=== PATIENT | female | born 1980 | race African-American/Black ===

== ENCOUNTER 2017-02-27 17:58 | Inpatient (IN) | payer MEDICARE, OTHER ==
[2017-02-27] MEDS ORDERED: SODIUM CHLORIDE 0.9% 1,000 ML IV STA (18:26)
[2017-02-27 18:29] LABS: Glucose,Whole Blood 125 mg/dL (75-99)
--- NOTE | 2017-02-27 18:39 | ED ---
Overdose HPI - General Stated Complaint: overdose Time Seen by Provider: 02/27/17 18:00 - History of Present Illness Initial Comments: 36-year-old female with psychiatric history states she was hearing voices and took a lot of her medication appears as though she may have taken up to 40 trazodone. Exact time is unknown. The patient is not able give a reliable history. She has used cocaine according to the nurses history. According to previous notes she has bipolar schizoaffective disorder and polysubstance abuse - Related Data Home Medications Medication Instructions Recorded Confirmed Omeprazole [PriLOSEC] 20 mg PO AC-BID 12/14/13 02/27/17 ARIPiprazole [Abilify] 15 mg PO DAILY 02/27/17 02/27/17 Albuterol Sulfate [Proair Hfa] 2 puff INHALATION RT-Q6H PRN 02/27/17 02/27/17 Citalopram Hydrobromide [CeleXA] 40 mg PO DAILY 02/27/17 02/27/17 Ibuprofen [Motrin] 800 mg PO TID PRN 02/27/17 02/27/17 Oxybutynin Chloride [Ditropan] 5 mg PO HS 02/27/17 02/27/17 Ranitidine HCl [Zantac] 150 mg PO BID 02/27/17 02/27/17 Trihexyphenidyl HCl 5 mg PO BID 02/27/17 02/27/17 busPIRone HCL 15 mg PO TID 02/27/17 02/27/17 fluPHENAZine DECANOATE [Prolixin 50 mg IM MO 02/27/17 02/27/17 Decanoate] traZODone HCL 300 mg PO HS 02/27/17 02/27/17 Allergies Allergy/AdvReac Type Severity Reaction Status Date / Time No Known Allergies Allergy Verified 04/13/16 19:05 Review of Systems ROS Statement: Those systems with pertinent positive or pertinent negative responses have been documented in the HPI. ROS Other: All systems not noted in ROS Statement are negative. Limitations: ROS unobtainable due to patients medical condition Past Medical History Past Medical History: Asthma, GERD/Reflux History of Any Multi-Drug Resistant Organisms: None Reported Past Surgical History: Hysterectomy, Orthopedic Surgery Additional Past Surgical History / Comment(s): Unknown surgery dates. Right foot surgery. Partial Hysterectomy. Birthmark Removal. Right shoulder surgery Past Anesthesia/Blood Transfusion Reactions: No Reported Reaction Past Psychological History: Anxiety, Bipolar, Depression, Schizoaffective Disorder Smoking Status: Current every day smoker Past Alcohol Use History: Daily Additional Past Alcohol Use History / Comment(s): Pt. states she drinks one or two beers a day. Past Drug Use History: Cocaine, Marijuana Additional Drug Use History / Comment(s): Pt. states she abuses crack cocaine and states she takes "a hit" but won't state how often. - Past Family History Mother Family Medical History: Diabetes Mellitus, Hypertension General Exam Limitations: altered mental status General appearance: alert Head exam: Present: atraumatic Eye exam: Present: PERRL, EOMI ENT exam: Present: normal oropharynx, mucous membranes moist Neck exam: Present: normal inspection Respiratory exam: Present: normal lung sounds bilaterally Cardiovascular Exam: Present: regular rate, normal heart sounds GI/Abdominal exam: Present: soft, normal bowel sounds. Absent: tenderness Neurological exam: Present: alert, CN II-XII intact Psychiatric exam: Present: agitated, anxious Skin exam: Present: warm, dry Course Vital Signs 02/27/17 02/27/17 02/27/17 18:43 18:46 19:48 Temperature 97.1 F L 98.3 F Pulse Rate 84 84 66 Respiratory 18 18 18 Rate Blood Pressure 119/66 130/60 123/57 O2 Sat by Pulse 99 99 100 Oximetry Medical Decision Making - Medical Decision Making Spoke to Dr. Lentz network operations center technician for Dr. Dixon, be admitted to the CCU EKG was checked and spoken to poison control they were have recommended IV magnesium spoken to Dr. José the principal account clerk and patient will be admitted to ICU - Lab Data Result diagrams: 02/27/17 18:25 02/27/17 18:25 Lab Results 02/27/17 02/27/17 02/27/17 Range/Units 18:25 18:25 18:25 WBC (3.8-10.6) k/uL RBC (3.80-5.40) m/uL Hgb (11.4-16.0) gm/dL Hct (34.0-46.0) % MCV (80.0-100.0) fL MCH (25.0-35.0) pg MCHC (31.0-37.0) g/dL RDW (11.5-15.5) % Plt Count (150-450) k/uL Neutrophils % % Lymphocytes % % Monocytes % % Eosinophils % % Basophils % % Neutrophils # (1.3-7.7) k/uL Lymphocytes # (1.0-4.8) k/uL Monocytes # (0-1.0) k/uL Eosinophils # (0-0.7) k/uL Basophils # (0-0.2) k/uL Sodium 143 (137-145) mmol/L Potassium 3.3 L (3.5-5.1) mmol/L Chloride 111 H (98-107) mmol/L Carbon Dioxide 19 L (22-30) mmol/L Anion Gap 13 mmol/L BUN 5 L (7-17) mg/dL Creatinine 0.80 (0.52-1.04) mg/dL Est GFR (MDRD) Af Amer >60 (>60 ml/min/1.73 sqM) Est GFR (MDRD) Non-Af >60 (>60 ml/min/1.73 sqM) Glucose 108 H (74-99) mg/dL POC Glucose (mg/dL) 125 H (75-99) mg/dL POC Glu Band Edger ID Fide Gardiner Calcium 10.1 (8.4-10.2) mg/dL Total Bilirubin 0.9 (0.2-1.3) mg/dL AST 24 (14-36) U/L ALT 28 (9-52) U/L Alkaline Phosphatase 86 (38-126) U/L Total Creatine Kinase 213 H (30-135) U/L CK-MB (CK-2) 1.2 (0.0-2.4) ng/mL CK-MB (CK-2) Rel Index 0.6 Total Protein 7.4 (6.3-8.2) g/dL Albumin 4.5 (3.5-5.0) g/dL Urine HCG, Qual (Not Detectd) Salicylates <1.0 mg/dL Urine Opiates Screen (NotDetected) Ur Oxycodone Screen (NotDetected) Urine Methadone Screen (NotDetected) Ur Propoxyphene Screen (NotDetected) Acetaminophen <10.0 ug/mL Ur Barbiturates Screen (NotDetected) U Tricyclic Antidepress (NotDetected) Ur Phencyclidine Scrn (NotDetected) Ur Amphetamines Screen (NotDetected) U Methamphetamines Scrn (NotDetected) U Benzodiazepines Scrn (NotDetected) Urine Cocaine Screen (NotDetected) U Marijuana (THC) Screen (NotDetected) Serum Alcohol <10 mg/dL 02/27/17 02/27/17 02/27/17 Range/Units 18:25 18:37 18:37 WBC 8.6 (3.8-10.6) k/uL RBC 3.99 (3.80-5.40) m/uL Hgb 12.8 (11.4-16.0) gm/dL Hct 37.0 (34.0-46.0) % MCV 92.7 (80.0-100.0) fL MCH 32.0 (25.0-35.0) pg MCHC 34.5 (31.0-37.0) g/dL RDW 14.1 (11.5-15.5) % Plt Count 327 (150-450) k/uL Neutrophils % 66 % Lymphocytes % 27 % Monocytes % 4 % Eosinophils % 1 % Basophils % 0 % Neutrophils # 5.7 (1.3-7.7) k/uL Lymphocytes # 2.3 (1.0-4.8) k/uL Monocytes # 0.4 (0-1.0) k/uL Eosinophils # 0.1 (0-0.7) k/uL Basophils # 0.0 (0-0.2) k/uL Sodium (137-145) mmol/L Potassium (3.5-5.1) mmol/L Chloride (98-107) mmol/L Carbon Dioxide (22-30) mmol/L Anion Gap mmol/L BUN (7-17) mg/dL Creatinine (0.52-1.04) mg/dL Est GFR (MDRD) Af Amer (>60 ml/min/1.73 sqM) Est GFR (MDRD) Non-Af (>60 ml/min/1.73 sqM) Glucose (74-99) mg/dL POC Glucose (mg/dL) (75-99) mg/dL POC Glu Band Edger ID Calcium (8.4-10.2) mg/dL Total Bilirubin (0.2-1.3) mg/dL AST (14-36) U/L ALT (9-52) U/L Alkaline Phosphatase (38-126) U/L Total Creatine Kinase (30-135) U/L CK-MB (CK-2) (0.0-2.4) ng/mL CK-MB (CK-2) Rel Index Total Protein (6.3-8.2) g/dL Albumin (3.5-5.0) g/dL Urine HCG, Qual Not Detected (Not Detectd) Salicylates mg/dL Urine Opiates Screen Detected H (NotDetected) Ur Oxycodone Screen Not Detected (NotDetected) Urine Methadone Screen Not Detected (NotDetected) Ur Propoxyphene Screen Not Detected (NotDetected) Acetaminophen ug/mL Ur Barbiturates Screen Not Detected (NotDetected) U Tricyclic Antidepress Not Detected (NotDetected) Ur Phencyclidine Scrn Not Detected (NotDetected) Ur Amphetamines Screen Not Detected (NotDetected) U Methamphetamines Scrn Not Detected (NotDetected) U Benzodiazepines Scrn Detected H (NotDetected) Urine Cocaine Screen Detected H (NotDetected) U Marijuana (THC) Screen Detected H (NotDetected) Serum Alcohol mg/dL - EKG Data -: EKG Interpreted by Me 02/27/17 20:18 EKG 02/27/2017 1941 ventricular rate 60 bpm VT interval 138 ms QRS duration 86 ms QT interval 506 ms normal sinus rhythm prolonged QT Critical Care Time Critical Care Time: Yes Total Critical Care Time: 45 Disposition Clinical Impression: Overdose Disposition: ADMITTED IP TO THIS [facility] Condition: Critical Referrals: Cleo Dixon DO [Primary Care Provider] - 1-2 days Time of Disposition: 20:29
[2017-02-27 18:49] LABS: Basophils % (A) 0 %; CH 31.4; Eosinophils # (A) 0.1 k/uL (0-0.7); Eosinophils % (A) 1 %; HDW 2.53; HGB 12.8 gm/dL (11.4-16.0); Luc # (Auto) 0.14; Luc % (Auto) 2; Lymphocytes # (A) 2.3 k/uL (1.0-4.8); Lymphocytes % (A) 27 %; MCHC 34.5 g/dL (31.0-37.0); MCV 92.7 fL (80.0-100.0); Mean Platelet Volume 8.2; Monocytes # (A) 0.4 k/uL (0-1.0); Monocytes % (A) 4 %; Neutrophils # (A) 5.7 k/uL (1.3-7.7); Neutrophils % (A) 66 %; RBC 3.99 m/uL (3.80-5.40); RDW 14.1 % (11.5-15.5); WBC 8.6 k/uL (3.8-10.6); WBC (Perox) 8.38
--- NOTE | 2017-02-27 18:58 | XR ---
EXAMINATION TYPE: XR chest 1V portable DATE OF EXAM: 02/27/2017 COMPARISON: NONE HISTORY: Drug overdose TECHNIQUE: Single AP portable frontal upright view of the chest is obtained. FINDINGS: There is no focal air space opacity, pleural effusion, or pneumothorax seen. The cardiac silhouette size is within normal limits. The osseous structures are intact. IMPRESSION: No acute process.
[2017-02-27 19:04] LABS: ALT 28 U/L (9-52); AST 24 U/L (14-36); Acetaminophen <10.0 ug/mL; Alcohol <10 mg/dL; Alkaline Phosphatase 86 U/L (38-126); Anion Gap 13 mmol/L; Blood Urea Nitrogen 5 mg/dL (7-17); Calcium 10.1 mg/dL (8.4-10.2); Carbon Dioxide 19 mmol/L (22-30); Chloride 111 mmol/L (98-107); Glucose 108 mg/dL (74-99); Non-African American GFR(MDRD) >60 (>60 ml/min/1.73 sqM); Potassium 3.3 mmol/L (3.5-5.1); Salicylate <1.0 mg/dL; Sodium 143 mmol/L (137-145); Total Bilirubin 0.9 mg/dL (0.2-1.3); Total Protein 7.4 g/dL (6.3-8.2)
[2017-02-27 19:33] LABS: Creatine Kinase MB 1.2 ng/mL (0.0-2.4)
[2017-02-27] MEDS ORDERED: POTASSIUM CHLORIDE 10 MEQ, LIDOCAINE 2% INJ 10 MG in SODIUM CHLORIDE 0.9% 100 ML IVPB SCH (20:00)
[2017-02-27] MEDS ORDERED: METOCLOPRAMIDE 5 MG/ML 2 ML VIAL IVP STA (20:25)
[2017-02-27] MEDS ORDERED: NALOXONE 0.4 MG/ML 1 ML VIAL IV PRN (20:30)
[2017-02-27] MEDS ORDERED: PANTOPRAZOLE 40 MG/10 ML VIAL IV SCH (20:30)
[2017-02-27] MEDS ORDERED: ALBUTEROL NEBULIZED 2.5 MG/3 ML INHALATION PRN (20:33)
[2017-02-27] MEDS: MAGNESIUM SULFATE-D5W PMX 1 GM in DEXTROSE/WATER 1 100ML.BAG IVPB SCH (20:41)
[2017-02-27] MEDS: SODIUM CHLORIDE 0.9% 1,000 ML IV SCH (20:42)
[2017-02-27 21:40] LABS: Glucose,Whole Blood 138 mg/dL (75-99)
[2017-02-27 21:58] VITALS: BMI 33.8
[2017-02-28 01:07] LABS: Magnesium 2.2 mg/dL (1.6-2.3); Potassium 3.6 mmol/L (3.5-5.1)
[2017-02-28] MEDS ORDERED: Potassium Replacement Protocol 1 EACH MISC MISCELLANE PRN (01:15)
[2017-02-28] MEDS: MAGNESIUM SULFATE-D5W PMX 1 GM in DEXTROSE/WATER 1 100ML.BAG IVPB SCH (01:20)
[2017-02-28] MEDS: POTASSIUM CHLORIDE 10 MEQ, LIDOCAINE 2% INJ 10 MG in SODIUM CHLORIDE 0.9% 100 ML IV SCH ×2 (01:45→02:53)
[2017-02-28 04:33] LABS: Basophils % (A) 1 %; CH 31.2; CHCM 32.1; Eosinophils # (A) 0.1 k/uL (0-0.7); Eosinophils % (A) 1 %; HCT 35.6 % (34.0-46.0); HDW 2.33; HGB 11.6 gm/dL (11.4-16.0); Luc # (Auto) 0.06; Luc % (Auto) 1; Lymphocytes # (A) 0.8 k/uL (1.0-4.8); Lymphocytes % (A) 14 %; MCH 31.7 pg (25.0-35.0); MCHC 32.5 g/dL (31.0-37.0); MCV 97.6 fL (80.0-100.0); Mean Platelet Volume 8.1; Monocytes # (A) 0.3 k/uL (0-1.0); Monocytes % (A) 5 %; Neutrophils # (A) 4.4 k/uL (1.3-7.7); Neutrophils % (A) 78 %; RBC 3.65 m/uL (3.80-5.40); RDW 14.1 % (11.5-15.5); WBC 5.6 k/uL (3.8-10.6); WBC (Perox) 5.66
[2017-02-28 04:45] LABS: ALT 24 U/L (9-52); AST 21 U/L (14-36); Alkaline Phosphatase 68 U/L (38-126); Anion Gap 10 mmol/L; Blood Urea Nitrogen 6 mg/dL (7-17); Calcium 9.5 mg/dL (8.4-10.2); Carbon Dioxide 13 mmol/L (22-30); Chloride 117 mmol/L (98-107); Glucose 126 mg/dL (74-99); Non-African American GFR(MDRD) >60 (>60 ml/min/1.73 sqM); Potassium 3.8 mmol/L (3.5-5.1); Sodium 140 mmol/L (137-145); Total Protein 6.2 g/dL (6.3-8.2)
[2017-02-28] MEDS: ARIPiprazole 15 MG TAB PO SCH (09:21)
[2017-02-28] MEDS: CITALOPRAM HYDROBROMIDE 20 MG TAB PO SCH (09:21)
[2017-02-28] MEDS: SODIUM CHLORIDE 0.9% 1,000 ML IV SCH ×3 (09:21→21:55)
[2017-02-28] MEDS: busPIRone HCl 5 MG TAB PO SCH ×3 (09:22→21:53)
[2017-02-28] MEDS: PANTOPRAZOLE 40 MG TABLET PO SCH (10:12)
--- NOTE | 2017-02-28 13:00 | CONS ---
A 36 year old female who apparently has psychiatric history. Took an unknown number of Trazodone. I was told by the ER doctor that she took up to 40 Trazodone. She was admitted to the ICU for monitoring and evaluation of her QT interval. The patient apparently has a history of polysubstance abuse, schizoaffective disorder and bipolar disorder. Anyway the patient is here in the ICU resting comfortably. Her home medications include: 1. Omeprazole. 2. Abilify. 3. Pro-Air HFA inhaler. 4. Celexa. 5. Motrin. 6. Ditropan. 7. Zantac. 8. ( ). 9. Hydrochloride. 10. BuSpar. 11. Prolixin. 12. Trazodone. ALLERGIES: Denied. Medical history includes schizoaffective disorder, bipolar disorder, mild asthma , gastroesophageal reflux disease. Surgical history includes right shoulder surgery, right foot surgery, aniya removal, partial hysterectomy, orthopedic procedures. Social history is positive for tobacco use. There is also history of marijuana use. She has abused crack cocaine in the past. Family history is positive for diabetes and hypertension. She does drink one to beers a day as well. REVIEW OF SYSTEMS: CONSTITUTIONAL: Negative. NEUROLOGICAL: Negative. HEENT: Negative. CARDIOVASCULAR: Negative. PULMONARY: Negative. GI/: Negative. HEMATOLOGICAL: Negative. RHEUMATOLOGICAL: Negative. ENDOCRINOLOGICAL: Negative. DERMATOLOGICAL: All negative. Currently, her temperature is 99.1, heart rate is 69. Respiratory rate is 11. Blood pressure 122/64. Mean 83. Room air saturation 96%. Appears in no acute distress. HEENT: Grossly unremarkable. Mucous membranes are moist. No oral lesions. Neck supple. Full range of motion. No adenopathy. no thyromegaly. Cardiovascular examination reveals regular rate and rhythm. S1, S2 normal. Lungs reveal clear breath sounds. No wheezes, rhonchi or crackles. Abdomen soft. Bowel sounds heard. There are no masses or tenderness. Skin without rash. Neurological examination nonfocal. Extremities revealed no evidence of edema, cyanosis or clubbing. Labs are reviewed. White count 5.6, hemoglobin 11.6, hematocrit 35.6, platelet count ( ). Sodium and potassium normal. Chloride 117, CO2 13, anion gap 10. BUN and creatinine 6 and 0.9 consistent with an non-anion gap, hyperchloremic metabolic acidosis and saline administration. Her drug screen was positive for opiates as well as benzodiazepines, cocaine and marijuana. Her alcohol level was less than 10. Her Tylenol level was less than 10. Salicylate level less than 1. Urine HCG was negative. Chest x-ray showed no acute abnormality. ASSESSMENT: 1. Overdose which may have been a suicide attempt. 2. History of asthma. 3. History of gastroesophageal reflux disease. 4. History of schizoaffective disorder. 5. History of depression. 6. History of bipolar disorder. PLAN: From my perspective, the patient could be discharged out of the unit. She could go to either psych or general medical floor with a sitter. Will continue to follow. Medications were reviewed. Prognosis guarded. MTDD
[2017-02-28] MEDS ORDERED: Phosphorus Replacement Protoco 1 EACH MISC MISCELLANE PRN (14:50)
[2017-02-28] MEDS: SODIUM PHOSPHATE 10 MMOL in SODIUM CHLORIDE 0.9% 250 ML IVPB SCH ×2 (15:39→17:49)
[2017-02-28] MEDS ORDERED: POTASSIUM CHLORIDE ER 20 MEQ TAB.ER PO SCH (16:00)
--- NOTE | 2017-02-28 16:50 | P.HPIM ---
History of Present Illness H&P Date: 02/28/17 Chief Complaint: Medication overdose Patient is a 36-year-old female with psychiatric history states she was hearing voices and took a lot of her medication appears as though she may have taken up to 40 trazodone. Exact time is unknown. The patient is not able give a reliable history. She has used cocaine according to the nurses history. According to previous notes she has bipolar schizoaffective disorder and polysubstance abuse. Her primary care physician is Dr. Bertha Dixon, she has seen multiple psychiatrists in the past but none recently per patient. Past Medical History Past Medical History: Asthma, GERD/Reflux History of Any Multi-Drug Resistant Organisms: None Reported Past Surgical History: Hysterectomy, Orthopedic Surgery Additional Past Surgical History / Comment(s): Partial hysterectomy possible. Unknown surgery dates. Right foot surgery. Birthmark Removal. Right shoulder surgery Past Anesthesia/Blood Transfusion Reactions: No Reported Reaction Past Psychological History: Anxiety, Bipolar, Depression, Schizoaffective Disorder Smoking Status: Current every day smoker Past Alcohol Use History: Daily Additional Past Alcohol Use History / Comment(s): Pt. states she drinks one or two beers a day. Past Drug Use History: Cocaine, Marijuana, Prescription Drug Abuse Additional Drug Use History / Comment(s): Pt. states she abuses crack cocaine and states she takes "a hit" but won't state how often. - Past Family History Mother Family Medical History: Diabetes Mellitus, Hypertension Medications and Allergies Home Medications Medication Instructions Recorded Confirmed Type Omeprazole [PriLOSEC] 20 mg PO AC-BID 12/14/13 02/27/17 History ARIPiprazole [Abilify] 15 mg PO DAILY 02/27/17 02/27/17 History Albuterol Sulfate [Proair Hfa] 2 puff INHALATION RT-Q6H PRN 02/27/17 02/27/17 History Citalopram Hydrobromide [CeleXA] 40 mg PO DAILY 02/27/17 02/27/17 History Ibuprofen [Motrin] 800 mg PO TID PRN 02/27/17 02/27/17 History Oxybutynin Chloride [Ditropan] 5 mg PO HS 02/27/17 02/27/17 History Ranitidine HCl [Zantac] 150 mg PO BID 07/15/17 07/15/17 History Trihexyphenidyl HCl 5 mg PO BID 02/27/17 02/27/17 History busPIRone HCL 15 mg PO TID 02/27/17 02/27/17 History fluPHENAZine DECANOATE [Prolixin 50 mg IM MO 02/27/17 02/27/17 History Decanoate] traZODone HCL 300 mg PO HS 02/27/17 02/27/17 History Allergies Allergy/AdvReac Type Severity Reaction Status Date / Time No Known Allergies Allergy Verified 04/13/16 19:05 Physical Exam Vitals: Vital Signs Temp Pulse Pulse Resp BP BP Pulse Ox 02/28/17 13:00 87 19 120/53 97 02/28/17 12:00 84 62 15 130/88 97 02/28/17 11:50 63 26 H 130/88 98 02/28/17 11:40 63 20 130/88 98 02/28/17 11:30 62 16 122/80 98 02/28/17 11:20 60 18 122/80 99 02/28/17 11:10 64 12 122/80 99 02/28/17 11:00 65 17 122/80 98 02/28/17 10:50 63 18 122/80 98 02/28/17 10:40 69 16 122/80 99 02/28/17 10:30 69 15 148/85 98 02/28/17 10:20 65 15 148/85 02/28/17 10:10 62 13 148/85 02/28/17 10:00 61 13 148/85 02/28/17 09:50 74 14 148/85 02/28/17 09:40 60 12 148/85 02/28/17 09:30 67 16 140/64 02/28/17 09:20 64 22 140/64 02/28/17 09:10 57 L 11 L 140/64 02/28/17 09:00 98.8 F 63 10 L 140/64 02/28/17 08:50 70 17 140/64 02/28/17 08:40 72 19 140/64 02/28/17 08:30 73 12 136/65 02/28/17 08:20 73 12 136/65 02/28/17 08:10 79 12 136/65 02/28/17 08:00 83 62 14 136/65 98 07/16/17 07:50 81 13 136/65 98 02/28/17 07:40 81 10 L 136/65 98 02/28/17 07:30 85 15 129/60 98 02/28/17 07:20 74 11 L 129/60 98 02/28/17 07:10 67 11 L 129/60 98 02/28/17 07:00 74 12 129/60 02/28/17 06:50 65 16 129/60 02/28/17 06:40 68 17 129/60 02/28/17 06:30 67 31 H 140/69 02/28/17 06:20 66 14 140/69 98 02/28/17 06:10 65 16 140/69 98 02/28/17 06:00 64 19 140/69 98 02/28/17 05:50 60 14 140/69 02/28/17 05:40 59 L 12 140/69 02/28/17 05:30 60 13 117/68 98 02/28/17 05:20 63 13 117/68 98 02/28/17 05:10 86 17 117/68 97 02/28/17 05:00 62 17 117/68 97 02/28/17 04:50 60 18 117/68 99 02/28/17 04:40 63 14 117/68 98 02/28/17 04:30 64 16 122/64 97 02/28/17 04:20 69 10 L 122/64 98 02/28/17 04:10 69 15 122/64 96 02/28/17 04:00 99.1 F 72 62 11 L 122/64 96 02/28/17 03:50 82 11 L 122/64 97 02/28/17 03:40 79 11 L 122/64 97 02/28/17 03:30 99 18 124/74 98 02/28/17 03:20 81 24 124/74 97 16/ 03:10 64 10 L 124/74 98 02/28/17 03:00 68 17 124/74 98 02/28/17 02:50 68 11 L 124/74 97 16/17 02:40 65 17 124/74 98 02/28/17 02:30 68 12 140/79 97 02/28/ 02:20 69 11 L 140/79 97 02/28/17 02:10 67 12 140/79 98 02/28/17 02:00 71 28 H 140/79 98 02/28/17 01:50 68 20 140/79 97 02/28/17 01:40 72 25 H 140/79 96 02/28/17 01:30 71 15 131/67 97 02/28/17 01:20 70 15 131/67 97 02/28/17 01:10 69 21 131/67 98 02/28/17 01:00 67 21 131/67 97 02/28/17 00:50 66 22 131/67 97 02/28/17 00:40 69 18 131/67 97 02/28/17 00:30 67 24 128/61 99 02/28/17 00:20 66 20 128/61 99 02/28/17 00:10 63 21 128/61 98 02/28/17 00:00 98.1 F 65 62 11 L 128/61 97 02/27/17 23:50 65 18 128/61 96 02/27/17 23:40 66 17 128/61 98 02/27/17 23:30 60 23 112/70 98 02/27/17 23:20 64 13 112/70 98 02/27/17 23:10 61 16 112/70 97 02/27/17 23:08 61 11 L 112/70 97 02/27/17 23:00 61 29 H 112/70 97 02/27/17 22:50 61 11 L 112/70 99 02/27/17 22:40 60 30 H 112/70 100 02/27/17 22:30 56 L 13 106/70 99 02/27/17 22:20 58 L 29 H 106/70 100 02/27/17 22:10 61 31 H 106/70 100 02/27/17 22:00 60 12 106/70 100 02/27/17 21:50 61 36 H 106/70 100 02/27/17 21:40 98.7 F 58 L 12 106/70 100 02/27/17 21:33 62 18 02/27/17 20:50 98.7 F 62 16 106/70 100 02/27/17 20:43 98.0 F 62 18 131/62 100 02/27/17 19:48 98.3 F 66 18 123/57 100 02/27/17 18:46 84 18 130/60 99 02/27/17 18:43 97.1 F L 84 18 119/66 99 Intake and Output 02/28/17 02/28/17 02/28/17 06:59 14:59 22:59 Intake Total 1200 750 Output Total 0 Balance 1200 750 Intake: IV 1200 750 Potassium Chloride 10 meq 200 375 Lidocaine 2% Inj 10 mg In Sodium Chloride 0.9% 100 ml @ 100 mls/hr IV Q1HR JESSEE Rx#:[id number] Sodium Chloride 0.9% 1, 1000 375 000 ml @ 125 mls/hr IV . Q8H JESSEE Rx#:[id number] Output: Urine 0 Other: Voiding Method Toilet Toilet # Voids 1 0 # Bowel Movements 1 Weight 103.9 kg In general patient is alert and oriented 3 in no apparent distress HEENT head normocephalic and atraumatic Neck is supple no JVD no goiter no lymphadenopathy Chest exam reveals a few scattered crackles no wheezing Cardiac exam reveals regular heart sounds S1 and S2 no gallops no murmurs Abdomen is soft, nontender no organomegaly with normal bowel sounds Extremity exam reveals no edema no cyanosis or clubbing Results CBC & Chem 7: 02/28/17 04:12 02/28/17 04:12 Labs: Abnormal Lab Results - Last 24 Hours (Table) 02/27/17 02/27/17 02/27/17 Range/Units 18:25 18:25 18:25 RBC (3.80-5.40) m/uL Lymphocytes # (1.0-4.8) k/uL Potassium 3.3 L (3.5-5.1) mmol/L Chloride 111 H (98-107) mmol/L Carbon Dioxide 19 L (22-30) mmol/L BUN 5 L (7-17) mg/dL Glucose 108 H (74-99) mg/dL POC Glucose (mg/dL) 125 H (75-99) mg/dL Phosphorus (2.5-4.5) mg/dL Total Creatine Kinase 213 H (30-135) U/L Total Protein (6.3-8.2) g/dL Urine Opiates Screen (NotDetected) U Benzodiazepines Scrn (NotDetected) Urine Cocaine Screen (NotDetected) U Marijuana (THC) Screen (NotDetected) 02/27/17 02/27/17 02/28/17 Range/Units 18:37 21:38 04:12 RBC 3.65 L (3.80-5.40) m/uL Lymphocytes # 0.8 L (1.0-4.8) k/uL Potassium (3.5-5.1) mmol/L Chloride (98-107) mmol/L Carbon Dioxide (22-30) mmol/L BUN (7-17) mg/dL Glucose (74-99) mg/dL POC Glucose (mg/dL) 138 H (75-99) mg/dL Phosphorus (2.5-4.5) mg/dL Total Creatine Kinase (30-135) U/L Total Protein (6.3-8.2) g/dL Urine Opiates Screen Detected H (NotDetected) U Benzodiazepines Scrn Detected H (NotDetected) Urine Cocaine Screen Detected H (NotDetected) U Marijuana (THC) Screen Detected H (NotDetected) 02/28/17 02/28/17 Range/Units 04:12 04:12 RBC (3.80-5.40) m/uL Lymphocytes # (1.0-4.8) k/uL Potassium (3.5-5.1) mmol/L Chloride 117 H (98-107) mmol/L Carbon Dioxide 13 L (22-30) mmol/L BUN 6 L (7-17) mg/dL Glucose 126 H (74-99) mg/dL POC Glucose (mg/dL) (75-99) mg/dL Phosphorus 1.8 L (2.5-4.5) mg/dL Total Creatine Kinase (30-135) U/L Total Protein 6.2 L (6.3-8.2) g/dL Urine Opiates Screen (NotDetected) U Benzodiazepines Scrn (NotDetected) Urine Cocaine Screen (NotDetected) U Marijuana (THC) Screen (NotDetected) Thrombosis Risk Factor Assmnt - Choose All That Apply Any of the Below Risk Factors Present?: Yes Each Factor Represents 1 point: Obesity (BMI >25) Thrombosis Risk Factor Assessment Total Risk Factor Score: 1 Thrombosis Risk Factor Assessment Level: Low Risk Assessment and Plan Plan: #1 medication overdose, patient admits to taking more than 40 tablets of trazodone #2 underlying history of psychiatric illness with bipolar and schizoaffective disorder per chart review #3 previous history of polysubstance abuse #4 evidence of opiate, benzodiazepine, cocaine, and marijuana use on the urine toxicology on presentation #5 evidence of QT prolongation at this time patient was admitted to intensive care unit. At this time Will continue With telemetry monitoring #6 psychiatry consultation patient likely will need a psychiatry admission #7 continue with suicide precaution was 1 on 1 sitter #8 hypokalemia correcting #9 consult cardiology Continue was current management. prognosis is guarded follow closely
[2017-03-01] MEDS: SODIUM CHLORIDE 0.9% 1,000 ML IV SCH ×3 (05:42→22:39)
[2017-03-01] MEDS: PANTOPRAZOLE 40 MG TABLET PO SCH (08:13)
[2017-03-01] MEDS: CITALOPRAM HYDROBROMIDE 20 MG TAB PO SCH (08:13)
[2017-03-01] MEDS: ARIPiprazole 15 MG TAB PO SCH (08:14)
[2017-03-01] MEDS: busPIRone HCl 5 MG TAB PO SCH ×3 (08:14→22:38)
--- NOTE | 2017-03-01 08:23 | CONS ---
IDENTIFYING DATA: This is a 36-year-old female patient. HISTORY OF PRESENT ILLNESS: Ms. Borja presents to the medical floor as admission at [facility] after having taken an overdose of approximately 40 trazodone per chart history. Per chart history, she was hearing voices. Patient states that she took some pills to sleep and relays that she probably took like 10 pills of trazodone. She says her said that she was acting different and she reports that she did not have thoughts of suicide at the time she took the pills. She just wanted to sleep. She says her mood lately has been all right. She says, "Just kind of toasty". PSYCHIATRIC HISTORY: Her home medications recently have been trazodone 300 mg at bedtime, Prolixin Decanoate 50 mg IM monthly, BuSpar 15 mg t.i.d., trihexyphenidyl 5 mg b.i.d., Celexa 40 mg daily, Abilify 15 mg daily. Per chart history, history of schizoaffective disorder. She says for outpatient she sees [facility] as a counselor and Dr. Mcmanus is her psychiatrist. She has had one inpatient psychiatric admission in the past. No history of suicide attempts. PSYCHIATRIC FAMILY HISTORY: Denies. MEDICATION HISTORY: Asthma, gastroesophageal reflux disease, hysterectomy, right foot surgery, right shoulder surgery. CURRENT MEDICATIONS: Ventolin p.r.n., Abilify, BuSpar, Celexa and Narcan p.r.n. , Protonix. DRUG AND ALCOHOL HISTORY: Per chart history, history of crack cocaine use. Patient denies cocaine use. She says marijuana occasionally. SOCIAL HISTORY: She works 24 hours a week at [employer]. She does not have any children, lives alone. She says she is to a female. MENTAL STATUS EXAM: She is alert. Overall cooperative, not showing any significant agitation. Her though processes are disorganized. She describes her mood as "all right". She denies any hallucinations. She denies any thoughts of harm to self or others. IMPRESSION: 1. Schizoaffective disorder, bipolar type by history. 2. Rule out cannabis and cocaine use disorders. PLAN/RECOMMENDATIONS: I would recommend inpatient psychiatric stabilization after medical clearance. Would maintain one-to-one precaution at this point in time as the patient does not appear to be agreeable to voluntary admission at this point in time. We may need to have a petition and first clinical cert done for involuntary commitment. Recommend inpatient psychiatric hospitalization to help stabilize her status after trazodone overdose. RANDA
[2017-03-01 10:03] LABS: ALT 27 U/L (9-52); AST 16 U/L (14-36); Alkaline Phosphatase 59 U/L (38-126); Anion Gap 7 mmol/L; Blood Urea Nitrogen 7 mg/dL (7-17); Calcium 8.8 mg/dL (8.4-10.2); Carbon Dioxide 17 mmol/L (22-30); Chloride 118 mmol/L (98-107); Glucose 88 mg/dL (74-99); Non-African American GFR(MDRD) >60 (>60 ml/min/1.73 sqM); Potassium 3.6 mmol/L (3.5-5.1); Sodium 142 mmol/L (137-145); Total Bilirubin 0.6 mg/dL (0.2-1.3); Total Protein 5.8 g/dL (6.3-8.2)
--- NOTE | 2017-03-01 11:33 | P.DS ---
Providers Date of admission: 02/27/17 20:30 Expected date of discharge: 03/01/17 Attending physician: Abida Lentz Consults: 02/27/17 20:30 Consult Physician Stat Consulting Provider: Sundeep José Consult Reason/Comments: Trazodone overdose ICU management Do you want consulting provider notified?: Already Contacted 02/27/17 22:20 Consult Physician Urgent Consulting Provider: Malika Gonzalez Consult Reason/Comments: Suicidal thoughts, hearing Voices, trazadone OD Do you want consulting provider notified?: Yes, Notify in am 02/28/17 16:50 Consult Physician Routine Consulting Provider: Rosana Lugo Consult Reason/Comments: QT prolongation Do you want consulting provider notified?: Yes Primary care physician: Cleo Dixon Hospital Course: Discharge diagnosis #1 medication overdose, patient admits to taking more than 40 tablets of trazodone #2 underlying history of psychiatric illness with bipolar and schizoaffective disorder per chart review #3 previous history of polysubstance abuse #4 evidence of opiate, benzodiazepine, cocaine, and marijuana use on the urine toxicology on presentation #5 evidence of QT prolongation at this time patient was admitted to intensive care unit. Patient had repeat EKG this morning was evaluated by cardiology. They have cleared her for transfer to the psychiatric unit #6 psychiatry consultation patient likely will need a psychiatry admission #7 continue with suicide precaution was 1 on 1 sitter #8 hypokalemia resolved #9 hypophosphatemia. Patient did receive supplement yesterday for phosphorus level of 1.8. Repeat phosphorus level pending. Continue to follow Hospital course Patient is a 36-year-old female with psychiatric history states she was hearing voices and took a lot of her medication appears as though she may have taken up to 40 trazodone. Exact time is unknown. The patient is not able give a reliable history. She has used cocaine according to the nurses history. According to previous notes she has bipolar schizoaffective disorder and polysubstance abuse. Her primary care physician is Dr. Bertha Dixon, she has seen multiple psychiatrists in the past but none recently per patient. Patient was initially admitted to the ICU. Pulmonary service was consulted for ICU management. Cardiology was consulted for evidence of prolonged QT interval. Patient seen and evaluated by cardiology this morning. They have cleared her for discharge. QT prolongation likely medication induced. Her trazodone is currently on hold. Awaiting trazodone level. And psychiatry will dose the trazodone accordingly. Patient is medically stable for transfer to the psychiatric unit has been cleared by both cardiology and pulmonary service. And she is medically stable to proceed with transfer. Please refer to chart for any further details. We'll follow-up with phosphorus level in the psychiatric unit. Patient Condition at Discharge: Stable Plan - Discharge Summary New Discharge Prescriptions: No Action Omeprazole [PriLOSEC] 20 mg PO AC-BID Ibuprofen [Motrin] 800 mg PO TID PRN PRN Reason: Pain Citalopram Hydrobromide [CeleXA] 40 mg PO DAILY traZODone HCL 300 mg PO HS busPIRone HCL 15 mg PO TID Trihexyphenidyl HCl 5 mg PO BID Ranitidine HCl [Zantac] 150 mg PO BID Oxybutynin Chloride [Ditropan] 5 mg PO HS Albuterol Sulfate [Proair Hfa] 2 puff INHALATION RT-Q6H PRN PRN Reason: Shortness Of Breath ARIPiprazole [Abilify] 15 mg PO DAILY fluPHENAZine DECANOATE [Prolixin Decanoate] 50 mg IM MO Discharge Medication List Omeprazole [PriLOSEC] 20 mg PO AC-BID 12/14/13 [History] ARIPiprazole [Abilify] 15 mg PO DAILY 02/27/17 [History] Albuterol Sulfate [Proair Hfa] 2 puff INHALATION RT-Q6H PRN 02/27/17 [History] Citalopram Hydrobromide [CeleXA] 40 mg PO DAILY 02/27/17 [History] Ibuprofen [Motrin] 800 mg PO TID PRN 02/27/17 [History] Oxybutynin Chloride [Ditropan] 5 mg PO HS 02/27/17 [History] Ranitidine HCl [Zantac] 150 mg PO BID 02/27/17 [History] Trihexyphenidyl HCl 5 mg PO BID 02/27/17 [History] busPIRone HCL 15 mg PO TID 02/27/17 [History] fluPHENAZine DECANOATE [Prolixin Decanoate] 50 mg IM MO 02/27/17 [History] traZODone HCL 300 mg PO HS 02/27/17 [History] Follow up Appointment(s)/Referral(s): Cleo Dixon DO [Primary Care Provider] - 1 Week Activity/Diet/Wound Care/Special Instructions: Diet: regular Activity: as tolerated Transfer patient to inpatient psych Discharge Disposition: TRANSFER TO PSYCH HOSP/UNIT
--- NOTE | 2017-03-01 13:05 | CONS ---
Mrs. Borja is a 36-year-old female who presented to the Emergency Room with overdose. Cardiology consultation was requested because of a prolonged QT interval. Patient has taken about 40 Trazodone. According to her, she denies any symptoms of cardiac abnormality. She denies any chest pain. She denies any dizziness, palpitation, no PND, no orthopnea. No peripheral edema. She had a prior history of multisubstance abuse and prior history of cocaine use. She had no evidence of arrhythmia following her admission. She has been evaluated by Dr. José as well as Dr. Stack. Her medication at the time of admission included Trazodone, Prolixin, Buspirone , Trihexiphenidyl, Ranitidine, Ditropan, Prilosec, Motrin, Celexa, ProAir and Abilify. REVIEW OF SYSTEMS: RESPIRATORY SYSTEM: No recent wheezing, no cough, no history of document lung disease. GI SYSTEM: No recent GI bleeding, no peptic ulcer disease. SYSTEM: No dysuria or hematuria. NERVOUS SYSTEM: No history of seizure. SOCIAL HISTORY: Patient smokes on a regular basis and had a history of polysubstance abuse. PHYSICAL EXAMINATION: A 36-year-old female, alert and oriented, in no apparent distress. Blood pressure 130/70 with a heart rate in the 70s. HEAD: Normocephalic. EYES: Sclerae nonicteric. NECK: Good upstroke, no bruit, no venous distension. LUNGS: Clear to auscultation. HEART: Regular rate and rhythm, S1, S2, no S3, no rub. ABDOMEN: Soft, nontender, positive bowel sounds, no organomegaly. EXTREMITIES: No edema, intact pulses. Lab data revealed on admission a positive toxicology for opiates, benzodiazepine , cocaine and marijuana. BUN and creatinine 7 and 0.8, potassium 3.6, hemoglobin of 11.6. Initial EKG reveals sinus mechanism with a normal axis and intervals and prolonged QT intervals. Her QTC was 538 ms. The EKG done today showed a normal QT interval. IMPRESSION: 1. Drug overdose with a history of polysubstance abuse. 2. QT prolongation resolved related to her drug use. 3. History of tobacco use. RECOMMENDATION: From the cardiac standpoint, there is no cardiac abnormality at this time. No cardiac workup will be needed. Thank you for this consult. Will see her on an as-needed basis. Please feel free to call is for any questions. RANDA
--- NOTE | 2017-03-01 16:51 | P.PN ---
Subjective This is a 36-year-old female patient with a known history of psychiatric illness. She states she had been hearing voices. She ended up taking 40 tablets of trazodone and was admitted for the same. Drug screen was positive for opiates, benzodiazepines, cocaine and marijuana. She was initially in the intensive care unit and seen and evaluated by Dr. José. Some QT prolongation was noted. Cardiology was consulted as well. She is seen today in follow-up on the regular medical floor. She is awake and alert in no acute distress. She denies any shortness of breath, cough or congestion. No chest pain, palpitations lightheadedness or dizziness. She is maintaining good O2 saturations in the high 90s on room air. She's been hemodynamically stable. Afebrile. Objective - Vital Signs Vital signs: Vital Signs Temp 98.0 F 03/01/17 15:00 Pulse 70 03/01/17 15:00 Resp 16 03/01/17 15:00 BP 117/69 03/01/17 15:00 Pulse Ox 99 03/01/17 15:00 Intake & Output 02/28/17 03/01/17 03/01/17 18:59 06:59 18:59 Intake Total 750 1312.5 1000 Output Total 0 20 Balance 750 1292.5 1000 Intake: IV 750 1312.5 Potassium Chloride 10 meq 375 Lidocaine 2% Inj 10 mg In Sodium Chloride 0.9% 100 ml @ 100 mls/hr IV Q1HR [facility] Rx#:[id number] Sodium Chloride 0.9% 1, 375 1312.5 000 ml @ 125 mls/hr IV . Q8H [facility] Rx#:[id number] Intake, IV Titration 1000 Amount Sodium Chloride 0.9% 1, 1000 000 ml @ 125 mls/hr IV . Q8H [facility] Rx#:[id number] Output: Urine 0 Emesis 20 Other: Voiding Method Toilet Toilet # Voids 0 1 # Bowel Movements 1 - Exam GENERAL EXAM: Alert, active, comfortable in no apparent distress. HEAD: Normocephalic. EYES: Normal reaction of pupils, equal size. NOSE: Clear with pink turbinates. THROAT: No erythema or exudates. NECK: No masses, no JVD. CHEST: No chest wall deformity. LUNGS: Equal air entry with no crackles, wheeze, rhonchi or dullness. CVS: S1 and S2 normal with no audible mumurs, regular rhythm. ABDOMEN: No hepatosplenomegaly, normal bowel sounds, no guarding or rigidity. SPINE: No scoliosis or deformity SKIN: No rashes CENTRAL NERVOUS SYSTEM: No focal deficits, tone is normal in all 4 extremities. Extremities: There is no significant peripheral edema. No clubbing, no cyanosis. Peripheral pulses are intact. - Labs CBC & Chem 7: 02/28/17 04:12 03/01/17 09:08 Labs: Abnormal Lab Results - Last 24 Hours (Table) 02/27/17 03/01/17 Range/Units 18:25 09:08 Chloride 118 H (98-107) mmol/L Carbon Dioxide 17 L (22-30) mmol/L Total Protein 5.8 L (6.3-8.2) g/dL Albumin 3.3 L (3.5-5.0) g/dL Trazodone >5000 H (500-1600) ng/mL Assessment and Plan Plan: Impression: #1 Intentional overdose of 40 tablets of trazodone with positive drug screen for benzodiazepines opiates and cocaine and marijuana. Initially monitored in the intensive care unit. Currently out on the regular medical floor. #2 History of polysubstance abuse. #3 Schizophrenic disorder. #4 Bipolar disorder. #5 Mild intermittent asthma, currently inactive and stable. #6 Gastroesophageal reflux disease. #7 Chronic tobacco dependence. Plan: The patient is cleared for discharge from the pulmonary and critical care standpoint. The plan is for transfer to the inpatient psychiatric unit. We'll see the patient on as-needed basis.
[2017-03-01 23:16] VITALS: BP 122/67; PULSE 87; RESP 17; TEMP 98.7
== END 2017-03-02 01:38 | DRG 918 ==
LOC: EC 17:58 → 6ICU 20:30 → 3SUR 02-28 15:01
PROVIDERS: ADMIT Internal Medicine; ATTEND Internal Medicine
DX: T43.212A Poisoning by selective serotonin and norepinephrine reuptake inhibitors, intentional self-harm, initial encounter (principal); E83.39 Other disorders of phosphorus metabolism; F25.0 Schizoaffective disorder, bipolar type; E87.6 Hypokalemia; I45.81 Long QT syndrome; F17.200 Nicotine dependence, unspecified, uncomplicated; J45.20 Mild intermittent asthma, uncomplicated; K21.9 Gastro-esophageal reflux disease without esophagitis; F12.10 Cannabis abuse, uncomplicated; F14.10 Cocaine abuse, uncomplicated; Z90.710 Acquired absence of both cervix and uterus; Z79.899 Other long term (current) drug therapy; Y92.019 Unspecified place in single-family (private) house as the place of occurrence of the external cause
CPT/HCPCS: 36415; 71010; 80053; 80299; 80306; 80320; 81025; 82550; 82553; 83520; 83735; 84100; 84132; 85025; 93005

== ENCOUNTER 2017-03-02 01:40 | Inpatient (IN) | payer MEDICARE, MEDICAID ==
[2017-03-02] MEDS ORDERED: ACETAMINOPHEN TAB 325 MG TAB PO PRN (02:44)
[2017-03-02] MEDS ORDERED: MAGNESIUM HYDROXIDE 2,400 MG/10 ML CUP PO PRN (02:44)
[2017-03-02] MEDS ORDERED: ARIPiprazole 15 MG TAB PO SCH (09:00)
[2017-03-02 09:12] LABS: Basophils % (A) 0 %; CH 31.7; CHCM 33.1; Eosinophils # (A) 0.2 k/uL (0-0.7); Eosinophils % (A) 2 %; HCT 36.7 % (34.0-46.0); HDW 2.46; HGB 11.9 gm/dL (11.4-16.0); Luc % (Auto) 1; Lymphocytes # (A) 2.1 k/uL (1.0-4.8); Lymphocytes % (A) 29 %; MCH 31.1 pg (25.0-35.0); MCHC 32.3 g/dL (31.0-37.0); MCV 96.3 fL (80.0-100.0); Mean Platelet Volume 8.1; Monocytes # (A) 0.3 k/uL (0-1.0); Monocytes % (A) 4 %; Neutrophils # (A) 4.6 k/uL (1.3-7.7); Neutrophils % (A) 64 %; RBC 3.82 m/uL (3.80-5.40); RDW 14.3 % (11.5-15.5); WBC 7.2 k/uL (3.8-10.6); WBC (Perox) 7.29
[2017-03-02 09:42] LABS: ALT 23 U/L (9-52); AST 18 U/L (14-36); Alkaline Phosphatase 58 U/L (38-126); Anion Gap 7 mmol/L; Blood Urea Nitrogen 8 mg/dL (7-17); Calcium 9.2 mg/dL (8.4-10.2); Carbon Dioxide 21 mmol/L (22-30); Chloride 113 mmol/L (98-107); Glucose 116 mg/dL (74-99); Non-African American GFR(MDRD) >60 (>60 ml/min/1.73 sqM); Potassium 3.7 mmol/L (3.5-5.1); Sodium 141 mmol/L (137-145); Total Bilirubin 0.7 mg/dL (0.2-1.3); Total Protein 6.5 g/dL (6.3-8.2)
[2017-03-02] MEDS: busPIRone HCl 5 MG TAB PO SCH ×3 (09:52→21:42)
[2017-03-02] MEDS: CITALOPRAM HYDROBROMIDE 20 MG TAB PO SCH (09:52)
[2017-03-02] MEDS ORDERED: fluPHENAZine DECANOATE 25 MG/ML 5ML MDV IM ONE (11:39)
[2017-03-02] MEDS: NICOTINE 14MG/24HR PATCH TRANSDERM SCH (11:43)
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
[2017-03-02] MEDS: ALBUTEROL INHALER 60 PUFF/8 GM INHALER INHALATION PRN (19:50)
[2017-03-03] MEDS: CITALOPRAM HYDROBROMIDE 20 MG TAB PO SCH (08:53)
[2017-03-03] MEDS: busPIRone HCl 5 MG TAB PO SCH ×3 (08:53→20:33)
[2017-03-03] MEDS: NICOTINE 14MG/24HR PATCH TRANSDERM SCH (08:53)
[2017-03-03] MEDS: ALBUTEROL INHALER 60 PUFF/8 GM INHALER INHALATION PRN ×2 (09:36→21:23)
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
--- NOTE | 2017-03-03 15:54 | P.CONS ---
History of Present Illness - Reason for Consult Consult date: 03/03/17 Medical management - Chief Complaint Major depressive disorder - History of Present Illness This is a 36-year-old female with past medical history noted below significant for schizoaffective disorder who is currently admitted to the psychiatry unit for further evaluation. Patient was recently discharged from the hospital after being admitted to the ICU when she presented with an episode of unresponsiveness and medication overdose. Patient was optimized and eventually was discharged in a stable condition to the psych unit. She is awake and alert today. She was sleepy when I saw her but very easily arousable. She was answering my questions appropriately. She does not have any specific concerns or complaints. I was asked to see her for medical management. Review of Systems Review of system: 14 points review of systems were obtained and were negative except to what were mentioned in the HPI. Past Medical History Past Medical History: Asthma, GERD/Reflux History of Any Multi-Drug Resistant Organisms: None Reported Past Surgical History: Hysterectomy, Orthopedic Surgery Additional Past Surgical History / Comment(s): Partial hysterectomy possible. Unknown surgery dates. Right foot surgery. Birthmark Removal. Right shoulder surgery Past Anesthesia/Blood Transfusion Reactions: No Reported Reaction Smoking Status: Current every day smoker - Past Family History Mother Family Medical History: Diabetes Mellitus, Hypertension Medications and Allergies Home Medications Medication Instructions Recorded Confirmed Type Omeprazole [PriLOSEC] 20 mg PO AC-BID 12/14/13 03/02/17 History ARIPiprazole [Abilify] 15 mg PO DAILY 02/27/17 03/02/17 History Albuterol Sulfate [Proair Hfa] 2 puff INHALATION RT-Q6H PRN 02/27/17 03/02/17 History Citalopram Hydrobromide [CeleXA] 40 mg PO DAILY 02/27/17 03/02/17 History Ibuprofen [Motrin] 800 mg PO TID PRN 02/27/17 03/02/17 History Oxybutynin Chloride [Ditropan] 5 mg PO HS 02/27/17 03/02/17 History Ranitidine HCl [Zantac] 150 mg PO BID 02/27/17 03/02/17 History Trihexyphenidyl HCl 5 mg PO BID 02/27/17 03/02/17 History busPIRone HCL 15 mg PO TID 02/27/17 03/02/17 History fluPHENAZine DECANOATE [Prolixin 50 mg IM MO 02/27/17 03/02/17 History Decanoate] traZODone HCL 300 mg PO HS 02/27/17 03/02/17 History Allergies Allergy/AdvReac Type Severity Reaction Status Date / Time No Known Allergies Allergy Verified 03/02/17 02:15 Physical Exam Vitals: Vital Signs Temp Pulse Resp BP 03/03/17 06:44 98.4 F 76 16 126/80 General: The patient is awake and alert, in no distress Eye: there is normal conjunctiva bilaterally. Neck: The neck is supple, there is no JVD. Cardiovascular: Normal S1-S2, no S3-S4, no murmurs. Respiratory: Lungs clear to auscultation bilaterally Gastrointestinal: Abdomen is soft, nontender Musculoskeletal: There is no pedal edema. Neurological:. Speech is normal. Skin: Skin is warm and dry Results CBC & Chem 7: 03/02/17 08:40 03/02/17 08:40 Assessment and Plan Plan: 1. Major depressive disorder with recent suicide attempt 2. Schizoaffective disorder 3. Underlying asthma, mild intermittent, with no evidence of exacerbation 4. Obesity Today, I reviewed her medication list and lab work results. Continue current regimen. I will continue to follow-up on her on an as-needed basis. Thank you very much for the consultation.
[2017-03-03] MEDS: MAG HYDROX/AL HYDROX/SIMETH 30 ML CUP PO PRN ×2 (20:33→23:45)
[2017-03-04] MEDS: LORazepam 1 MG TAB PO PRN ×2 (00:23→20:42)
[2017-03-04] MEDS: MAG HYDROX/AL HYDROX/SIMETH 30 ML CUP PO PRN ×2 (08:15→20:08)
[2017-03-04] MEDS: NICOTINE 14MG/24HR PATCH TRANSDERM SCH (08:15)
[2017-03-04] MEDS: CITALOPRAM HYDROBROMIDE 20 MG TAB PO SCH (08:16)
[2017-03-04] MEDS: busPIRone HCl 5 MG TAB PO SCH ×3 (08:16→20:42)
[2017-03-04] MEDS: ALBUTEROL INHALER 60 PUFF/8 GM INHALER INHALATION PRN ×2 (09:54→13:20)
--- NOTE | 2017-03-04 13:12 | P.PN ---
Progress Note - Text Interval History: Patient is a 36-year-old female who is admitted voluntarily after she took an overdose of trazodone. Patient was continued on her current medications of Celexa 40 mg a day, BuSpar 15 mg 3 times a day, Artane 5 mg twice a day and she received Prolixin Decanoate at 50 mg on March 02. Patient is being seen in coverage for Dr. Guadarrama and she reports that she is doing well today. She reports last evening she couldn't sleep and requested Ativan with good results. She states that she is attending groups and reports no current auditory or visual hallucinations. She denied any paranoid ideation. She states she is not having any side effects from the medication. Patient had no other concerns at this time. Mental Status: Appearance/Attitude: Patient was neatly dressed and groomed, she made good eye contact and she was cooperative. Behavior: She exhibited no psychomotor agitation or retardation. Speech/Language: Speech was spontaneous and was of normal volume and rhythm. Thought Process: Patient was goal-directed and coherent and there is no evidence of any circumstantial or tangential thought. Thought Content: Patient reported that she is not currently having any auditory or visual hallucinations and denied any current paranoid ideation or other delusional ideation. Patient reports she states she had trouble sleeping last evening and requested Ativan with good results and her appetite is good. Suicidal/Homicidal Ideation: She denied any current suicidal or homicidal ideation. Sensorium/Cognition: She was alert and oriented to person, place, and time and her memory was grossly intact. Mood/Affect: Patient reports that she is not feeling depressed, was not agitated during the interview and her affect was appropriate. Insight/Judgement: Patient's insight and judgement are fair. Assessment: Patient reports feeling more stable, no evidence of agitation during the interview and no pressured speech, she is attending groups and reports no side effects from her medication. She denied any suicidal ideation and no psychotic symptoms were elicited or voiced by the patient. Plan: Patient will continue on her current medications of Celexa 40mg daily to target her mood, Buspar 15mg three times a day to target anxiety and Artane 5mg twice a day to target side effects, patient received Prolixin Decanoate 50mg on 03/02 to target her psychotic symptoms. Patient was encouraged to continue in groups.
[2017-03-04] MEDS: TRIHEXYPHENIDYL 2 MG TAB PO SCH (20:07)
[2017-03-04 21:07] VITALS: BMI 34.4
[2017-03-05 06:39] VITALS: BP 114/76; PULSE 62; RESP 12; TEMP 98.1
[2017-03-05] MEDS: busPIRone HCl 5 MG TAB PO SCH (08:32)
[2017-03-05] MEDS: TRIHEXYPHENIDYL 2 MG TAB PO SCH (08:32)
[2017-03-05] MEDS: CITALOPRAM HYDROBROMIDE 20 MG TAB PO SCH (08:32)
[2017-03-05] MEDS: NICOTINE 14MG/24HR PATCH TRANSDERM SCH (08:33)
--- NOTE | 2017-03-05 10:27 | P.DS ---
Providers Date of admission: 03/02/17 01:40 Expected date of discharge: 03/05/17 Attending physician: Srikanth Guadarrama Consults: 03/03/17 08:46 Consult Physician Routine Consulting Provider: Abida Lentz Consult Reason/Comments: history and physical Do you want consulting provider notified?: Yes Primary care physician: Stated None - Discharge Diagnosis(es) (1) Bipolar 1 disorder, depressed, severe Current Visit: Yes Status: Acute Priority: High (2) Cannabis use disorder, mild, abuse Current Visit: Yes Status: Acute Priority: Medium Hospital Course: Brief summary of admission note: This patient is a 36-year-old - Slov[place] female who presented to the hospital after overdosing with 40 trazodone tablets. She was medically admitted and then subsequently admitted to the mental health unit for psychiatric stabilization. The overdose occurred while she was at home after taking the medication she told her who called 911. The patient had reported being overwhelmed by derogatory hallucinations. She reported feeling depressed or tearful appetite low and feeling tired. For full details please refer to my psychiatric evaluation dictated 03/02/2017. Summary of hospital course: The patient was admitted to the mental health unit voluntarily. We reviewed her presenting symptoms recent treatment and medication options. It seemed that she was just recently started on Prolixin decanoate and was due to receive her second injection. We decided to continue that her Celexa BuSpar and Artane. The patient was agreeable to this plan. The first day on the unit she slept and did not participate in groups but when she felt more rested she did engage in the milieu. Sleep has been adequate each night appetite stable. She has been in verbal contact with her . Apparently her was unable to attend a support meeting in person so it was facilitated by social work via phone. The patient did express some interest in using benzodiazepines however we felt that was inappropriate and she will not be prescribed those as an outpatient. She does use marijuana on a regular basis we discussed her use of alcohol. She does not wish to participate in inpatient chemical dependency treatment but feels she can address this further on an outpatient basis. Mental status exam: The patient is an Afro-[place]ov[place] female appearing her stated age she is dressed in her own clothing. She reports her moods improved she spontaneously reports future oriented goals of returning to work and continuing with outpatient mental health services. She is reporting no acute suicidal or homicidal ideation intent or plan. She endorses ongoing auditory hallucinations but states "they are in a fog" meaning she can distract herself from them more easily. She reports feeling safe. Insight and judgment improving. She demonstrates no verbal or physical aggressiveness. He is easily directable during the session. There is no evidence of abnormal involuntary movements. The patient's affect is appropriately expresses. Impressions 1. Bipolar 1 disorder most recent depressed severe with psychosis, rule out schizoaffective disorder, cannabis use disorder, rule out alcohol use disorder 2. Borderline personality disorder traits 3. History of asthma, GERD, history of foot and shoulder surgery Plan: The patient is being discharged from the mental health unit today to return home. Social work will arrange for outpatient follow-up with [facility]. The patient is not interested in inpatient chemical dependent treatment but will address these issues further as an outpatient with [facility]. She has received her second dose of Prolixin decanoate 50 mg she will continue on Celexa 40 mg daily BuSpar 15 mg 3 times daily Artane 5 mg twice daily. The Prolixin has been given on a weekly basis after 2 injections I will defer continue prescribing to her outpatient clinician as this could be a therapeutic dose already. Clearly her personality disorder traits have an impact on her presentation and ability to cope with stressors. There is no imminent safety risks she is appropriate for continued care as an outpatient. She verbalizes a willingness to discontinue use of alcohol although she is resistant to the idea of stopping are 10. She is encouraged not to use benzodiazepines. Patient Condition at Discharge: Stable Plan - Discharge Summary New Discharge Prescriptions: New Nicotine 14Mg/24Hr Patch [Habitrol] 1 patch TRANSDERM DAILY #30 patch Continue Omeprazole [PriLOSEC] 20 mg PO AC-BID Ibuprofen [Motrin] 800 mg PO TID PRN PRN Reason: Pain Ranitidine HCl [Zantac] 150 mg PO BID Oxybutynin Chloride [Ditropan] 5 mg PO HS Albuterol Sulfate [Proair Hfa] 2 puff INHALATION RT-Q6H PRN PRN Reason: Shortness Of Breath fluPHENAZine DECANOATE [Prolixin Decanoate] 50 mg IM MO busPIRone HCL 15 mg PO TID #45 Citalopram Hydrobromide [CeleXA] 40 mg PO DAILY #30 Trihexyphenidyl HCl 5 mg PO BID #60 Discontinued traZODone HCL 300 mg PO HS ARIPiprazole [Abilify] 15 mg PO DAILY Discharge Medication List Omeprazole [PriLOSEC] 20 mg PO AC-BID 12/14/13 [History] Albuterol Sulfate [Proair Hfa] 2 puff INHALATION RT-Q6H PRN 02/27/17 [History] Ibuprofen [Motrin] 800 mg PO TID PRN 02/27/17 [History] Oxybutynin Chloride [Ditropan] 5 mg PO HS 02/27/17 [History] Ranitidine HCl [Zantac] 150 mg PO BID 02/27/17 [History] fluPHENAZine DECANOATE [Prolixin Decanoate] 50 mg IM MO 02/27/17 [History] Citalopram Hydrobromide [CeleXA] 40 mg PO DAILY #30 03/05/17 [Rx] Nicotine 14Mg/24Hr Patch [Habitrol] 1 patch TRANSDERM DAILY #30 patch 03/05/17 [ Rx] Trihexyphenidyl HCl 5 mg PO BID #60 03/05/17 [Rx] busPIRone HCL 15 mg PO TID #45 03/05/17 [Rx] Follow up Appointment(s)/Referral(s): [facility] [Outside] - 03/09/17 1:00 pm (03/09 @ 1300 with Gareth 03/16 @ 1400 with Naima 03/22 @ [address] Mcmanus) Patient Instructions/Handouts: How to Stop Smoking (DC), Bipolar Disorder (DC) , Depression (DC) Activity/Diet/Wound Care/Special Instructions: Take medication as prescribed. Do not use alcohol or street drugs. Return to the Emergency Room if needed. Crisis line [phone]
[2017-03-05] MEDS: ALBUTEROL INHALER 60 PUFF/8 GM INHALER INHALATION PRN (11:34)
== END 2017-03-05 12:57 | disposition home or self-care (01) | DRG 885 ==
LOC: 3MHU 01:40
PROVIDERS: ADMIT Psychiatry & Neurology Psychiatry; ATTEND Psychiatry & Neurology Psychiatry
DX: F31.5 Bipolar disorder, current episode depressed, severe, with psychotic features (principal); F25.9 Schizoaffective disorder, unspecified; F17.200 Nicotine dependence, unspecified, uncomplicated; F12.10 Cannabis abuse, uncomplicated; F60.3 Borderline personality disorder; F60.9 Personality disorder, unspecified; J45.909 Unspecified asthma, uncomplicated; K21.9 Gastro-esophageal reflux disease without esophagitis; Z83.3 Family history of diabetes mellitus; Z82.49 Family history of ischemic heart disease and other diseases of the circulatory system; Z79.899 Other long term (current) drug therapy; Z91.5 Personal history of self-harm
CPT/HCPCS: 80053; 84443; 85025; 94640

== ENCOUNTER 2018-06-29 22:27 | Emergency (ER) | payer MEDICARE, OTHER ==
[2018-06-29] MEDS ORDERED: SODIUM CHLORIDE 0.9% 1,000 ML IV STA (22:37)
[2018-06-29 22:51] VITALS: TEMP 98.3
--- NOTE | 2018-06-29 23:11 | ED ---
General Adult HPI - General Chief complaint: Psychiatric Symptoms Stated complaint: Overdose Time Seen by Provider: 06/29/18 22:30 Source: patient Mode of arrival: ambulatory Limitations: no limitations - History of Present Illness Initial comments: 38-year-old female patient presents to the emergency department today for evaluation after taking excessive medication. The patient states that she wanted to get sleep tonight so she took additional tablets of her BuSpar and trazodone totaling 12 tablets between the 2 medications. Patient states these are medications prescribed to her. She denies any suicidal ideation. States that she has been depressed lately because of some marital issues with her and just wanted to get some sleep tonight. She denies any other injuries. She states that she has attempted suicide in the past but again repeats that she has not suicidal today. Denies any alcohol use. Denies any hallucinations. States that she is currently feeling well and has no physical complaints. Patient denies any recent rash, fever, chills, shortness breath, chest pain, abdominal pain, nausea, vomiting, diarrhea, constipation, back pain, numbness, tingling, dizziness, weakness, hematuria, dysuria, urinary urgency, urinary frequency, headache, visual changes, or any other complaints. - Related Data Home Medications Medication Instructions Recorded Confirmed Omeprazole [PriLOSEC] 20 mg PO AC-BID 12/14/13 06/29/18 Albuterol Sulfate [Proair Hfa] 2 puff INHALATION RT-Q6H PRN 02/27/17 06/29/18 Ibuprofen [Motrin] 800 mg PO TID PRN 02/27/17 06/29/18 Ranitidine HCl [Zantac] 150 mg PO BID 02/27/17 06/29/18 ARIPiprazole [Abilify Maintena] 400 mg IM Q28D 06/29/18 06/29/18 Baclofen [Lioresal] 20 mg PO HS 06/29/18 06/29/18 Benztropine Mesylate [Cogentin] 1 mg PO BID 06/29/18 06/29/18 Ergocalciferol (Vitamin D2) 50,000 unit PO Q30D 06/29/18 06/29/18 [Vitamin D2] Naproxen 500 mg PO BID PRN 06/29/18 06/29/18 Oxybutynin Xl [Ditropan Xl] 5 mg PO HS 06/29/18 06/29/18 busPIRone HCL [Buspar] 30 mg PO BID 06/29/18 06/29/18 traZODone HCL 300 mg PO HS 06/29/18 06/29/18 Previous Rx's Medication Instructions Recorded Citalopram Hydrobromide [CeleXA] 40 mg PO DAILY #30 03/05/17 Allergies Allergy/AdvReac Type Severity Reaction Status Date / Time No Known Allergies Allergy Verified 06/29/18 23:50 Review of Systems ROS Statement: Those systems with pertinent positive or pertinent negative responses have been documented in the HPI. ROS Other: All systems not noted in ROS Statement are negative. Past Medical History Past Medical History: Asthma, GERD/Reflux History of Any Multi-Drug Resistant Organisms: None Reported Past Surgical History: Hysterectomy, Orthopedic Surgery Additional Past Surgical History / Comment(s): Partial hysterectomy possible. Unknown surgery dates. Right foot surgery. Birthmark Removal. Right shoulder surgery Past Anesthesia/Blood Transfusion Reactions: No Reported Reaction Past Psychological History: Anxiety, Bipolar, Depression, Schizoaffective Disorder Smoking Status: Current every day smoker Past Alcohol Use History: Daily Past Drug Use History: Cocaine, Marijuana, Prescription Drug Abuse - Past Family History Mother Family Medical History: Diabetes Mellitus, Hypertension General Exam Limitations: no limitations General appearance: alert, in no apparent distress, other (This is a well- developed, well-nourished adult female patient in no acute distress. Vital signs upon presentation are temperature 98.3F, pulse 64, respirations 15, blood pressure 117/62, pulse ox 100% on room air.) Eye exam: Present: normal appearance, PERRL, EOMI. Absent: scleral icterus, conjunctival injection, periorbital swelling ENT exam: Present: normal exam, normal oropharynx, mucous membranes moist Respiratory exam: Present: normal lung sounds bilaterally. Absent: respiratory distress, wheezes, rales, rhonchi, stridor Cardiovascular Exam: Present: regular rate, normal rhythm, normal heart sounds. Absent: systolic murmur, diastolic murmur, rubs, gallop, clicks GI/Abdominal exam: Present: soft, normal bowel sounds. Absent: distended, tenderness, guarding, rebound, rigid Neurological exam: Present: alert, oriented X3, CN II-XII intact Psychiatric exam: Present: normal affect, normal mood Skin exam: Present: warm, dry, intact, normal color. Absent: rash Course Vital Signs 06/29/18 06/29/18 06/29/18 22:44 23:14 23:18 Temperature 98.3 F Pulse Rate 64 59 L 57 L Respiratory 15 16 20 Rate Blood Pressure 117/62 116/83 116/83 O2 Sat by Pulse 100 100 98 Oximetry 06/29/18 06/29/18 06/30/18 23:40 23:42 01:00 Temperature Pulse Rate 59 L 56 L 61 Respiratory 16 12 14 Rate Blood Pressure 118/71 118/71 129/82 O2 Sat by Pulse 99 99 Oximetry 06/30/18 06/30/18 06/30/18 01:30 01:45 02:00 Temperature Pulse Rate 58 L 57 L 58 L Respiratory 19 22 20 Rate Blood Pressure 102/56 102/56 102/56 O2 Sat by Pulse 97 97 Oximetry 06/30/18 06/30/18 02:30 03:15 Temperature Pulse Rate 62 70 Respiratory 17 12 Rate Blood Pressure 103/44 120/79 O2 Sat by Pulse 100 99 Oximetry Medical Decision Making - Medical Decision Making 38-year-old female patient presents to emergency department today for evaluation after intentionally taking more of her BuSpar and trazodone medications been directed. Patient states took these and attempt only to get a good night sleep. She denies suicidal or homicidal ideation. Patient was monitored here until 3 AM, she had no adverse effects or symptoms related to this overdose. EKG showed sinus bradycardia. Labs reviewed and were unremarkable. Patient did have emergency psychiatric services evaluation, and is felt that she is safe for discharge home. She is instructed to follow-up with her primary care physician. She was instructed to only take medications as prescribed and the risks of taking excess medications was relayed. Return parameters discussed in detail. She verbalizes understanding and agrees with this plan. - Lab Data Result diagrams: 06/29/18 23:21 06/29/18 23:21 Lab Results 06/29/18 06/29/18 06/30/18 Range/Units 23:21 23:21 00:58 WBC 5.7 (3.8-10.6) k/uL RBC 3.89 (3.80-5.40) m/uL Hgb 11.7 (11.4-16.0) gm/dL Hct 35.7 (34.0-46.0) % MCV 91.8 (80.0-100.0) fL MCH 30.2 (25.0-35.0) pg MCHC 32.9 (31.0-37.0) g/dL RDW 15.5 (11.5-15.5) % Plt Count 277 (150-450) k/uL Neutrophils % 58 % Lymphocytes % 32 % Monocytes % 5 % Eosinophils % 2 % Basophils % 1 % Neutrophils # 3.3 (1.3-7.7) k/uL Lymphocytes # 1.8 (1.0-4.8) k/uL Monocytes # 0.3 (0-1.0) k/uL Eosinophils # 0.1 (0-0.7) k/uL Basophils # 0.0 (0-0.2) k/uL Sodium 141 (137-145) mmol/L Potassium 3.7 (3.5-5.1) mmol/L Chloride 115 H (98-107) mmol/L Carbon Dioxide 20 L (22-30) mmol/L Anion Gap 6 mmol/L BUN 13 (7-17) mg/dL Creatinine 0.71 (0.52-1.04) mg/dL Est GFR (CKD-EPI)AfAm >90 (>60 ml/min/1.73 sqM) Est GFR (CKD-EPI)NonAf >90 (>60 ml/min/1.73 sqM) Glucose 104 H (74-99) mg/dL Calcium 10.1 (8.4-10.2) mg/dL Total Bilirubin 0.7 (0.2-1.3) mg/dL AST 24 (14-36) U/L ALT 14 (9-52) U/L Alkaline Phosphatase 55 (38-126) U/L Total Protein 6.6 (6.3-8.2) g/dL Albumin 3.9 (3.5-5.0) g/dL Urine HCG, Qual (Not Detectd) Salicylates <1.0 mg/dL Urine Opiates Screen Not Detected (NotDetected) Ur Oxycodone Screen Not Detected (NotDetected) Urine Methadone Screen Not Detected (NotDetected) Ur Propoxyphene Screen Not Detected (NotDetected) Acetaminophen <10.0 ug/mL Ur Barbiturates Screen Not Detected (NotDetected) U Tricyclic Antidepress Not Detected (NotDetected) Ur Phencyclidine Scrn Not Detected (NotDetected) Ur Amphetamines Screen Not Detected (NotDetected) U Methamphetamines Scrn Not Detected (NotDetected) U Benzodiazepines Scrn Not Detected (NotDetected) Urine Cocaine Screen Not Detected (NotDetected) U Marijuana (THC) Screen Detected H (NotDetected) Serum Alcohol <10 mg/dL 06/30/18 Range/Units 00:58 WBC (3.8-10.6) k/uL RBC (3.80-5.40) m/uL Hgb (11.4-16.0) gm/dL Hct (34.0-46.0) % MCV (80.0-100.0) fL MCH (25.0-35.0) pg MCHC (31.0-37.0) g/dL RDW (11.5-15.5) % Plt Count (150-450) k/uL Neutrophils % % Lymphocytes % % Monocytes % % Eosinophils % % Basophils % % Neutrophils # (1.3-7.7) k/uL Lymphocytes # (1.0-4.8) k/uL Monocytes # (0-1.0) k/uL Eosinophils # (0-0.7) k/uL Basophils # (0-0.2) k/uL Sodium (137-145) mmol/L Potassium (3.5-5.1) mmol/L Chloride (98-107) mmol/L Carbon Dioxide (22-30) mmol/L Anion Gap mmol/L BUN (7-17) mg/dL Creatinine (0.52-1.04) mg/dL Est GFR (CKD-EPI)AfAm (>60 ml/min/1.73 sqM) Est GFR (CKD-EPI)NonAf (>60 ml/min/1.73 sqM) Glucose (74-99) mg/dL Calcium (8.4-10.2) mg/dL Total Bilirubin (0.2-1.3) mg/dL AST (14-36) U/L ALT (9-52) U/L Alkaline Phosphatase (38-126) U/L Total Protein (6.3-8.2) g/dL Albumin (3.5-5.0) g/dL Urine HCG, Qual Not Detected (Not Detectd) Salicylates mg/dL Urine Opiates Screen (NotDetected) Ur Oxycodone Screen (NotDetected) Urine Methadone Screen (NotDetected) Ur Propoxyphene Screen (NotDetected) Acetaminophen ug/mL Ur Barbiturates Screen (NotDetected) U Tricyclic Antidepress (NotDetected) Ur Phencyclidine Scrn (NotDetected) Ur Amphetamines Screen (NotDetected) U Methamphetamines Scrn (NotDetected) U Benzodiazepines Scrn (NotDetected) Urine Cocaine Screen (NotDetected) U Marijuana (THC) Screen (NotDetected) Serum Alcohol mg/dL - EKG Data -: EKG Interpreted by Me EKG Comments: EKG obtained at 2335 shows sinus bradycardia with a ventricular rate of 57, TN interval 138, QRS duration 84, QT 486, QTc 473. No evidence of ST elevation or depression Disposition Clinical Impression: Overdose Disposition: HOME SELF-CARE Condition: Good Instructions: Adult Overdose (ED) Additional Instructions: Take medications only as directed. Follow-up with your primary care physician for recheck in 1-2 days. Return immediately for any new, worsening, or concerning symptoms. Is patient prescribed a controlled substance at d/c from ED?: No Referrals: Cleo Dixon DO [Primary Care Provider] - 1-2 days
[2018-06-30 01:19] LABS: Basophils % (A) 1 %; Eosinophils # (A) 0.1 k/uL (0-0.7); Eosinophils % (A) 2 %; HCT 35.7 % (34.0-46.0); HGB 11.7 gm/dL (11.4-16.0); Lymphocytes # (A) 1.8 k/uL (1.0-4.8); Lymphocytes % (A) 32 %; MCH 30.2 pg (25.0-35.0); MCHC 32.9 g/dL (31.0-37.0); MCV 91.8 fL (80.0-100.0); Mean Platelet Volume 8.3; Monocytes # (A) 0.3 k/uL (0-1.0); Monocytes % (A) 5 %; Neutrophils # (A) 3.3 k/uL (1.3-7.7); Neutrophils % (A) 58 %; Platelet Count 277 k/uL (150-450); RBC 3.89 m/uL (3.80-5.40); RDW 15.5 % (11.5-15.5); WBC 5.7 k/uL (3.8-10.6)
[2018-06-30 01:24] LABS: ALT 14 U/L (9-52); AST 24 U/L (14-36); Acetaminophen <10.0 ug/mL; Albumin 3.9 g/dL (3.5-5.0); Alcohol <10 mg/dL; Alkaline Phosphatase 55 U/L (38-126); Anion Gap 6 mmol/L; Blood Urea Nitrogen 13 mg/dL (7-17); Calcium 10.1 mg/dL (8.4-10.2); Carbon Dioxide 20 mmol/L (22-30); Chloride 115 mmol/L (98-107); Glucose 104 mg/dL (74-99); Potassium 3.7 mmol/L (3.5-5.1); Salicylate <1.0 mg/dL; Sodium 141 mmol/L (137-145); Total Bilirubin 0.7 mg/dL (0.2-1.3); Total Protein 6.6 g/dL (6.3-8.2)
[2018-06-30 01:31] LABS: Amphetamine Screen,Urine Not Detected (NotDetected); Barbiturate Screen,Urine Not Detected (NotDetected); Benzodiazepines Screen,Urine Not Detected (NotDetected); Cocaine Screen,Urine Not Detected (NotDetected); Methadone Screen, Urine Not Detected (NotDetected); Opiate Screen,Urine Not Detected (NotDetected); Oxycodone Screen, Urine Not Detected (NotDetected); Phencyclidine Screen,Urine Not Detected (NotDetected); Tricyclic Antidepressant,Urine Not Detected (NotDetected); Urn Cannabinoid Scrn Detected (NotDetected)
[2018-06-30 04:45] VITALS: BP 110/66; PULSE 59; RESP 20
== END 2018-06-30 04:50 | disposition home or self-care (01) ==
LOC: EC 22:27
DX: T43.591A Poisoning by other antipsychotics and neuroleptics, accidental (unintentional), initial encounter (principal); T43.211A Poisoning by selective serotonin and norepinephrine reuptake inhibitors, accidental (unintentional), initial encounter; R00.1 Bradycardia, unspecified; J45.909 Unspecified asthma, uncomplicated; K21.9 Gastro-esophageal reflux disease without esophagitis; F31.9 Bipolar disorder, unspecified; F25.9 Schizoaffective disorder, unspecified; F41.9 Anxiety disorder, unspecified; F17.200 Nicotine dependence, unspecified, uncomplicated; Z79.899 Other long term (current) drug therapy
CPT/HCPCS: 36415; 80053; 85025; 81025; 80306; 83520 ×2; 99284; 96360; G0480; 80320; 82075

== ENCOUNTER 2018-07-05 17:08 | Inpatient (IN) | payer MEDICARE, MEDICAID ==
--- NOTE | 2018-07-05 17:41 | ED ---
General Adult HPI - General Chief complaint: Psychiatric Symptoms Stated complaint: mental health Time Seen by Provider: 07/05/18 17:29 Source: patient, RN notes reviewed Mode of arrival: ambulatory Limitations: no limitations - History of Present Illness Initial comments: Patient is a pleasant 38-year-old female presenting to the emergency Department with her [facility] worker for hallucinations. Patient states she does have a history of hallucinations however this is worse than normal. Patient sees and hears people. Patient states they hit her and try to "get inside her "as she refers to them trying to get inside her genitalia. Patient yells and cries during this part of the evaluation. Patient states no current drug or alcohol use however does have a history. Patient denies any physical complaints at this time. Patient admits to having racing thoughts and difficulty concentrating. Patient has been on some of her medication recently. Patient took extra BuSpar over a week ago to try to help her sleep. No homicidal thoughts. No suicidal thoughts. - Related Data Home Medications Medication Instructions Recorded Confirmed Omeprazole [PriLOSEC] 20 mg PO AC-BID 12/14/13 07/05/18 Albuterol Sulfate [Proair Hfa] 2 puff INHALATION RT-Q6H PRN 02/27/17 07/05/18 Ibuprofen [Motrin] 800 mg PO TID PRN 02/27/17 07/05/18 Ranitidine HCl [Zantac] 150 mg PO BID 02/27/17 07/05/18 Baclofen [Lioresal] 20 mg PO HS 06/29/18 07/05/18 Benztropine Mesylate [Cogentin] 1 mg PO BID 06/29/18 07/05/18 Ergocalciferol (Vitamin D2) 50,000 unit PO Q30D 06/29/18 07/05/18 [Vitamin D2] Naproxen 500 mg PO BID PRN 06/29/18 07/05/18 Oxybutynin Xl [Ditropan Xl] 5 mg PO HS 06/29/18 07/05/18 busPIRone HCL [Buspar] 30 mg PO BID 06/29/18 07/05/18 Gabapentin 600 mg PO HS 07/05/18 07/05/18 Gabapentin [Neurontin] 300 mg PO QAM 07/05/18 07/05/18 QUEtiapine [SEROquel] 100 mg PO HS 07/05/18 07/05/18 Ziprasidone HCl [Geodon] 40 mg PO BID 07/05/18 07/05/18 Previous Rx's Medication Instructions Recorded Citalopram Hydrobromide [CeleXA] 40 mg PO DAILY #30 03/05/17 Allergies Allergy/AdvReac Type Severity Reaction Status Date / Time No Known Allergies Allergy Verified 07/05/18 18:17 Review of Systems ROS Statement: Those systems with pertinent positive or pertinent negative responses have been documented in the HPI. ROS Other: All systems not noted in ROS Statement are negative. Constitutional: Denies: fever Eyes: Denies: eye pain ENT: Denies: ear pain Respiratory: Denies: cough Cardiovascular: Denies: chest pain Endocrine: Denies: fatigue Gastrointestinal: Denies: abdominal pain Genitourinary: Denies: dysuria Musculoskeletal: Denies: back pain Skin: Denies: rash Neurological: Denies: weakness Psychiatric: Reports: anxiety, visual hallucinations, suicidal thoughts Past Medical History Past Medical History: Asthma, GERD/Reflux History of Any Multi-Drug Resistant Organisms: MRSA Date of last positivie culture/infection: 2014 MDRO Source:: finger Past Surgical History: Hysterectomy, Orthopedic Surgery Additional Past Surgical History / Comment(s): Partial hysterectomy possible. Unknown surgery dates. Right foot surgery. Birthmark Removal. Right shoulder surgery Past Anesthesia/Blood Transfusion Reactions: No Reported Reaction Past Psychological History: Anxiety, Bipolar, Depression, Schizoaffective Disorder Smoking Status: Current every day smoker Past Alcohol Use History: None Reported, Daily Past Drug Use History: None Reported, Cocaine, Marijuana, Prescription Drug Abuse - Past Family History Mother Family Medical History: Diabetes Mellitus, Hypertension General Exam Limitations: no limitations General appearance: alert, in no apparent distress Head exam: Present: atraumatic Eye exam: Present: normal appearance, PERRL ENT exam: Present: normal oropharynx Neck exam: Present: normal inspection Respiratory exam: Present: normal lung sounds bilaterally Cardiovascular Exam: Present: regular rate, normal rhythm GI/Abdominal exam: Present: soft. Absent: tenderness Extremities exam: Present: normal inspection Neurological exam: Present: alert Psychiatric exam: Present: anxious Expanded Focused psych exam: Present: flight of ideas Skin exam: Present: normal color Course Vital Signs 07/05/18 17:21 Temperature 98.7 F Pulse Rate 74 Respiratory 22 Rate Blood Pressure 142/84 O2 Sat by Pulse 100 Oximetry Medical Decision Making - Medical Decision Making Patient seen by mental health services, who will admit. - Lab Data Lab Results 07/05/18 Range/Units 17:48 Urine Opiates Screen Detected H (NotDetected) Ur Oxycodone Screen Not Detected (NotDetected) Urine Methadone Screen Not Detected (NotDetected) Ur Propoxyphene Screen Not Detected (NotDetected) Ur Barbiturates Screen Not Detected (NotDetected) U Tricyclic Antidepress Not Detected (NotDetected) Ur Phencyclidine Scrn Not Detected (NotDetected) Ur Amphetamines Screen Not Detected (NotDetected) U Methamphetamines Scrn Not Detected (NotDetected) U Benzodiazepines Scrn Not Detected (NotDetected) Urine Cocaine Screen Not Detected (NotDetected) U Marijuana (THC) Screen Detected H (NotDetected) Disposition Clinical Impression: Acute psychosis Disposition: TRANSFER TO PSYCH HOSP/UNIT Is patient prescribed a controlled substance at d/c from ED?: No Referrals: Cleo Dixon DO [Primary Care Provider] - 1-2 days Decision Time: 19:12
[2018-07-05 18:13] LABS: Amphetamine Screen,Urine Not Detected (NotDetected); Barbiturate Screen,Urine Not Detected (NotDetected); Benzodiazepines Screen,Urine Not Detected (NotDetected); Cocaine Screen,Urine Not Detected (NotDetected); Methadone Screen, Urine Not Detected (NotDetected); Opiate Screen,Urine Detected (NotDetected); Oxycodone Screen, Urine Not Detected (NotDetected); Phencyclidine Screen,Urine Not Detected (NotDetected); Tricyclic Antidepressant,Urine Not Detected (NotDetected); Urn Cannabinoid Scrn Detected (NotDetected)
[2018-07-05] MEDS ORDERED: ZIPRASIDONE 20 MG VIAL IM PRN (20:03)
[2018-07-05] MEDS ORDERED: ACETAMINOPHEN TAB 325 MG TAB PO PRN (20:03)
[2018-07-05] MEDS ORDERED: MAG HYDROX/AL HYDROX/SIMETH 30 ML CUP PO PRN (20:03)
[2018-07-05] MEDS ORDERED: MAGNESIUM HYDROXIDE 2,400 MG/10 ML CUP PO PRN (20:03)
[2018-07-05] MEDS ORDERED: LORazepam 2 MG/ML INJ IM PRN (20:11)
[2018-07-05 20:30] LABS: Appearance,Urine Clear (Clear); Bilirubin,Urine Negative (Negative); Blood,Urine Negative (Negative); Color,Urine Yellow; Glucose,Urine (UA) Negative (Negative); Hyaline Casts,Urine 6 /lpf (0-2); Ketones,Urine 2+ (Negative); Leukocyte Esterase,Urine Negative (Negative); Mucus,Urine Many /hpf; Nitrite,Urine Negative (Negative); PH, Urine 5.5 (5.0-8.0); Protein,Urine 1+ (Negative); RBC,Urine 4 /hpf (0-5); Specific Gravity,Urine 1.031 (1.001-1.035); Squamous Epithelial Cell,Urine 8 /hpf (0-4); WBC,Urine 2 /hpf (0-5)
[2018-07-05] MEDS: GABAPENTIN 300 MG CAP PO SCH (20:36)
[2018-07-05] MEDS: QUEtiapine 100 MG TAB PO SCH (20:36)
[2018-07-05] MEDS: BACLOFEN 10 MG TAB PO SCH (20:36)
[2018-07-05] MEDS: OXYBUTYNIN XL 5 MG TAB.ER.24 PO SCH (20:36)
[2018-07-06] MEDS: LORazepam 1 MG TAB PO PRN (06:13)
[2018-07-06] MEDS: NICOTINE 14MG/24HR PATCH TRANSDERM SCH (07:35)
[2018-07-06] MEDS: PANTOPRAZOLE 40 MG TABLET PO SCH (07:36)
[2018-07-06] MEDS: GABAPENTIN 300 MG CAP PO SCH ×2 (07:36→20:23)
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
[2018-07-06] MEDS: ZIPRASIDONE 40 MG CAP PO SCH ×2 (10:51→20:24)
[2018-07-06 11:17] LABS: Basophils % (A) 0 %; Eosinophils # (A) 0.1 k/uL (0-0.7); Eosinophils % (A) 2 %; HCT 38.2 % (34.0-46.0); HGB 12.2 gm/dL (11.4-16.0); Lymphocytes # (A) 2.3 k/uL (1.0-4.8); Lymphocytes % (A) 42 %; MCH 29.5 pg (25.0-35.0); MCHC 31.9 g/dL (31.0-37.0); MCV 92.5 fL (80.0-100.0); Mean Platelet Volume 7.9; Monocytes # (A) 0.3 k/uL (0-1.0); Monocytes % (A) 5 %; Neutrophils # (A) 2.6 k/uL (1.3-7.7); Neutrophils % (A) 48 %; Platelet Count 279 k/uL (150-450); RBC 4.13 m/uL (3.80-5.40); RDW 15.2 % (11.5-15.5); WBC 5.4 k/uL (3.8-10.6)
--- NOTE | 2018-07-06 11:17 | P.CONS ---
History of Present Illness - Reason for Consult Consult date: 07/06/18 Medical management Requesting physician: Srikanth Guadarrama - Chief Complaint psychosis - History of Present Illness This is a 38-year-old female patient of Dr. Dixon. Patient presented to the emergency room with complaints of psychosis and manic symptoms. Patient has known past medical history of schizoaffective disorder. Patient apparently went to outpatient psychiatrist's office where she was sent to the emergency room. Patient states she's been experiencing auditory hallucinations. Patient has known past medical history of asthma, GERD, hysterectomy, anxiety, bipolar, depression, nicotine dependence, cocaine, opiates, marijuana and EtOH use. During examination patient is currently very fidgety and in a manic state. Per nursing staff patient was running up and down the halls this a.m. at this time patient denies chest pain or shortness of breath. Urine drug screen showing positive for opiates and marijuana. Patient denies nausea vomiting or diarrhea. Patient denies any urinary burning or frequency Review of Systems Please refer to HPI otherwise unremarkable Past Medical History Past Medical History: Asthma, GERD/Reflux History of Any Multi-Drug Resistant Organisms: MRSA Year Discovered:: 2014 MDRO Source:: finger Past Surgical History: Hysterectomy, Orthopedic Surgery Additional Past Surgical History / Comment(s): Partial hysterectomy possible. Unknown surgery dates. Right foot surgery. Birthmark Removal. Right shoulder surgery Past Anesthesia/Blood Transfusion Reactions: No Reported Reaction Past Psychological History: Anxiety, Bipolar, Depression, Schizoaffective Disorder Smoking Status: Current every day smoker Past Alcohol Use History: None Reported, Daily Additional Past Alcohol Use History / Comment(s): Pt. states she drinks one or two beers a day. Past Drug Use History: None Reported, Cocaine, Marijuana, Prescription Drug Abuse Additional Drug Use History / Comment(s): Pt. states she abuses crack cocaine and states she takes "a hit" but won't state how often. Pt. denies using drugs "for 4 weeks." - Past Family History Mother Family Medical History: Diabetes Mellitus, Hypertension Medications and Allergies Home Medications Medication Instructions Recorded Confirmed Type Omeprazole [PriLOSEC] 20 mg PO AC-BID 12/14/13 07/05/18 History Albuterol Sulfate [Proair Hfa] 2 puff INHALATION RT-Q6H PRN 02/27/17 07/05/18 History Ibuprofen [Motrin] 800 mg PO TID PRN 02/27/17 07/05/18 History Ranitidine HCl [Zantac] 150 mg PO BID 02/27/17 07/05/18 History Citalopram Hydrobromide [CeleXA] 40 mg PO DAILY #30 03/05/17 07/05/18 Rx Baclofen [Lioresal] 20 mg PO HS 06/29/18 07/05/18 History Benztropine Mesylate [Cogentin] 1 mg PO BID 06/29/18 07/05/18 History Ergocalciferol (Vitamin D2) 50,000 unit PO Q30D 06/29/18 07/05/18 History [Vitamin D2] Naproxen 500 mg PO BID PRN 06/29/18 07/05/18 History Oxybutynin Xl [Ditropan Xl] 5 mg PO HS 06/29/18 07/05/18 History busPIRone HCL [Buspar] 30 mg PO BID 06/29/18 07/05/18 History Gabapentin 600 mg PO HS 07/05/18 07/05/18 History Gabapentin [Neurontin] 300 mg PO QAM 07/05/18 07/05/18 History QUEtiapine [SEROquel] 100 mg PO HS 07/05/18 07/05/18 History Ziprasidone HCl [Geodon] 40 mg PO BID 07/05/18 07/05/18 History Allergies Allergy/AdvReac Type Severity Reaction Status Date / Time No Known Allergies Allergy Verified 07/05/18 21:29 Physical Exam Vitals: Vital Signs Temp Pulse Pulse Resp BP BP Pulse Ox 07/06/18 06:12 127 H 20 140/78 07/05/18 21:26 98.6 F 76 20 137/84 07/05/18 19:40 97.8 F 76 16 140/78 98 07/05/18 17:21 98.7 F 74 22 142/84 100 Intake and Output 07/05/18 07/06/18 07/06/18 22:59 06:59 14:59 Other: Weight 91.626 kg Head normocephalic Neck supple Lungs clear to auscultation bilaterally no wheezing or crackles Heart regular rate and rhythm S1-S2, no rub or gallop Abdomen is soft nontender nondistended positive bowel sounds no hepatosplenomegaly Extremities no edema Neuro alert and orientated to 3. Patient appears very fidgety Results Labs: Abnormal Lab Results - Last 24 Hours (Table) 07/05/18 07/05/18 Range/Units 17:48 17:48 Urine Protein 1+ H (Negative) Urine Ketones 2+ H (Negative) Ur Squamous Epith Cells 8 H (0-4) /hpf Hyaline Casts 6 H (0-2) /lpf Urine Mucus Many H (None) /hpf Urine Opiates Screen Detected H (NotDetected) U Marijuana (THC) Screen Detected H (NotDetected) Assessment and Plan Assessment: 1. Psychosis and manic state with auditory hallucinations. Patient currently admitted to the mental health unit. 2. History history of schizoaffective disorder 3. History of EtOH 4. History of cocaine use. Patient states she hasnt taken drugs in 4 weeks 5. History of marijuana use 6. Nicotine dependence 7. History of GERD 8. History of asthma 9. Tachycardia. Likely related to Maniac state. per nursing staff patient was running up and down the halls. Ordered repeat vitals. CMP, CBC and thyroid levels ordered Acute for this consultation we'll continue to follow patient closely throughout stay
[2018-07-06 11:22] LABS: ALT 22 U/L (9-52); AST 22 U/L (14-36); Albumin 4.1 g/dL (3.5-5.0); Alkaline Phosphatase 53 U/L (38-126); Anion Gap 8 mmol/L; Blood Urea Nitrogen 16 mg/dL (7-17); Calcium 10.3 mg/dL (8.4-10.2); Carbon Dioxide 22 mmol/L (22-30); Chloride 110 mmol/L (98-107); Cholesterol 202 mg/dL (<200); Glucose 79 mg/dL (74-99); HDL Cholesterol 67 mg/dL (40-60); LDL Cholesterol,Calculated 125 mg/dL (0-99); Potassium 4.2 mmol/L (3.5-5.1); Sodium 140 mmol/L (137-145); Total Bilirubin 1.2 mg/dL (0.2-1.3); Total Protein 7.1 g/dL (6.3-8.2); Triglycerides 48 mg/dL (<150)
[2018-07-06] MEDS: ALBUTEROL INHALER 60 PUFF/8 GM INHALER INHALATION PRN ×2 (11:58→17:10)
[2018-07-06 18:14] LABS: Hemoglobin A1C 5.4 % (4.0-6.0)
[2018-07-06] MEDS: DIVALPROEX ER 500 MG TAB.ER.24H PO SCH (20:23)
[2018-07-06] MEDS: OXYBUTYNIN XL 5 MG TAB.ER.24 PO SCH (20:23)
[2018-07-06] MEDS: BACLOFEN 10 MG TAB PO SCH (20:23)
[2018-07-06] MEDS: QUEtiapine 100 MG TAB PO SCH (20:24)
[2018-07-07] MEDS: ZIPRASIDONE 40 MG CAP PO SCH ×2 (08:08→20:13)
[2018-07-07] MEDS: GABAPENTIN 300 MG CAP PO SCH ×2 (08:08→20:13)
[2018-07-07] MEDS: NICOTINE 14MG/24HR PATCH TRANSDERM SCH (08:08)
[2018-07-07] MEDS: PANTOPRAZOLE 40 MG TABLET PO SCH (08:08)
[2018-07-07] MEDS: ALBUTEROL INHALER 60 PUFF/8 GM INHALER INHALATION PRN (11:59)
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
[2018-07-07] MEDS: BACLOFEN 10 MG TAB PO SCH (20:13)
[2018-07-07] MEDS: OXYBUTYNIN XL 5 MG TAB.ER.24 PO SCH (20:13)
[2018-07-07] MEDS: DIVALPROEX ER 500 MG TAB.ER.24H PO SCH (20:13)
[2018-07-07] MEDS: BENZTROPINE MESYLATE 1 MG TAB PO SCH (20:13)
[2018-07-07] MEDS: QUEtiapine 100 MG TAB PO SCH (20:14)
[2018-07-08] MEDS: GABAPENTIN 300 MG CAP PO SCH ×2 (08:01→20:06)
[2018-07-08] MEDS: PANTOPRAZOLE 40 MG TABLET PO SCH (08:01)
[2018-07-08] MEDS: BENZTROPINE MESYLATE 1 MG TAB PO SCH ×2 (08:01→20:06)
[2018-07-08] MEDS: ZIPRASIDONE 40 MG CAP PO SCH (08:01)
[2018-07-08] MEDS: NICOTINE 14MG/24HR PATCH TRANSDERM SCH (08:01)
[2018-07-08] MEDS: IBUPROFEN 800 MG TAB PO PRN (11:36)
[2018-07-08] MEDS: ALBUTEROL INHALER 60 PUFF/8 GM INHALER INHALATION PRN (15:44)
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
[2018-07-08] MEDS: OXYBUTYNIN XL 5 MG TAB.ER.24 PO SCH (20:05)
[2018-07-08] MEDS: BACLOFEN 10 MG TAB PO SCH (20:06)
[2018-07-08] MEDS: QUEtiapine 100 MG TAB PO SCH (20:06)
[2018-07-08] MEDS: ZIPRASIDONE 60 MG CAP PO SCH (20:06)
[2018-07-08] MEDS: DIVALPROEX ER 500 MG TAB.ER.24H PO SCH (20:06)
[2018-07-09] MEDS: NICOTINE 14MG/24HR PATCH TRANSDERM SCH (08:37)
[2018-07-09] MEDS: BENZTROPINE MESYLATE 1 MG TAB PO SCH ×2 (08:37→20:09)
[2018-07-09] MEDS: GABAPENTIN 300 MG CAP PO SCH ×2 (08:37→20:09)
[2018-07-09] MEDS: ZIPRASIDONE 60 MG CAP PO SCH ×2 (08:37→20:08)
[2018-07-09] MEDS: PANTOPRAZOLE 40 MG TABLET PO SCH (08:38)
[2018-07-09] MEDS: ALBUTEROL INHALER 60 PUFF/8 GM INHALER INHALATION PRN (10:04)
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
[2018-07-09] MEDS: OXYBUTYNIN XL 5 MG TAB.ER.24 PO SCH (20:08)
[2018-07-09] MEDS: BACLOFEN 10 MG TAB PO SCH (20:09)
[2018-07-09] MEDS: QUEtiapine 100 MG TAB PO SCH (20:09)
[2018-07-09] MEDS: DIVALPROEX ER 500 MG TAB.ER.24H PO SCH (20:09)
[2018-07-09] MEDS: IBUPROFEN 800 MG TAB PO PRN (23:47)
[2018-07-10] MEDS: LORazepam 1 MG TAB PO PRN ×2 (01:19→20:12)
[2018-07-10] MEDS: NICOTINE 14MG/24HR PATCH TRANSDERM SCH (08:11)
[2018-07-10] MEDS: ZIPRASIDONE 60 MG CAP PO SCH ×2 (08:11→20:11)
[2018-07-10] MEDS: GABAPENTIN 300 MG CAP PO SCH ×2 (08:11→20:10)
[2018-07-10] MEDS: PANTOPRAZOLE 40 MG TABLET PO SCH (08:11)
[2018-07-10] MEDS: BENZTROPINE MESYLATE 1 MG TAB PO SCH ×2 (08:11→20:10)
[2018-07-10] MEDS: ALBUTEROL INHALER 60 PUFF/8 GM INHALER INHALATION PRN (12:56)
--- NOTE | 2018-07-10 18:21 | P.PN ---
Progress Note - Text Progress Note Date: 07/10/18 Patient seen and interviewed in detail. Found her in better mood. She likes increase dose of Geodon and it is helping with psychoses. Did sleep good last night. Reports some restlessness from medications. MENTAL STATUS EXAM: She is pleasant cooperative. She has spontaneous speech which is mildly pressured at times she is verbose but redirectable. Thought process is circumstantial tangential she demonstrates no flight of ideas. She does appear euthymic. She is not reporting auditory hallucinations. She is reporting no homicidal ideation intent or plan. She denies suicidal ideation. Insight and judgment are improving. STRENGTHS/WEAKNESSES: Strengths: Supportive home, housing, employment weaknesses : History of substance use, ongoing symptoms of psychosis and hypomania INTELLECTUAL FUNCTIONING: Average IMPRESSIONS: [] 1. Schizoaffective disorder bipolar type rule out bipolar 1 disorder with psychosis, history of alcohol use disorder cannabis use disorder cocaine use disorder 2. Cluster B traits 3. Asthma GERD history of surgery on 4 and shoulder Will continue to adjust medications accordingly
[2018-07-10] MEDS: OXYBUTYNIN XL 5 MG TAB.ER.24 PO SCH (20:10)
[2018-07-10] MEDS: QUEtiapine 100 MG TAB PO SCH (20:11)
[2018-07-10] MEDS: BACLOFEN 10 MG TAB PO SCH (20:11)
[2018-07-10] MEDS: DIVALPROEX ER 500 MG TAB.ER.24H PO SCH (20:11)
[2018-07-11] MEDS: NICOTINE 14MG/24HR PATCH TRANSDERM SCH (07:44)
[2018-07-11] MEDS: GABAPENTIN 300 MG CAP PO SCH ×2 (07:45→20:26)
[2018-07-11] MEDS: ZIPRASIDONE 60 MG CAP PO SCH ×2 (07:45→20:26)
[2018-07-11] MEDS: BENZTROPINE MESYLATE 1 MG TAB PO SCH ×2 (07:45→20:25)
[2018-07-11] MEDS: PANTOPRAZOLE 40 MG TABLET PO SCH (07:45)
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
[2018-07-11] MEDS: DIVALPROEX ER 500 MG TAB.ER.24H PO SCH (20:25)
[2018-07-11] MEDS: BACLOFEN 10 MG TAB PO SCH (20:25)
[2018-07-11] MEDS: OXYBUTYNIN XL 5 MG TAB.ER.24 PO SCH (20:26)
[2018-07-11] MEDS: QUEtiapine 100 MG TAB PO SCH (20:26)
[2018-07-12] MEDS: LORazepam 1 MG TAB PO PRN (00:11)
[2018-07-12 06:30] VITALS: BP 119/72; PULSE 110; RESP 18; TEMP 98.2
[2018-07-12] MEDS: ZIPRASIDONE 60 MG CAP PO SCH (08:36)
[2018-07-12] MEDS: GABAPENTIN 300 MG CAP PO SCH (08:36)
[2018-07-12] MEDS: BENZTROPINE MESYLATE 1 MG TAB PO SCH (08:36)
[2018-07-12] MEDS: NICOTINE 14MG/24HR PATCH TRANSDERM SCH (08:36)
[2018-07-12] MEDS: PANTOPRAZOLE 40 MG TABLET PO SCH (08:38)
--- NOTE | 2018-07-12 09:25 | P.DS ---
Providers Date of admission: 07/05/18 19:29 Expected date of discharge: 07/12/18 Attending physician: Srikanth Guadarrama Consults: 07/05/18 20:03 Consult Physician Routine Consulting Provider: Abida Lentz Consult Reason/Comments: H&P for mental health admission Do you want consulting provider notified?: Already Contacted Primary care physician: Cleo Dixon - Discharge Diagnosis(es) (1) Bipolar 1 disorder, depressed, severe Current Visit: No Status: Acute Priority: High (2) Alcohol use disorder Current Visit: Yes Status: Acute Priority: Medium (3) Cannabis use disorder, moderate, dependence Current Visit: Yes Status: Acute Priority: Medium (4) Cocaine use disorder Current Visit: Yes Status: Acute Priority: Medium Hospital Course: Brief summary of admission note: This patient is a 38-year-old - [place] female who presented to the mental health unit through the emergency room on a petition that she was having acute symptoms of psychosis and manic symptoms. The patient's had been sent from her outpatient psychiatrist's office. She indicated her sleep had been poor energy have been up and down she was experiencing derogatory auditory hallucinations sometimes commanding in nature. She states that she would follow their direction and strike herself in the head with her fist. She reported having suicidal thoughts as recently as the 13 of this month and had overdosed with 5 BuSpar and 7 trazodone. She has a history of overdoses in the past. She reported feeling hopeless. She endorsed irritability and disorganized thoughts. For full details please refer to my psychiatric evaluation dated 07/06/2018. Summary of hospital course: The patient was admitted to the mental health unit she did sign in voluntarily. We reviewed her presenting symptoms and treatment options. She had just seen her outpatient psychiatrist and was started on Geodon and Seroquel. Due to the symptoms of ashley we discontinued the BuSpar and Celexa at least temporarily. Depakote ER was initiated at 1000 mg at bedtime Geodon was titrated to 60 mg twice daily. Depakote level was drawn yesterday which was 73 liver enzyme numbers are within normal limits. The patient reported a progressive improvement of symptoms while here. She selectively attended groups. She demonstrated no agitated behavior. She was seen by internal medicine for routine history and physical exam. Social work met with the patient to complete a psychosocial assessment and to work on discharge planning. The patient feels that she is stabilized and is appropriate for discharge back home. She indicates that her is not able to attend a support meeting. Social work will contact her via phone if possible. Mental status exam: The patient's is a tall overweight -[place] female appearing her stated age. She has appropriate eye contact speech is fluent spontaneous nonpressured. She indicates her mood is better. Affect is euthymic. She reports no hopelessness thinking or any suicidal ideation intent or plan. She is reporting no homicidal ideation intent or plan. She describes no visual hallucinations. She states in terms of auditory hallucination she will hear laughter at times but no conversations and she is experiencing no command auditory hallucinations. She demonstrates no verbal or physical aggressiveness. She demonstrates no involuntary repetitive movements. She is oriented to person place and date. Insight and judgment have improved. Thought process demonstrates linear thoughts with no tangential thinking loose associations or flight of ideas. Impressions 1. Bipolar 1 disorder most recent manic with psychosis, rule out schizoaffective disorder polar type, is treated alcohol use disorder cocaine use disorder and cannabis use disorder 2. Cluster B traits 3. Asthma, GERD, history of surgery on foot and shoulder Plan: The patient will be discharged mental health unit today. She will return home residing with her . She will follow up with [facility] for outpatient psychiatric care. She does not wish to participate in any inpatient chemical dependency treatment and plans to address her substance use issues as an outpatient. She will continue on Geodon 60 mg twice daily, Seroquel 100 mg at bedtime, Depakote ER 1000 mg at bedtime and Cogentin 1 mg twice daily. She is instructed to abstain from any use of alcohol marijuana or any other illicit drug. We discussed the use of those substances could exacerbate her psychiatric symptoms and elevate her safety risk. She is instructed to return to the hospital with any acute safety concerns. Patient Condition at Discharge: Stable Plan - Discharge Summary Discharge Rx Participant: Yes New Discharge Prescriptions: New Divalproex ER [Depakote ER] 1,000 mg PO HS #60 tab.er.24h Nicotine 14Mg/24Hr Patch [Habitrol] 1 patch TRANSDERM DAILY #10 patch Ziprasidone [Geodon] 60 mg PO BID #60 cap Continue Omeprazole [PriLOSEC] 20 mg PO AC-BID Ibuprofen [Motrin] 800 mg PO TID PRN PRN Reason: Pain Ranitidine HCl [Zantac] 150 mg PO BID Albuterol Sulfate [Proair Hfa] 2 puff INHALATION RT-Q6H PRN PRN Reason: Shortness Of Breath Oxybutynin Xl [Ditropan XL] 5 mg PO HS Baclofen [Lioresal] 20 mg PO HS Ergocalciferol (Vitamin D2) [Vitamin D2] 50,000 unit PO Q30D Gabapentin [Neurontin] 300 mg PO QAM Gabapentin 600 mg PO HS Benztropine Mesylate [Cogentin] 1 mg PO BID #60 tab QUEtiapine [SEROquel] 100 mg PO HS #30 tab Discontinued Citalopram Hydrobromide [CeleXA] 40 mg PO DAILY #30 Naproxen 500 mg PO BID PRN PRN Reason: Pain busPIRone HCL [Buspar] 30 mg PO BID Ziprasidone HCl [Geodon] 40 mg PO BID Discharge Medication List Omeprazole [PriLOSEC] 20 mg PO AC-BID 12/14/13 [History] Albuterol Sulfate [Proair Hfa] 2 puff INHALATION RT-Q6H PRN 02/27/17 [History] Ibuprofen [Motrin] 800 mg PO TID PRN 02/27/17 [History] Ranitidine HCl [Zantac] 150 mg PO BID 02/27/17 [History] Baclofen [Lioresal] 20 mg PO HS 06/29/18 [History] Ergocalciferol (Vitamin D2) [Vitamin D2] 50,000 unit PO Q30D 06/29/18 [History] Oxybutynin Xl [Ditropan XL] 5 mg PO HS 06/29/18 [History] Gabapentin 600 mg PO HS 07/05/18 [History] Gabapentin [Neurontin] 300 mg PO QAM 07/05/18 [History] Benztropine Mesylate [Cogentin] 1 mg PO BID #60 tab 07/12/18 [Rx] Divalproex ER [Depakote ER] 1,000 mg PO HS #60 tab.er.24h 07/12/18 [Rx] Nicotine 14Mg/24Hr Patch [Habitrol] 1 patch TRANSDERM DAILY #10 patch 07/12/18 [ Rx] QUEtiapine [SEROquel] 100 mg PO HS #30 tab 07/12/18 [Rx] Ziprasidone [Geodon] 60 mg PO BID #60 cap 07/12/18 [Rx] Follow up Appointment(s)/Referral(s): Cleo Dixon DO [Primary Care Provider] - 1-2 days
[2018-07-12] MEDS: ALBUTEROL INHALER 60 PUFF/8 GM INHALER INHALATION PRN (12:36)
== END 2018-07-12 13:31 | disposition home or self-care (01) | DRG 885 ==
LOC: EC 17:08 → 3MHU 19:29
PROVIDERS: ADMIT Psychiatry & Neurology Psychiatry; ATTEND Psychiatry & Neurology Psychiatry
DX: F25.0 Schizoaffective disorder, bipolar type (principal); E66.3 Overweight; F10.10 Alcohol abuse, uncomplicated; F12.20 Cannabis dependence, uncomplicated; F14.10 Cocaine abuse, uncomplicated; F17.210 Nicotine dependence, cigarettes, uncomplicated; J45.909 Unspecified asthma, uncomplicated; K21.9 Gastro-esophageal reflux disease without esophagitis; Z91.5 Personal history of self-harm; Z79.899 Other long term (current) drug therapy; Z82.49 Family history of ischemic heart disease and other diseases of the circulatory system; Z83.3 Family history of diabetes mellitus; Z90.710 Acquired absence of both cervix and uterus; R00.0 Tachycardia, unspecified
CPT/HCPCS: 80053; 80061; 80164; 80306; 81001; 81025; 82075; 83036; 84439; 84443; 84450; 84460; 85025; 94640; 99285

== ENCOUNTER 2018-10-02 08:36 | Inpatient (IN) | payer MEDICARE, OTHER ==
[2018-10-02] MEDS ORDERED: SODIUM CHLORIDE 0.9% 2,000 ML IV STA (08:42)
[2018-10-02] MEDS ORDERED: NALOXONE 0.4 MG/ML 1 ML VIAL IV STA (08:42)
[2018-10-02] MEDS ORDERED: SODIUM CHLORIDE 0.9% 500 ML 500 ML IV STA (08:44)
[2018-10-02] MEDS ORDERED: SODIUM CHLORIDE 0.9% 1,000 ML IV STA (08:44)
--- NOTE | 2018-10-02 08:48 | ED ---
Overdose HPI - General Stated Complaint: overdose Time Seen by Provider: 10/02/18 08:36 Source: EMS, RN notes reviewed, old records reviewed Mode of arrival: EMS - History of Present Illness Initial Comments: This is a 38-year-old female history of bipolar disorder and schizoaffective disorder and prior suicide attempts who was brought in by EMS after being called by someone at her residence stating that she overdosed on medication. Is unclear what she possibly overdosed on she does have multiple medications. No other information available at this time the patient was noted be vomiting per paramedics. She was noted have dilated pupils. She had a glucose of 60. - Related Data Home Medications Medication Instructions Recorded Confirmed Omeprazole [PriLOSEC] 20 mg PO AC-BID 12/14/13 10/02/18 Albuterol Sulfate [Proair Hfa] 2 puff INHALATION RT-Q6H PRN 02/27/17 10/02/18 Ibuprofen [Motrin] 800 mg PO TID PRN 02/27/17 10/02/18 Ranitidine HCl [Zantac] 150 mg PO BID 02/27/17 10/02/18 Baclofen [Lioresal] 20 mg PO HS 06/29/18 10/02/18 Ergocalciferol (Vitamin D2) 50,000 unit PO Q30D 06/29/18 10/02/18 [Vitamin D2] Oxybutynin Xl [Ditropan XL] 5 mg PO HS 06/29/18 10/02/18 Gabapentin [Neurontin] 300 mg PO DAILY 07/05/18 10/02/18 Benztropine Mesylate [Cogentin] 1 mg PO DIRECTED 10/02/18 10/02/18 Divalproex ER [Depakote ER] 1,000 mg PO DIRECTED 10/02/18 10/02/18 Gabapentin [Neurontin] 600 mg PO HS 10/02/18 10/02/18 Naproxen 500 mg PO BID PRN 10/02/18 10/02/18 QUEtiapine [SEROquel] 200 mg PO DIRECTED 10/02/18 10/02/18 Ziprasidone [Geodon] 60 mg PO DIRECTED 10/02/18 10/02/18 Allergies Allergy/AdvReac Type Severity Reaction Status Date / Time No Known Allergies Allergy Verified 10/02/18 08:46 Review of Systems ROS Statement: Those systems with pertinent positive or pertinent negative responses have been documented in the HPI. ROS Other: All systems not noted in ROS Statement are negative. Limitations: ROS unobtainable due to patients medical condition Past Medical History Past Medical History: Asthma, GERD/Reflux History of Any Multi-Drug Resistant Organisms: MRSA Date of last positivie culture/infection: 2014 MDRO Source:: finger Past Surgical History: Hysterectomy, Orthopedic Surgery Additional Past Surgical History / Comment(s): Partial hysterectomy possible. Unknown surgery dates. Right foot surgery. Birthmark Removal. Right shoulder surgery Past Anesthesia/Blood Transfusion Reactions: No Reported Reaction Smoking Status: Current every day smoker - Past Family History Mother Family Medical History: Diabetes Mellitus, Hypertension General Exam - General Exam Comments Initial Comments: This a well-developed well-nourished lethargic female General appearance: lethargic Head exam: Present: atraumatic, normocephalic, normal inspection Eye exam: Present: PERRL, EOMI, other (Dilated pupils bilaterally approximately 5 mm) ENT exam: Present: normal exam, mucous membranes moist Neck exam: Present: normal inspection, full ROM, other (No stridor JVD or bruits ). Absent: tenderness, meningismus, lymphadenopathy Respiratory exam: Present: normal lung sounds bilaterally. Absent: respiratory distress, wheezes, rales, rhonchi, stridor Cardiovascular Exam: Present: normal rhythm, tachycardia, normal heart sounds. Absent: systolic murmur, diastolic murmur, rubs, gallop, clicks GI/Abdominal exam: Present: soft, normal bowel sounds. Absent: distended, tenderness, guarding, rebound, rigid, bruit, pulsatile mass Rectal exam: Present: deferred Extremities exam: Present: normal inspection, full ROM, normal capillary refill. Absent: tenderness, pedal edema, joint swelling, calf tenderness Back exam: Present: normal inspection Neurological exam: Present: alert, altered, CN II-XII intact, reflexes normal. Absent: motor sensory deficit Psychiatric exam: Present: depressed, flat affect Skin exam: Present: warm, dry, intact, normal color. Absent: rash Course Vital Signs 10/02/18 10/02/18 10/02/18 08:44 08:47 09:00 Temperature 97.5 F L Pulse Rate 62 62 Respiratory 16 11 L Rate Blood Pressure 131/76 131/76 O2 Sat by Pulse 98 97 89 L Oximetry 10/02/18 10/02/18 10/02/18 09:20 09:32 09:40 Temperature Pulse Rate 62 61 Respiratory 11 L 16 16 Rate Blood Pressure 122/83 116/79 O2 Sat by Pulse 100 98 Oximetry 10/02/18 10/02/18 10/02/18 10:20 10:40 11:00 Temperature Pulse Rate 57 L 55 L 56 L Respiratory 14 16 18 Rate Blood Pressure 111/94 122/73 128/98 O2 Sat by Pulse 100 99 98 Oximetry 10/02/18 10/02/18 10/02/18 11:20 11:30 12:00 Temperature Pulse Rate 56 L 55 L 81 Respiratory 15 12 18 Rate Blood Pressure 119/83 115/85 121/82 O2 Sat by Pulse 100 100 100 Oximetry 10/02/18 10/02/18 10/02/18 12:30 13:00 13:30 Temperature Pulse Rate 53 L 56 L 57 L Respiratory 12 12 14 Rate Blood Pressure 127/90 116/71 117/69 O2 Sat by Pulse 100 100 100 Oximetry - Reevaluation(s) Reevaluation #1: 10/02/18 09:28 Further information obtained from place apparently the patient got into an argument with her last night took her medications and went to bed and was found at about 6 AM this morning to be diaphoretic and less responsive than usual. There were no voiced threats of suicide per the police interview. The workup continues. Reevaluation #2: 10/02/18 14:16 A she has been resting comfortably for most of the morning and early afternoon repeat EKG shows a normal sinus rhythm a 69 MO interval 132 QRS duration 70 QT since QTC 446/[address]-T wave changes Medical Decision Making - Medical Decision Making Patient continues be somnolent secondary to overdose barbiturates are found in the urine triage screen patient does have possible TCA ingestion. Some improvement in the QT/QTC intervals. I did discuss the case with Dr. Lentz patient will be admitted with continued monitoring IV fluids and psychiatric evaluation the a.m. - Lab Data Result diagrams: 10/02/18 09:07 10/02/18 09:07 Lab Results 10/02/18 10/02/18 10/02/18 Range/Units 08:47 09:07 09:07 WBC (3.8-10.6) k/uL RBC (3.80-5.40) m/uL Hgb (11.4-16.0) gm/dL Hct (34.0-46.0) % MCV (80.0-100.0) fL MCH (25.0-35.0) pg MCHC (31.0-37.0) g/dL RDW (11.5-15.5) % Plt Count (150-450) k/uL Neutrophils % % Lymphocytes % % Monocytes % % Eosinophils % % Basophils % % Neutrophils # (1.3-7.7) k/uL Lymphocytes # (1.0-4.8) k/uL Monocytes # (0-1.0) k/uL Eosinophils # (0-0.7) k/uL Basophils # (0-0.2) k/uL PT (9.0-12.0) sec INR (<1.2) VBG pH (7.31-7.41) VBG pCO2 (37-51) mmHg VBG HCO3 (24-28) mmol/L Sodium 141 (137-145) mmol/L Potassium 4.1 (3.5-5.1) mmol/L Chloride 114 H (98-107) mmol/L Carbon Dioxide 21 L (22-30) mmol/L Anion Gap 6 mmol/L BUN 19 H (7-17) mg/dL Creatinine 0.73 (0.52-1.04) mg/dL Est GFR (CKD-EPI)AfAm >90 (>60 ml/min/1.73 sqM) Est GFR (CKD-EPI)NonAf >90 (>60 ml/min/1.73 sqM) Glucose 113 H (74-99) mg/dL POC Glucose (mg/dL) 113 H (75-99) mg/dL POC Glu Test Hole Driller ID omaker, Jailyn Plasma Lactic Acid Jourdan (0.7-2.0) mmol/L Calcium 9.3 (8.4-10.2) mg/dL Magnesium 2.0 (1.6-2.3) mg/dL Total Bilirubin 0.6 (0.2-1.3) mg/dL AST 13 L (14-36) U/L ALT 25 (9-52) U/L Alkaline Phosphatase 58 (38-126) U/L Ammonia (<30) umol/L Total Creatine Kinase 127 (30-135) U/L CK-MB (CK-2) 0.9 (0.0-2.4) ng/mL CK-MB (CK-2) Rel Index 0.7 Troponin I <0.012 (0.000-0.034) ng/mL Total Protein 6.4 (6.3-8.2) g/dL Albumin 3.7 (3.5-5.0) g/dL Amylase <30 L (30-110) U/L Lipase 49 (23-300) U/L Urine Color Urine Appearance (Clear) Urine pH (5.0-8.0) Ur Specific [place] (1.001-1.035) Urine Protein (Negative) Urine Glucose (UA) (Negative) Urine Ketones (Negative) Urine Blood (Negative) Urine Nitrite (Negative) Urine Bilirubin (Negative) Urine Urobilinogen (<2.0) mg/dL Ur Leukocyte Esterase (Negative) Urine HCG, Qual (Not Detectd) Salicylates <1.0 mg/dL Urine Opiates Screen (NotDetected) Ur Oxycodone Screen (NotDetected) Urine Methadone Screen (NotDetected) Ur Propoxyphene Screen (NotDetected) Acetaminophen <10.0 ug/mL Ur Barbiturates Screen (NotDetected) Valproic Acid ug/mL U Tricyclic Antidepress (NotDetected) Ur Phencyclidine Scrn (NotDetected) Ur Amphetamines Screen (NotDetected) U Methamphetamines Scrn (NotDetected) U Benzodiazepines Scrn (NotDetected) Urine Cocaine Screen (NotDetected) U Marijuana (THC) Screen (NotDetected) Serum Alcohol <10 mg/dL 10/02/18 10/02/18 10/02/18 Range/Units 09:07 09:07 09:07 WBC 6.6 (3.8-10.6) k/uL RBC 4.04 (3.80-5.40) m/uL Hgb 12.6 (11.4-16.0) gm/dL Hct 38.4 (34.0-46.0) % MCV 95.2 (80.0-100.0) fL MCH 31.2 (25.0-35.0) pg MCHC 32.8 (31.0-37.0) g/dL RDW 14.3 (11.5-15.5) % Plt Count 275 (150-450) k/uL Neutrophils % 70 % Lymphocytes % 22 % Monocytes % 5 % Eosinophils % 2 % Basophils % 0 % Neutrophils # 4.6 (1.3-7.7) k/uL Lymphocytes # 1.4 (1.0-4.8) k/uL Monocytes # 0.3 (0-1.0) k/uL Eosinophils # 0.1 (0-0.7) k/uL Basophils # 0.0 (0-0.2) k/uL PT 11.6 (9.0-12.0) sec INR 1.1 (<1.2) VBG pH (7.31-7.41) VBG pCO2 (37-51) mmHg VBG HCO3 (24-28) mmol/L Sodium (137-145) mmol/L Potassium (3.5-5.1) mmol/L Chloride (98-107) mmol/L Carbon Dioxide (22-30) mmol/L Anion Gap mmol/L BUN (7-17) mg/dL Creatinine (0.52-1.04) mg/dL Est GFR (CKD-EPI)AfAm (>60 ml/min/1.73 sqM) Est GFR (CKD-EPI)NonAf (>60 ml/min/1.73 sqM) Glucose (74-99) mg/dL POC Glucose (mg/dL) (75-99) mg/dL POC Glu Test Hole Driller ID Plasma Lactic Acid Jourdan 1.1 (0.7-2.0) mmol/L Calcium (8.4-10.2) mg/dL Magnesium (1.6-2.3) mg/dL Total Bilirubin (0.2-1.3) mg/dL AST (14-36) U/L ALT (9-52) U/L Alkaline Phosphatase (38-126) U/L Ammonia (<30) umol/L Total Creatine Kinase (30-135) U/L CK-MB (CK-2) (0.0-2.4) ng/mL CK-MB (CK-2) Rel Index Troponin I (0.000-0.034) ng/mL Total Protein (6.3-8.2) g/dL Albumin (3.5-5.0) g/dL Amylase (30-110) U/L Lipase (23-300) U/L Urine Color Urine Appearance (Clear) Urine pH (5.0-8.0) Ur Specific [place] (1.001-1.035) Urine Protein (Negative) Urine Glucose (UA) (Negative) Urine Ketones (Negative) Urine Blood (Negative) Urine Nitrite (Negative) Urine Bilirubin (Negative) Urine Urobilinogen (<2.0) mg/dL Ur Leukocyte Esterase (Negative) Urine HCG, Qual (Not Detectd) Salicylates mg/dL Urine Opiates Screen (NotDetected) Ur Oxycodone Screen (NotDetected) Urine Methadone Screen (NotDetected) Ur Propoxyphene Screen (NotDetected) Acetaminophen ug/mL Ur Barbiturates Screen (NotDetected) Valproic Acid ug/mL U Tricyclic Antidepress (NotDetected) Ur Phencyclidine Scrn (NotDetected) Ur Amphetamines Screen (NotDetected) U Methamphetamines Scrn (NotDetected) U Benzodiazepines Scrn (NotDetected) Urine Cocaine Screen (NotDetected) U Marijuana (THC) Screen (NotDetected) Serum Alcohol mg/dL 10/02/18 10/02/18 10/02/18 Range/Units 09:23 09:23 12:07 WBC (3.8-10.6) k/uL RBC (3.80-5.40) m/uL Hgb (11.4-16.0) gm/dL Hct (34.0-46.0) % MCV (80.0-100.0) fL MCH (25.0-35.0) pg MCHC (31.0-37.0) g/dL RDW (11.5-15.5) % Plt Count (150-450) k/uL Neutrophils % % Lymphocytes % % Monocytes % % Eosinophils % % Basophils % % Neutrophils # (1.3-7.7) k/uL Lymphocytes # (1.0-4.8) k/uL Monocytes # (0-1.0) k/uL Eosinophils # (0-0.7) k/uL Basophils # (0-0.2) k/uL PT (9.0-12.0) sec INR (<1.2) VBG pH (7.31-7.41) VBG pCO2 (37-51) mmHg VBG HCO3 (24-28) mmol/L Sodium (137-145) mmol/L Potassium (3.5-5.1) mmol/L Chloride (98-107) mmol/L Carbon Dioxide (22-30) mmol/L Anion Gap mmol/L BUN (7-17) mg/dL Creatinine (0.52-1.04) mg/dL Est GFR (CKD-EPI)AfAm (>60 ml/min/1.73 sqM) Est GFR (CKD-EPI)NonAf (>60 ml/min/1.73 sqM) Glucose (74-99) mg/dL POC Glucose (mg/dL) (75-99) mg/dL POC Glu Test Hole Driller ID Plasma Lactic Acid Jourdan (0.7-2.0) mmol/L Calcium (8.4-10.2) mg/dL Magnesium (1.6-2.3) mg/dL Total Bilirubin (0.2-1.3) mg/dL AST (14-36) U/L ALT (9-52) U/L Alkaline Phosphatase (38-126) U/L Ammonia (<30) umol/L Total Creatine Kinase (30-135) U/L CK-MB (CK-2) (0.0-2.4) ng/mL CK-MB (CK-2) Rel Index Troponin I (0.000-0.034) ng/mL Total Protein (6.3-8.2) g/dL Albumin (3.5-5.0) g/dL Amylase (30-110) U/L Lipase (23-300) U/L Urine Color Yellow Urine Appearance Clear (Clear) Urine pH 6.5 (5.0-8.0) Ur Specific [place] 1.026 (1.001-1.035) Urine Protein Trace H (Negative) Urine Glucose (UA) Negative (Negative) Urine Ketones 1+ H (Negative) Urine Blood Negative (Negative) Urine Nitrite Negative (Negative) Urine Bilirubin Negative (Negative) Urine Urobilinogen 3.0 (<2.0) mg/dL Ur Leukocyte Esterase Negative (Negative) Urine HCG, Qual Not Detected (Not Detectd) Salicylates mg/dL Urine Opiates Screen Not Detected (NotDetected) Ur Oxycodone Screen Not Detected (NotDetected) Urine Methadone Screen Not Detected (NotDetected) Ur Propoxyphene Screen Not Detected (NotDetected) Acetaminophen ug/mL Ur Barbiturates Screen Detected H (NotDetected) Valproic Acid 33.2 ug/mL U Tricyclic Antidepress Not Detected (NotDetected) Ur Phencyclidine Scrn Not Detected (NotDetected) Ur Amphetamines Screen Not Detected (NotDetected) U Methamphetamines Scrn Not Detected (NotDetected) U Benzodiazepines Scrn Not Detected (NotDetected) Urine Cocaine Screen Not Detected (NotDetected) U Marijuana (THC) Screen Not Detected (NotDetected) Serum Alcohol mg/dL 10/02/18 10/02/18 Range/Units 12:16 12:16 WBC (3.8-10.6) k/uL RBC (3.80-5.40) m/uL Hgb (11.4-16.0) gm/dL Hct (34.0-46.0) % MCV (80.0-100.0) fL MCH (25.0-35.0) pg MCHC (31.0-37.0) g/dL RDW (11.5-15.5) % Plt Count (150-450) k/uL Neutrophils % % Lymphocytes % % Monocytes % % Eosinophils % % Basophils % % Neutrophils # (1.3-7.7) k/uL Lymphocytes # (1.0-4.8) k/uL Monocytes # (0-1.0) k/uL Eosinophils # (0-0.7) k/uL Basophils # (0-0.2) k/uL PT (9.0-12.0) sec INR (<1.2) VBG pH 7.36 (7.31-7.41) VBG pCO2 32 L (37-51) mmHg VBG HCO3 18 L (24-28) mmol/L Sodium (137-145) mmol/L Potassium (3.5-5.1) mmol/L Chloride (98-107) mmol/L Carbon Dioxide (22-30) mmol/L Anion Gap mmol/L BUN (7-17) mg/dL Creatinine (0.52-1.04) mg/dL Est GFR (CKD-EPI)AfAm (>60 ml/min/1.73 sqM) Est GFR (CKD-EPI)NonAf (>60 ml/min/1.73 sqM) Glucose (74-99) mg/dL POC Glucose (mg/dL) (75-99) mg/dL POC Glu Test Hole Driller ID Plasma Lactic Acid Jourdan (0.7-2.0) mmol/L Calcium (8.4-10.2) mg/dL Magnesium (1.6-2.3) mg/dL Total Bilirubin (0.2-1.3) mg/dL AST (14-36) U/L ALT (9-52) U/L Alkaline Phosphatase (38-126) U/L Ammonia 25 (<30) umol/L Total Creatine Kinase (30-135) U/L CK-MB (CK-2) (0.0-2.4) ng/mL CK-MB (CK-2) Rel Index Troponin I (0.000-0.034) ng/mL Total Protein (6.3-8.2) g/dL Albumin (3.5-5.0) g/dL Amylase (30-110) U/L Lipase (23-300) U/L Urine Color Urine Appearance (Clear) Urine pH (5.0-8.0) Ur Specific [place] (1.001-1.035) Urine Protein (Negative) Urine Glucose (UA) (Negative) Urine Ketones (Negative) Urine Blood (Negative) Urine Nitrite (Negative) Urine Bilirubin (Negative) Urine Urobilinogen (<2.0) mg/dL Ur Leukocyte Esterase (Negative) Urine HCG, Qual (Not Detectd) Salicylates mg/dL Urine Opiates Screen (NotDetected) Ur Oxycodone Screen (NotDetected) Urine Methadone Screen (NotDetected) Ur Propoxyphene Screen (NotDetected) Acetaminophen ug/mL Ur Barbiturates Screen (NotDetected) Valproic Acid ug/mL U Tricyclic Antidepress (NotDetected) Ur Phencyclidine Scrn (NotDetected) Ur Amphetamines Screen (NotDetected) U Methamphetamines Scrn (NotDetected) U Benzodiazepines Scrn (NotDetected) Urine Cocaine Screen (NotDetected) U Marijuana (THC) Screen (NotDetected) Serum Alcohol mg/dL - EKG Data -: EKG Interpreted by Me EKG shows normal: sinus rhythm (Normal sinus rhythm a 63. Ago 156 QRS duration 86 QT since QTC 470/[address]-T wave changes evidence of prolonged QT interval.) - Radiology Data Radiology results: report reviewed (MG was reviewed no definite acute findings.) , image reviewed Critical Care Time Critical Care Time: Yes Critical Care Time: 49 minutes of critical care time which includes initial presentation with history physical labs x-rays multiple re-evaluations the patient. Discussion with the admitting physician documentation above and admission orders. Disposition Clinical Impression: Delirium due to general medical condition, Drug overdose Disposition: ADMITTED IP TO THIS HOSP Condition: Serious Referrals: Cleo Dixon DO [Primary Care Provider] - 1-2 days
[2018-10-02 09:08] LABS: Glucose,Whole Blood 113 mg/dL (75-99)
[2018-10-02 09:16] LABS: Basophils % (A) 0 %; Eosinophils # (A) 0.1 k/uL (0-0.7); Eosinophils % (A) 2 %; HCT 38.4 % (34.0-46.0); HGB 12.6 gm/dL (11.4-16.0); Lymphocytes # (A) 1.4 k/uL (1.0-4.8); Lymphocytes % (A) 22 %; MCH 31.2 pg (25.0-35.0); MCHC 32.8 g/dL (31.0-37.0); MCV 95.2 fL (80.0-100.0); Mean Platelet Volume 7.4; Monocytes # (A) 0.3 k/uL (0-1.0); Monocytes % (A) 5 %; Neutrophils # (A) 4.6 k/uL (1.3-7.7); Neutrophils % (A) 70 %; Platelet Count 275 k/uL (150-450); RBC 4.04 m/uL (3.80-5.40); RDW 14.3 % (11.5-15.5); WBC 6.6 k/uL (3.8-10.6)
[2018-10-02 09:21] LABS: INR 1.1 (<1.2); Prothrombin Time 11.6 sec (9.0-12.0)
[2018-10-02 09:27] LABS: ALT 25 U/L (9-52); AST 13 U/L (14-36); Acetaminophen <10.0 ug/mL; Albumin 3.7 g/dL (3.5-5.0); Alcohol <10 mg/dL; Alkaline Phosphatase 58 U/L (38-126); Amylase <30 U/L (30-110); Anion Gap 6 mmol/L; Blood Urea Nitrogen 19 mg/dL (7-17); Calcium 9.3 mg/dL (8.4-10.2); Carbon Dioxide 21 mmol/L (22-30); Chloride 114 mmol/L (98-107); Glucose 113 mg/dL (74-99); Lipase 49 U/L (23-300); Potassium 4.1 mmol/L (3.5-5.1); Salicylate <1.0 mg/dL; Sodium 141 mmol/L (137-145); Total Bilirubin 0.6 mg/dL (0.2-1.3); Total Protein 6.4 g/dL (6.3-8.2)
[2018-10-02 09:31] LABS: Appearance,Urine Clear (Clear); Bilirubin,Urine Negative (Negative); Blood,Urine Negative (Negative); Color,Urine Yellow; Glucose,Urine (UA) Negative (Negative); Ketones,Urine 1+ (Negative); Leukocyte Esterase,Urine Negative (Negative); Nitrite,Urine Negative (Negative); PH, Urine 6.5 (5.0-8.0); Protein,Urine Trace (Negative); Specific Gravity,Urine 1.026 (1.001-1.035)
[2018-10-02 09:44] LABS: Amphetamine Screen,Urine Not Detected (NotDetected); Cocaine Screen,Urine Not Detected (NotDetected); Opiate Screen,Urine Not Detected (NotDetected); Phencyclidine Screen,Urine Not Detected (NotDetected)
[2018-10-02 09:45] LABS: Barbiturate Screen,Urine Detected (NotDetected); Benzodiazepines Screen,Urine Not Detected (NotDetected); Methadone Screen, Urine Not Detected (NotDetected); Oxycodone Screen, Urine Not Detected (NotDetected); Tricyclic Antidepressant,Urine Not Detected (NotDetected); Urn Cannabinoid Scrn Not Detected (NotDetected)
[2018-10-02 09:46] LABS: Creatine Kinase 127 U/L (30-135)
[2018-10-02 10:00] LABS: Creatine Kinase MB 0.9 ng/mL (0.0-2.4); Troponin I <0.012 ng/mL (0.000-0.034)
--- NOTE | 2018-10-02 10:17 | CT ---
EXAMINATION TYPE: CT brain wo con DATE OF EXAM: 10/02/2018 COMPARISON: 12/10/2013 HISTORY: 38-year-old female with pain TECHNIQUE: Examination was done in axial plane without intravenous contrast. Coronal and sagittal r econstructions performed. CT DLP: 1172.4 mGycm Automated exposure control for dose reduction was used. FINDINGS: There is no evidence of acute intracranial hemorrhage, acute ischemic changes, mass, mass-effect, or extra-axial fluid collection. There is no effacement of cerebral sulci or basal subarachnoid cister ns. There is no hydrocephalus. There is no midline shift. Dean-white matter distinction is preserv ed. Partially empty sella. Paranasal sinuses and mastoid air cells well pneumatized. Orbits and globes are intact. IMPRESSION: No acute intracranial abnormality seen.
[2018-10-02] MEDS ORDERED: ONDANSETRON 4 MG/2 ML VIAL IVP STA (10:40)
--- NOTE | 2018-10-02 10:59 | XR ---
EXAMINATION TYPE: XR chest 1V portable DATE OF EXAM: 10/02/2018 Comparison: 02/27/2017 Clinical History: 38-year-old female Overdose Findings: NG tube courses below the diaphragm. Hypoventilatory changes of carotid vascular markings. Mild perib ronchial cuffing. Strandy atelectasis left base. No murphy consolidation or sizable effusion. Impression: Hypoventilatory changes. Possible underlying chronic bronchitis/asthma. Strandy left basilar atelecta sis.
[2018-10-02 12:41] LABS: VBG PH 7.36 (7.31-7.41)
[2018-10-02] MEDS ORDERED: NALOXONE 0.4 MG/ML 1 ML VIAL IV PRN (14:20)
[2018-10-02] MEDS ORDERED: SODIUM CHLORIDE 0.9% 1,000 ML IV SCH (14:30)
[2018-10-02 15:58] LABS: Glucose,Whole Blood 85 mg/dL (75-99)
[2018-10-02 16:00] VITALS: BMI 31.7
[2018-10-02 18:03] LABS: ABG HCO3 21 mmol/L (21-25); ABG Oxygen Saturation 99.4 % (94-97); ABG PCO2 28 mmHg (35-45); ABG PH 7.48 (7.35-7.45); ABG PO2 103 mmHg (83-108); ABG TCO2 21 mmol/L (19-24)
[2018-10-02] MEDS: FAMOTIDINE 20 MG/2 ML VIAL IV SCH (20:06)
[2018-10-03] MEDS: PROPOFOL 1,000 MG in EMPTY BAG 1 BAG IV SCH ×4 (04:00→13:43)
--- NOTE | 2018-10-03 04:57 | XR ---
EXAM: XR Chest, 1 View CLINICAL HISTORY: intubation TECHNIQUE: Frontal view of the chest. COMPARISON: 10/02/18 FINDINGS: Lungs: Unremarkable. No consolidation. Endotracheal tube approximately 2.3 cm above the he. There is a gastric tube with the side port at the GE junction distal tip in the proximal stomach. Improved aeration of the lungs compared to the prior study Pleural space: Unremarkable. No pneumothorax. Heart: Unremarkable. No cardiomegaly. Mediastinum: Unremarkable. Bones/joints: Unremarkable. IMPRESSION: Endotracheal tube in good position 2.3 cm above the he. Improved aeration the lungs compared to prior study Gastric tube is in the proximal stomach with side port at the GE junction
[2018-10-03 05:00] LABS: Basophils % (A) 1 %; Eosinophils # (A) 0.1 k/uL (0-0.7); Eosinophils % (A) 1 %; HCT 35.3 % (34.0-46.0); HGB 11.3 gm/dL (11.4-16.0); Lymphocytes # (A) 1.9 k/uL (1.0-4.8); Lymphocytes % (A) 23 %; MCH 30.8 pg (25.0-35.0); MCV 96.1 fL (80.0-100.0); Mean Platelet Volume 7.5; Monocytes # (A) 0.5 k/uL (0-1.0); Monocytes % (A) 6 %; Neutrophils # (A) 5.7 k/uL (1.3-7.7); Neutrophils % (A) 69 %; Platelet Count 259 k/uL (150-450); RBC 3.67 m/uL (3.80-5.40); RDW 14.3 % (11.5-15.5); WBC 8.3 k/uL (3.8-10.6)
[2018-10-03 05:10] LABS: ALT 16 U/L (9-52); AST 14 U/L (14-36); Albumin 3.4 g/dL (3.5-5.0); Alkaline Phosphatase 54 U/L (38-126); Anion Gap 6 mmol/L; Blood Urea Nitrogen 17 mg/dL (7-17); Calcium 9.2 mg/dL (8.4-10.2); Carbon Dioxide 21 mmol/L (22-30); Chloride 114 mmol/L (98-107); Glucose 92 mg/dL (74-99); Magnesium 1.9 mg/dL (1.6-2.3); Phosphorus 2.3 mg/dL (2.5-4.5); Potassium 3.6 mmol/L (3.5-5.1); Sodium 141 mmol/L (137-145); Total Bilirubin 0.7 mg/dL (0.2-1.3); Total Protein 5.9 g/dL (6.3-8.2)
[2018-10-03 05:13] LABS: ABG HCO3 22 mmol/L (21-25); ABG PCO2 38 mmHg (35-45); ABG PH 7.36 (7.35-7.45); ABG PO2 >400 mmHg (83-108); ABG TCO2 23 mmol/L (19-24)
[2018-10-03] MEDS ORDERED: Magnesium Replacement Protocol 1 EACH MISC MISCELLANE PRN (06:01)
[2018-10-03] MEDS ORDERED: Potassium Replacement Protocol 1 EACH MISC MISCELLANE PRN (06:01)
[2018-10-03] MEDS ORDERED: POTASSIUM BICARBONATE/CIT AC 20 MEQ TABLET.EFF NG-TUBE SCH (07:00)
[2018-10-03] MEDS: MAGNESIUM SULFATE-D5W PMX 1 GM in DEXTROSE/WATER 1 100ML.BAG IVPB SCH ×2 (07:21→08:17)
[2018-10-03] MEDS: FAMOTIDINE 20 MG/2 ML VIAL IV SCH (08:18)
[2018-10-03] MEDS ORDERED: ENOXAPARIN 40 MG/0.4 ML SYRINGE SQ SCH (09:00)
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
[2018-10-03] MEDS ORDERED: SODIUM CHLORIDE 0.9% 1,000 ML IV SCH (10:15)
--- NOTE | 2018-10-03 10:45 | CONS ---
CONSULTATION This is a 38-year-old female with a history of multiple medical problems including schizoaffective disorder, bipolar disorder, previous attempts at suicide and apparently she ingested an unknown quantity of barbiturates and baclofen. This was an overdose attempt. Apparently initially, she was awake and alert, but as the day progressed and into the evening, the patient became more and more confused. Eventually she was intubated on the at about 4 o'clock in the morning. She apparently developed severe episodes of apnea with saturations down into the 60s. Anyway, the patient is currently here in the ICU on the ventilator. A CT scan of the brain was negative. The patient is currently on the assist-control mode rate of 16, tidal volume 450, FiO2 of 40%, PEEP of 5. Blood gases show pO2 of greater than 400, pCO2 of 38, pH of 7.36. Both blood gases were done on 100% and tidal volume 430. I have subsequently made additional changes dropping the tidal volume down from 450 down to 375 and decreasing the rate from 16 to 20. The patient remains on 0.9 IV at 75 mL an hour, Diprivan at 75 mcg/kg per minute. She is currently reasonably well sedated at this time. PAST MEDICAL HISTORY: Again her past medical history is apparently positive for asthma, gastroesophageal reflux disease, methicillin-resistant Staph aureus infection, alcohol and tobacco abuse, previous suicide attempt, schizoaffective disorder and bipolar disorder. Obviously, no history can be obtained from her. HOME MEDICATIONS: Her home medications included omeprazole, albuterol inhaler, Motrin, Zantac, Lioresal, baclofen, vitamin D2, oxybutynin, gabapentin, Cogentin, Depakote ER, Neurontin, naproxen, Seroquel, and Geodon. ALLERGIES: Allergies are negative. Medical history as mentioned above and includes among other things, asthma, gastroesophageal reflux disease, and previous MRSA infection. SURGICAL HISTORY: Surgical history includes among other things hysterectomy, right foot surgery, birthmark removal and right shoulder surgery. FAMILY HISTORY: Positive for diabetes and hypertension. The rest of the history is not well defined. REVIEW OF SYSTEMS: Cannot be currently obtained. PHYSICAL EXAMINATION: Current vital signs are reviewed. Her temperature is 98.2, heart rate 70, respiratory rate 21, blood pressure 109/68, mean 81, saturations are 98% on 40% FiO2. Appears in no acute distress. Currently sedated on propofol at 75 mcg/kg per minute. HEENT examination is grossly unremarkable. There is an orally placed endotracheal tube and NG tube. NECK: Supple. Full range of motion. No adenopathy or thyromegaly. Cardiovascular examination reveals regular rhythm and rate. Heart rate 75. S1, S2 normal. Heart sounds are distant. Lungs reveal a few scattered rhonchi. Breath sounds are diminished. ABDOMEN: Soft. Extremities are intact. No cyanosis, clubbing, or edema. Skin without rash. Neurologic examination cannot be adequately assessed. The patient had a chest x-ray which showed evidence of endotracheal tube in good position about 2.5 cm above the he. Lungs show improved aeration from previous x- rays. Microbiology is thus far all negative. Labs are reviewed. White count 8.3, hemoglobin 11.3, hematocrit 35.3, platelet count 259,000. Sodium and potassium normal. Chloride 114, CO2 of 21, anion gap is 6. BUN and creatinine were 17 and 0.71. Medications are reviewed. Currently, the patient is on Lovenox, Pepcid, updrafts, magnesium, Narcan, Zofran, potassium replacement, 0.9 IV, and propofol. ASSESSMENT: 1. Status post suicide attempt with ingestion/overdose of baclofen and barbiturates. 2. Hypoxemic respiratory failure requiring intubation and mechanical ventilation with routine ventilator management. 3. Previous history of multiple suicide attempts. 4. History of bipolar disorder. 5. History of schizoaffective disorder. 6. History of chronic tobacco and alcohol abuse. 7. History of chronic bronchial asthma. 8. History of gastroesophageal reflux disease. 9. Previous history of methicillin-resistant Staphylococcus aureus infection. PLAN: The patient will need ongoing neurologic evaluation. As we do not have neurology services here, we will attempt to transfer the patient either [facility] or [facility]. Additional recommendations and suggestions are forthcoming. Prognosis is very guarded. Hemodynamically, the patient is stable. Additional recommendations and suggestions are forthcoming. Poison Control apparently noted that the patient could be on the ventilator for a long period of time, which is typical of baclofen ingestions. MMODL / IJN: [id number] /
[2018-10-03] MEDS: IPRATROPIUM-ALBUTEROL 3 ML NEB INHALATION SCH ×2 (11:36)
[2018-10-03 11:46] VITALS: TEMP 98.3
[2018-10-03 12:10] VITALS: RESP 20
--- NOTE | 2018-10-03 12:31 | CONS ---
CONSULTATION Mrs. Borja is a 38-year-old female who is seen for cardiac evaluation. Patient is currently intubated. The patient has a history of schizoaffective disorder and bipolar disorder with a prior history of multiple attempts at suicide. The patient is admitted with a drug overdose of possibly baclofen and barbiturates. There is no definite prior history of cardiac history or prior history of cardiomyopathy. We were requested to see the patient because of mildly increase QT interval. HOME MEDICATIONS: Patient's home medications included Lioresal, baclofen, oxybutynin, gabapentin, Depakote, Neurontin, Seroquel, and Geodon. PHYSICAL EXAMINATION: Physical examination at present reveals a 38-year-old female who is intubated and agitated. Blood pressure is 110/68 mmHg. Head/ENT examination is negative. Neck is supple. There is no increase in jugular venous pressure. Both the carotid pulses are felt. There is no bruit. Chest is symmetrical. HEART: The PMI is not felt. First and second heart sounds are heard. Lungs reveal bilateral scattered rhonchi. Abdomen is soft. EKG showed mildly elevated QT interval. No dysrhythmias are noted. FINAL IMPRESSION: This patient is status post drug overdose. The patient has had a borderline elevated QT interval. However, no dysrhythmias are noted. The patient is going to be transferred to [facility] for further neurological evaluation. At present, no further cardiac workup is needed. MMODL / IJN: [id number] /
[2018-10-03 13:30] LABS: Hemoglobin A1C 5.2 % (4.0-6.0)
[2018-10-03 13:44] VITALS: BP 96/63; PULSE 68
[2018-10-03] MEDS ORDERED: CHLORHEXIDINE GLUCONATE 15 ML CUP MUCOUS MEM SCH (21:00)
== END 2018-10-03 14:24 | disposition short-term general hospital (02) | DRG 917 ==
LOC: EC 08:36 → 2SICU 14:20
PROVIDERS: ADMIT Internal Medicine; ATTEND Internal Medicine
PROC: 5A1935Z Respiratory Ventilation, Less than 24 Consecutive Hours (ICD-10-PCS; principal; 2018-10-03)
DX: T42.8X2A Poisoning by antiparkinsonism drugs and other central muscle-tone depressants, intentional self-harm, initial encounter (principal); J96.01 Acute respiratory failure with hypoxia; F05 Delirium due to known physiological condition; J98.11 Atelectasis; F17.200 Nicotine dependence, unspecified, uncomplicated; F25.9 Schizoaffective disorder, unspecified; I45.81 Long QT syndrome; J42 Unspecified chronic bronchitis; J45.909 Unspecified asthma, uncomplicated; T42.3X2A Poisoning by barbiturates, intentional self-harm, initial encounter; K21.9 Gastro-esophageal reflux disease without esophagitis; Z79.899 Other long term (current) drug therapy; Z82.49 Family history of ischemic heart disease and other diseases of the circulatory system; Z83.3 Family history of diabetes mellitus; Z86.14 Personal history of Methicillin resistant Staphylococcus aureus infection; F31.9 Bipolar disorder, unspecified; Z91.5 Personal history of self-harm; Z79.1 Long term (current) use of non-steroidal anti-inflammatories (NSAID)
CPT/HCPCS: 36415; 36600; 51702; 70450; 71045; 80053; 80164; 80306; 80320; 81003; 81025; 82140; 82150; 82550; 82553; 82803; 82805; 83036; 83520; 83605; 83690; 83735; 84100; 84484; 85025; 85610; 93005; 94002; 94640; 94660; 96361; 96374; 96375; 99291

== ENCOUNTER 2018-10-11 17:03 | Inpatient (IN) | payer MEDICARE, MEDICAID ==
--- NOTE | 2018-10-11 17:26 | ED ---
Psych HPI - General Chief Complaint: Psychiatric Symptoms Stated Complaint: EPS eval Time Seen by Provider: 10/11/18 17:24 Source: patient, RN notes reviewed, old records reviewed Mode of arrival: ambulatory - History of Present Illness Initial Comments: This is a 38-year-old female the ER for evaluation with history of psychiatric illness. Patient is had inpatient hospitalization for psychiatric illness. Patient attempted that time to take overdose of medications. Patient coming into ER today for suicidal thoughts patient states she is also having hallucinations, denies drugs or alcohol MD Complaint: suicidal ideation, feels depressed -: unknown Associated Psychiatric Symptoms: depression, suicidal ideation, racing thoughts History of same: Yes Quality: getting worse Improves With: medication Worsens With: none Context: not taking psychiatric medications Associated Symptoms: confusion Treatments Prior to Arrival: placed on mental health hold If Self Harm: admits thoughts of self harm - Related Data Home Medications Medication Instructions Recorded Confirmed Omeprazole [PriLOSEC] 20 mg PO AC-BID 12/14/13 10/11/18 Albuterol Sulfate [Proair Hfa] 2 puff INHALATION RT-Q6H PRN 02/27/17 10/11/18 Ibuprofen [Motrin] 800 mg PO DAILY PRN 02/27/17 10/11/18 Ranitidine HCl [Zantac] 150 mg PO BID 02/27/17 10/11/18 Ergocalciferol (Vitamin D2) 50,000 unit PO Q30D 06/29/18 10/11/18 [Vitamin D2] Oxybutynin Xl [Ditropan XL] 5 mg PO HS 06/29/18 10/11/18 Gabapentin [Neurontin] 300 mg PO DAILY 07/05/18 10/11/18 Benztropine Mesylate [Cogentin] 1 mg PO BID 10/02/18 10/11/18 Divalproex ER [Depakote ER] 1,000 mg PO HS 10/02/18 10/11/18 Gabapentin [Neurontin] 600 mg PO HS 10/02/18 10/11/18 Naproxen 500 mg PO BID PRN 10/02/18 10/11/18 QUEtiapine [SEROquel] 200 mg PO HS 10/02/18 10/11/18 Ziprasidone [Geodon] 60 mg PO BID 10/02/18 10/11/18 Allergies Allergy/AdvReac Type Severity Reaction Status Date / Time No Known Allergies Allergy Verified 10/11/18 21:46 Review of Systems ROS Statement: Those systems with pertinent positive or pertinent negative responses have been documented in the HPI. ROS Other: All systems not noted in ROS Statement are negative. Past Medical History Past Medical History: Asthma, GERD/Reflux Additional Past Medical History / Comment(s): Occasional back pain, past tongue laceration. History of Any Multi-Drug Resistant Organisms: MRSA Date of last positivie culture/infection: 2014 MDRO Source:: finger Past Surgical History: Orthopedic Surgery Additional Past Surgical History / Comment(s): R inguinal hernia repair, R shoulder aniya removal per spouse, R ankle fracture and spouse believes there may be hardware. Past Anesthesia/Blood Transfusion Reactions: No Reported Reaction Past Psychological History: Anxiety, Bipolar, Depression, Schizoaffective Disorder Smoking Status: Current every day smoker - Past Family History Mother Family Medical History: Hypertension Father Family Medical History: Cancer Additional Family Medical History / Comment(s): Unknown type of cancer. General Exam Limitations: no limitations General appearance: alert, in no apparent distress Head exam: Present: atraumatic, normocephalic, normal inspection Eye exam: Present: normal appearance, PERRL, EOMI. Absent: scleral icterus, conjunctival injection, periorbital swelling ENT exam: Present: normal exam, mucous membranes moist Neck exam: Present: normal inspection. Absent: tenderness, meningismus, lymphadenopathy Respiratory exam: Present: normal lung sounds bilaterally. Absent: respiratory distress, wheezes, rales, rhonchi, stridor Cardiovascular Exam: Present: regular rate, normal rhythm, normal heart sounds. Absent: systolic murmur, diastolic murmur, rubs, gallop, clicks GI/Abdominal exam: Present: soft, normal bowel sounds. Absent: distended, tenderness, guarding, rebound, rigid Extremities exam: Present: normal inspection, full ROM, normal capillary refill. Absent: tenderness, pedal edema, joint swelling, calf tenderness Back exam: Present: normal inspection Neurological exam: Present: alert, oriented X3, CN II-XII intact Psychiatric exam: Present: normal affect, normal mood Skin exam: Present: warm, dry, intact, normal color. Absent: rash Course Vital Signs 10/11/18 17:14 Temperature 98 F Pulse Rate 90 Respiratory 18 Rate Blood Pressure 103/73 O2 Sat by Pulse 98 Oximetry - Reevaluation(s) Reevaluation #1: 10/11/18 20:14 Medical clear for psychiatric evaluation Medical Decision Making - Medical Decision Making 2-year-old female seen and evaluated by psychiatry, patient be admitted for mental health evaluation and treatment - Lab Data Result diagrams: 10/13/18 11:23 10/13/18 08:15 Lab Results 10/11/18 Range/Units 17:36 Urine Opiates Screen Not Detected (NotDetected) Ur Oxycodone Screen Not Detected (NotDetected) Urine Methadone Screen Not Detected (NotDetected) Ur Propoxyphene Screen Not Detected (NotDetected) Ur Barbiturates Screen Not Detected (NotDetected) U Tricyclic Antidepress Detected H (NotDetected) Ur Phencyclidine Scrn Not Detected (NotDetected) Ur Amphetamines Screen Not Detected (NotDetected) U Methamphetamines Scrn Not Detected (NotDetected) U Benzodiazepines Scrn Not Detected (NotDetected) Urine Cocaine Screen Not Detected (NotDetected) U Marijuana (THC) Screen Not Detected (NotDetected) Disposition Clinical Impression: Bipolar 1 disorder, depressed, Alcohol use disorder, Delirium due to general medical condition, Acute psychosis Disposition: TRANSFER TO PSYCH HOSP/UNIT Condition: Fair Is patient prescribed a controlled substance at d/c from ED?: No
[2018-10-11 18:09] LABS: Amphetamine Screen,Urine Not Detected (NotDetected); Barbiturate Screen,Urine Not Detected (NotDetected); Benzodiazepines Screen,Urine Not Detected (NotDetected); Cocaine Screen,Urine Not Detected (NotDetected); Methadone Screen, Urine Not Detected (NotDetected); Opiate Screen,Urine Not Detected (NotDetected); Oxycodone Screen, Urine Not Detected (NotDetected); Phencyclidine Screen,Urine Not Detected (NotDetected); Tricyclic Antidepressant,Urine Detected (NotDetected); Urn Cannabinoid Scrn Not Detected (NotDetected)
[2018-10-11] MEDS ORDERED: MAG HYDROX/AL HYDROX/SIMETH 30 ML CUP PO PRN (23:28)
[2018-10-11] MEDS ORDERED: MAGNESIUM HYDROXIDE 2,400 MG/10 ML CUP PO PRN (23:28)
[2018-10-11] MEDS ORDERED: LORazepam 1 MG TAB PO PRN (23:28)
[2018-10-11] MEDS ORDERED: ACETAMINOPHEN TAB 325 MG TAB PO PRN (23:28)
[2018-10-11] MEDS ORDERED: LORazepam 2 MG/ML INJ IM PRN (23:30)
[2018-10-11] MEDS ORDERED: ALBUTEROL NEBULIZED 2.5 MG/3 ML INHALATION PRN (23:35)
[2018-10-11] MEDS ORDERED: ERGOCALCIFEROL 50,000 UNIT CAP PO SCH (23:45)
[2018-10-12] MEDS: IBUPROFEN 800 MG TAB PO PRN ×2 (00:18→07:54)
[2018-10-12] MEDS: NICOTINE 14MG/24HR PATCH TRANSDERM SCH ×2 (01:02→07:53)
[2018-10-12] MEDS: BENZTROPINE MESYLATE 1 MG TAB PO SCH ×2 (07:53→20:13)
[2018-10-12] MEDS: FAMOTIDINE 20 MG TAB PO SCH ×2 (07:53→20:12)
[2018-10-12] MEDS: PANTOPRAZOLE 40 MG TABLET PO SCH (07:53)
[2018-10-12] MEDS: GABAPENTIN 300 MG CAP PO SCH ×2 (07:54→20:12)
[2018-10-12] MEDS: ZIPRASIDONE 60 MG CAP PO SCH ×2 (07:56→20:12)
[2018-10-12 08:35] LABS: Basophils # (A) 0.1 k/uL (0-0.2); Basophils % (A) 1 %; Eosinophils # (A) 0.1 k/uL (0-0.7); Eosinophils % (A) 2 %; HCT 38.3 % (34.0-46.0); HGB 12.4 gm/dL (11.4-16.0); Lymphocytes # (A) 2.1 k/uL (1.0-4.8); Lymphocytes % (A) 42 %; MCH 30.5 pg (25.0-35.0); MCHC 32.5 g/dL (31.0-37.0); MCV 93.9 fL (80.0-100.0); Monocytes # (A) 0.3 k/uL (0-1.0); Monocytes % (A) 6 %; Neutrophils # (A) 2.4 k/uL (1.3-7.7); Neutrophils % (A) 47 %; Platelet Count 278 k/uL (150-450); RBC 4.08 m/uL (3.80-5.40); RDW 13.9 % (11.5-15.5); WBC 5.1 k/uL (3.8-10.6)
[2018-10-12 08:47] LABS: Albumin 3.8 g/dL (3.5-5.0); Calcium 10.2 mg/dL (8.4-10.2); Total Bilirubin 0.6 mg/dL (0.2-1.3); Total Protein 6.5 g/dL (6.3-8.2)
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
--- NOTE | 2018-10-12 12:37 | P.CONS ---
History of Present Illness - Reason for Consult Consult date: 10/12/18 Medical management Requesting physician: Titi Arteaga - History of Present Illness This is a 38-year-old female patient of Dr. Dixon. She reports that she had recently violated probation was in mental health court on Wednesday at that time patient was instructed that she would either have to go to custodial would be admitted to the mental health unit. Patient opted at that time to be admitted to mental health unit. Patient was recently admitted to the intensive care unit a proximally 2 weeks ago for an overdose in which he took 2010. At that time patient was on mechanical ventilation and was transferred to [facility] for neurology consult. Patient states she was released from [facility] on 10/07. Patient has a known past medical history of bipolar, alcohol, marijuana and cocaine abuse. Additional medical history includes asthma GERD, occasional back pain and schizoaffective disorder. At this time patient has been sitting comfortably in chair. Patient does not appear agitated. Patient denies any nausea vomiting or diarrhea. Patient denies any urinary burning or frequency. Patient denies chest pain or shortness breath. Review of Systems Please refer to HPI otherwise unremarkable Past Medical History Past Medical History: Asthma, GERD/Reflux Additional Past Medical History / Comment(s): Occasional back pain, past tongue laceration. History of Any Multi-Drug Resistant Organisms: MRSA Year Discovered:: 2014 MDRO Source:: finger Past Surgical History: Orthopedic Surgery Additional Past Surgical History / Comment(s): R inguinal hernia repair, R shoulder aniya removal per spouse, R ankle fracture and spouse believes there may be hardware. Past Anesthesia/Blood Transfusion Reactions: No Reported Reaction Past Psychological History: Anxiety, Bipolar, Depression, Schizoaffective Disorder Smoking Status: Current every day smoker - Past Family History Mother Family Medical History: Hypertension Father Family Medical History: Cancer Additional Family Medical History / Comment(s): Unknown type of cancer. Medications and Allergies Home Medications Medication Instructions Recorded Confirmed Type Omeprazole [PriLOSEC] 20 mg PO AC-BID 12/14/13 10/11/18 History Albuterol Sulfate [Proair Hfa] 2 puff INHALATION RT-Q6H PRN 02/27/17 10/11/18 History Ibuprofen [Motrin] 800 mg PO DAILY PRN 02/27/17 10/11/18 History Ranitidine HCl [Zantac] 150 mg PO BID 02/27/17 10/11/18 History Ergocalciferol (Vitamin D2) 50,000 unit PO Q30D 06/29/18 10/11/18 History [Vitamin D2] Oxybutynin Xl [Ditropan XL] 5 mg PO HS 06/29/18 10/11/18 History Gabapentin [Neurontin] 300 mg PO DAILY 07/05/18 10/11/18 History Benztropine Mesylate [Cogentin] 1 mg PO BID 10/02/18 10/11/18 History Divalproex ER [Depakote ER] 1,000 mg PO HS 10/02/18 10/11/18 History Gabapentin [Neurontin] 600 mg PO HS 10/02/18 10/11/18 History Naproxen 500 mg PO BID PRN 10/02/18 10/11/18 History QUEtiapine [SEROquel] 200 mg PO HS 10/02/18 10/11/18 History Ziprasidone [Geodon] 60 mg PO BID 10/02/18 10/11/18 History Allergies Allergy/AdvReac Type Severity Reaction Status Date / Time No Known Allergies Allergy Verified 10/11/18 21:46 Physical Exam Vitals: Vital Signs Temp Pulse Pulse Resp BP BP Pulse Ox 10/12/18 00:18 97 F L 83 20 109/71 10/11/18 17:14 98 F 90 18 103/73 98 Intake and Output 10/11/18 10/12/18 10/12/18 22:59 06:59 14:59 Other: Weight 90.718 kg Head normocephalic Neck supple Lungs diminished bilaterally Heart regular rate and rhythm S1-S2, no rub or gallop Abdomen is soft nontender nondistended positive bowel sounds no hepatosplenomegaly Extremities no edema Neuro alert and orientated to 3 Results CBC & Chem 7: 10/12/18 07:50 10/12/18 07:50 Labs: Abnormal Lab Results - Last 24 Hours (Table) 10/11/18 10/12/18 Range/Units 17:36 07:50 Chloride 109 H (98-107) mmol/L BUN 32 H (7-17) mg/dL Creatinine 1.07 H (0.52-1.04) mg/dL LDL Cholesterol, Calc 120 H (0-99) mg/dL U Tricyclic Antidepress Detected H (NotDetected) Assessment and Plan Assessment: 1. Bipolar and schizoaffective disorder. Patient admitted to mental health unit at this time 2. History of asthma no exacerbation at this time 3. Recent overdose which patient required mechanical ventilation and transferred to [facility] for neurology consult. Patient does not recall any changes to medication 4. History of GERD 5. Elevated kidney enzymes. Kidney enzymes slightly elevated. Will repeat lab work tomorrow. Creatinine 1.07 and bun 32. Thank you for this consultation we will continue to follow patient closely throughout stay Time with Patient: Greater than 30 (Greater than 60% of the total time spent in counseling and coordination of care. I performed an examination of the patient and discussed their management with the Nurse Practitioner. I have reviewed the Nurse Practitioner's notes and agree with the documented findings and plan of care)
[2018-10-12 18:09] LABS: Hemoglobin A1C 5.3 % (4.0-6.0)
[2018-10-12] MEDS: DIVALPROEX ER 500 MG TAB.ER.24H PO SCH (20:12)
[2018-10-12] MEDS: OXYBUTYNIN XL 5 MG TAB.ER.24 PO SCH (20:12)
[2018-10-12] MEDS ORDERED: QUEtiapine 200 MG TAB PO SCH (21:00)
[2018-10-13] MEDS: NICOTINE 14MG/24HR PATCH TRANSDERM SCH (08:11)
[2018-10-13] MEDS: FAMOTIDINE 20 MG TAB PO SCH ×2 (08:11→21:38)
[2018-10-13] MEDS: PANTOPRAZOLE 40 MG TABLET PO SCH (08:11)
[2018-10-13] MEDS: GABAPENTIN 300 MG CAP PO SCH ×2 (08:11→21:38)
[2018-10-13] MEDS: BENZTROPINE MESYLATE 1 MG TAB PO SCH ×2 (08:11→21:37)
[2018-10-13] MEDS: ZIPRASIDONE 60 MG CAP PO SCH ×2 (08:12→21:40)
[2018-10-13] MEDS: IBUPROFEN 800 MG TAB PO PRN (08:12)
[2018-10-13 09:09] LABS: Calcium 10.3 mg/dL (8.4-10.2); Potassium 4.3 mmol/L (3.5-5.1); Total Bilirubin 0.5 mg/dL (0.2-1.3)
--- NOTE | 2018-10-13 10:07 | P.PN ---
Progress Note - Text Interval history: The patient is found in her room sleeping she follows me to an interview room. She states that her mood is okay however she continues to be troubled by auditory hallucinations. She states that she heard an auditory hallucination from the television this morning telling her it's okay to kill herself and that God would accept her. She states that she was home right now she would probably would have acted on it. She is planning on avoiding the TV today. She states that she feels safe here and would not harm herself here. She is concerned that she is not able to reach her . She suspects she may be in a rehab facility. The patient has not been attending groups this morning she is encouraged to attend groups. We reviewed her psychotropic medications her questions were answered. Mental status exam: The patient is a tall -[place] female appearing her stated age. She is dressed in hospital gowns. She has a disheveled appearance. She is somewhat hyperactive while seated in her chair. She is cooperative and pleasant. She reports suicidal ideation as suggested by the auditory hallucination. She states that she is able to control those thoughts and not act on them here. She is reporting no visual hallucinations. She is endorsing no specific delusions. Thought process is relatively linear she demonstrates no tangential thinking loose associations or flight of ideas. She demonstrates no verbal or physical aggressiveness. Insight and judgment limited. Plan: The patient will continue on her current psychotropic medications however we will titrate the Seroquel to 300 mg at bedtime. We will monitor her for safety and encourage full participation in the milieu. Vital signs reviewed.
[2018-10-13 12:15] LABS: Basophils # (A) 0.1 k/uL (0-0.2); Basophils % (A) 1 %; Eosinophils # (A) 0.2 k/uL (0-0.7); Eosinophils % (A) 2 %; HCT 37.3 % (34.0-46.0); HGB 12.3 gm/dL (11.4-16.0); Lymphocytes # (A) 1.9 k/uL (1.0-4.8); Lymphocytes % (A) 26 %; MCHC 32.9 g/dL (31.0-37.0); MCV 94.4 fL (80.0-100.0); Mean Platelet Volume 8.2; Monocytes # (A) 0.4 k/uL (0-1.0); Monocytes % (A) 5 %; Neutrophils # (A) 4.8 k/uL (1.3-7.7); Neutrophils % (A) 65 %; Platelet Count 265 k/uL (150-450); RBC 3.96 m/uL (3.80-5.40); RDW 13.8 % (11.5-15.5); WBC 7.4 k/uL (3.8-10.6)
[2018-10-13] MEDS: DIVALPROEX ER 500 MG TAB.ER.24H PO SCH (21:38)
[2018-10-13] MEDS: QUEtiapine 100 MG TAB PO SCH (21:40)
[2018-10-13] MEDS: OXYBUTYNIN XL 5 MG TAB.ER.24 PO SCH (21:40)
[2018-10-14] MEDS: FAMOTIDINE 20 MG TAB PO SCH ×2 (08:31→21:28)
[2018-10-14] MEDS: ZIPRASIDONE 60 MG CAP PO SCH ×2 (08:31→21:31)
[2018-10-14] MEDS: NICOTINE 14MG/24HR PATCH TRANSDERM SCH (08:31)
[2018-10-14] MEDS: BENZTROPINE MESYLATE 1 MG TAB PO SCH ×2 (08:31→21:27)
[2018-10-14] MEDS: PANTOPRAZOLE 40 MG TABLET PO SCH (08:31)
[2018-10-14] MEDS: GABAPENTIN 300 MG CAP PO SCH ×2 (08:31→21:29)
--- NOTE | 2018-10-14 09:46 | P.PN ---
Progress Note - Text Interval history: The patient is found in her room she follows me to an interview room. She indicates her mood is a little better today. She has been avoiding other people and the TV. Subsequently she states she hasn't experienced any hallucinations. She reports that she will attempt to attend groups today. She felt a little dizzy this morning upon awakening and wonders if it was due to Seroquel. Vital signs reviewed. She states that she has spoken with her armed custom protection officer and she is going to go to [facility] for inpatient chemical dependency treatment after she leaves here. We will have social work verify if she has a placement date. Mental status exam: The patient is alert she is dressed in her own clothing she is mildly disheveled. She is pleasant and cooperative. She indicates her mood is mildly better today. She has not been thinking of suicidal ideation as much because the auditory hallucinations have not been present yet. She reports no homicidal ideation. She is endorsing no specific delusions or visual hallucinations. She demonstrates no tangential thinking loose associations or flight of ideas. She can be verbose at times but is easily directed. She demonstrates no verbal or physical aggressiveness. She demonstrates no involuntary repetitive movements. She is oriented to person place and date. Affect is constricted overall. Plan: The patient will continue on her psychotropic medications as written. We will monitor her vital signs. She is encouraged to participate fully in the milieu. We will have social work verify whether or not she has a [facility] placement date. She requires continued psychiatric hospitalization. She may be appropriate for discharge early next week depending on her clinical status.
[2018-10-14] MEDS: QUEtiapine 100 MG TAB PO SCH (21:27)
[2018-10-14] MEDS: OXYBUTYNIN XL 5 MG TAB.ER.24 PO SCH (21:28)
[2018-10-14] MEDS: DIVALPROEX ER 500 MG TAB.ER.24H PO SCH (21:28)
[2018-10-15 07:03] VITALS: RESP 16
[2018-10-15] MEDS: PANTOPRAZOLE 40 MG TABLET PO SCH (08:36)
[2018-10-15] MEDS: NICOTINE 14MG/24HR PATCH TRANSDERM SCH (08:36)
[2018-10-15] MEDS: BENZTROPINE MESYLATE 1 MG TAB PO SCH ×2 (08:36→21:04)
[2018-10-15] MEDS: GABAPENTIN 300 MG CAP PO SCH ×2 (08:36→21:04)
[2018-10-15] MEDS: ZIPRASIDONE 60 MG CAP PO SCH ×2 (08:36→21:41)
[2018-10-15] MEDS: FAMOTIDINE 20 MG TAB PO SCH ×2 (08:36→21:04)
--- NOTE | 2018-10-15 09:59 | P.PN ---
Progress Note - Text Interval history: The patient is found in her room she follows me to an interview room. She states that her mood is improving. She has a placement day at [facility] for inpatient chemical dependency treatment Wednesday afternoon. She is concerned that she needs a ride there and that her code enforcement officer needs to be informed. She was reassured that social work will assist with those tasks. We reviewed her psychotropic medication. She has no questions or concerns. She has been selectively attending groups. No report of any behavioral issues. Mental status exam: The patient is alert she is dressed in her own clothing she is mildly disheveled hygiene is adequate. Eye contact is appropriate speech is fluent spontaneous nonpressured. She reports her moods improving. She is reporting no acute suicidal ideation today. No report of any homicidal ideation intent or plan. She reports no auditory or visual hallucinations today she indicates she feels safe. She demonstrates no verbal or physical aggressiveness she demonstrates no repetitive involuntary movements. Insight and judgment slowly improving. She is oriented to person place and date. Plan: The patient will continue on her current psychotropic medications. We will monitor her for safety. We will anticipate a discharge Wednesday if she is clinically stable. We will draw a Depakote level. Vital signs reviewed.
[2018-10-15] MEDS: QUEtiapine 100 MG TAB PO SCH (21:04)
[2018-10-15] MEDS: OXYBUTYNIN XL 5 MG TAB.ER.24 PO SCH (21:04)
[2018-10-15] MEDS: DIVALPROEX ER 500 MG TAB.ER.24H PO SCH (21:04)
[2018-10-16] MEDS: BENZTROPINE MESYLATE 1 MG TAB PO SCH ×2 (08:20→20:46)
[2018-10-16] MEDS: FAMOTIDINE 20 MG TAB PO SCH ×2 (08:20→20:46)
[2018-10-16] MEDS: ZIPRASIDONE 60 MG CAP PO SCH ×2 (08:20→20:46)
[2018-10-16] MEDS: PANTOPRAZOLE 40 MG TABLET PO SCH (08:20)
[2018-10-16] MEDS: NICOTINE 14MG/24HR PATCH TRANSDERM SCH (08:20)
[2018-10-16 09:13] LABS: Valproic Acid (Depakene) 70.6 ug/mL
[2018-10-16] MEDS: GABAPENTIN 300 MG CAP PO SCH ×2 (09:16→20:46)
--- NOTE | 2018-10-16 12:56 | P.PN ---
Progress Note - Text Interval history: The patient is found in the [facility] she follows me to an interview room. She states that her mood is improving. She had a good visit from her last evening. She is very motivated to attend [facility] starting tomorrow. She indicates her sleep has been stable appetite stable. She has no questions regarding her psychotropic medications. Depakote level was 70.6. She has been selectively attending groups. Mental status exam: The patient is alert she is dressed in her own clothing hygiene grooming adequate. Speech is fluent spontaneous nonpressured. She indicates her mood is better. Affect is brighter. She is reporting no suicidal or homicidal ideation intent or plan. She is reporting no auditory or visual hallucinations at this time. She states that she is able to be around the television with it being on and not having any disturbing messages. She demonstrates no verbal or physical aggressiveness she demonstrates no involuntary repetitive movements. Insight and judgment improving. Plan: The patient will continue on her current psychotropic medications. We will anticipate a discharge tomorrow. We will continue to monitor her for safety. Vital signs reviewed.
[2018-10-16 19:02] VITALS: BMI 30.2
[2018-10-16] MEDS: OXYBUTYNIN XL 5 MG TAB.ER.24 PO SCH (20:46)
[2018-10-16] MEDS: DIVALPROEX ER 500 MG TAB.ER.24H PO SCH (20:46)
[2018-10-16] MEDS: QUEtiapine 100 MG TAB PO SCH (20:46)
[2018-10-17 06:50] VITALS: BP 108/68; PULSE 79; TEMP 98.5
[2018-10-17] MEDS: NICOTINE 14MG/24HR PATCH TRANSDERM SCH (07:50)
[2018-10-17] MEDS: FAMOTIDINE 20 MG TAB PO SCH (07:51)
[2018-10-17] MEDS: PANTOPRAZOLE 40 MG TABLET PO SCH (07:51)
[2018-10-17] MEDS: GABAPENTIN 300 MG CAP PO SCH (07:51)
[2018-10-17] MEDS: BENZTROPINE MESYLATE 1 MG TAB PO SCH (07:51)
[2018-10-17] MEDS: ZIPRASIDONE 60 MG CAP PO SCH (07:51)
--- NOTE | 2018-10-17 09:03 | P.DS ---
Providers Date of admission: 10/11/18 22:38 Expected date of discharge: 10/17/18 Attending physician: Srikanth Guadarrama Consults: 10/11/18 23:28 Consult Physician Routine Consulting Provider: Abida Lentz Consult Reason/Comments: H&P and medical Do you want consulting provider notified?: Already Contacted Primary care physician: Cleo Dixon - Discharge Diagnosis(es) (1) Bipolar 1 disorder, depressed Current Visit: Yes Status: Acute Priority: High (2) Alcohol use disorder Current Visit: Yes Status: Acute Priority: Medium (3) Cannabis use disorder, moderate, dependence Current Visit: No Status: Acute Priority: Medium (4) Cocaine use disorder Current Visit: No Status: Acute Priority: Medium Hospital Course: Brief summary of admission note: This patient is a 38-year-old - Taj[place] female who presented to the mental health unit through the emergency room with suicidal ideation. The patient reported that she had recently violated probation and was in mental health court on the Wednesday prior to this admission. She states the mandate retail service merchandiser gave her the choice of either going to intermediate or come to the mental health unit. She did report having a depressed mood with suicidal thoughts in particular when having verbal arguments with her . She stated that earlier in September she had overdosed with 20 baclofen with the intent to . She was treated here at this hospital in the intensive care unit and required intubation to protect her airway. The patient has a known bipolar disorder and history of alcohol cannabis and cocaine use disorders. For full details please refer to my psychiatric evaluation dated 10/12/2018. Summary of hospital course: The patient was admitted to the mental health unit voluntarily. We reviewed her presenting symptoms and treatment options. We restarted her medications including Depakote ER Neurontin Seroquel and Cogentin. She selectively attended groups. She demonstrated no agitated behavior. At admission she was describing auditory hallucinations directing self-harm. She states that these have resolved and she is reporting no auditory hallucinations. She indicates having no suicidal ideation intent or plan. It was determined that she would need to participate in inpatient chemical dependency treatment and she is going to be transferred to [facility] today for that treatment. She demonstrated no agitated behavior while here in the mental health unit she feels safe for discharge to [facility]. She was seen by internal medicine for routine history and physical exam she was seen by social work several times to complete a psychosocial assessment and for discharge planning purposes. Mental status exam: The patient is a tall -Tajik female appearing her stated age. She is dressed in her own clothing hygiene grooming are adequate. Eye contact is appropriate. Speech is fluent spontaneous nonpressured. She demonstrates no tangential thinking loose associations or flight of ideas. Thought process is linear. She reports no suicidal ideation intent or plan now homicidal ideation intent or plan. She is reporting no auditory or visual hallucinations specifically she denies having any command auditory hallucinations. She demonstrates no verbal or physical aggressiveness. She demonstrates no involuntary repetitive movements. Insight and judgment have improved. She is oriented to person place and date. She is able to demonstrate more appropriate range of affect. Impressions 1. Bipolar 1 disorder most recent depressed versus schizoaffective disorder bipolar type, alcohol use disorder, cannabis use disorder, cocaine use disorder 2. Cluster B traits 3. Asthma, GERD Plan: The patient will be discharged mental health unit today and she will transition to [facility] for inpatient chemical dependency treatment. She will continue on Depakote ER 1000 mg at bedtime Neurontin 300 mg daily 600 mg in the evening Seroquel 300 mg in the evening Cogentin 1 mg twice daily. She is instructed to abstain from any use of alcohol marijuana or any illicit drug as the substances well elevate her safety risk. She is agreeable to attend inpatient chemical dependency treatment at [facility]. There is no imminent safety risk she is appropriate for transition of care. She is instructed to return to the hospitals any acute safety concerns. Patient Condition at Discharge: Stable Plan - Discharge Summary New Discharge Prescriptions: New Nicotine 14Mg/24Hr Patch [Habitrol] 1 patch TRANSDERM DAILY #12 patch Pantoprazole [Protonix] 40 mg PO DAILY@0730 #30 tablet. QUEtiapine FUMARATE [SEROquel] 300 mg PO HS #30 tab Continue Ibuprofen [Motrin] 800 mg PO DAILY PRN PRN Reason: Pain Albuterol Sulfate [Proair Hfa] 2 puff INHALATION RT-Q6H PRN #1 hfa.aer.ad PRN Reason: Shortness Of Breath Benztropine Mesylate [Cogentin] 1 mg PO BID #60 tab Divalproex ER [Depakote ER] 1,000 mg PO HS #60 tab.er.24h Gabapentin [Neurontin] 300 mg PO DAILY #30 cap Gabapentin [Neurontin] 600 mg PO HS #60 cap Oxybutynin Xl [Ditropan XL] 5 mg PO HS #30 tab.er.24 Ranitidine HCl [Zantac] 150 mg PO BID #60 tablet Discontinued Omeprazole [PriLOSEC] 20 mg PO AC-BID Ergocalciferol (Vitamin D2) [Vitamin D2] 50,000 unit PO Q30D QUEtiapine [SEROquel] 200 mg PO HS Ziprasidone [Geodon] 60 mg PO BID Naproxen 500 mg PO BID PRN PRN Reason: Pain Discharge Medication List Ibuprofen [Motrin] 800 mg PO DAILY PRN 02/27/17 [History] Albuterol Sulfate [Proair Hfa] 2 puff INHALATION RT-Q6H PRN #1 hfa.aer.ad [Rx] Benztropine Mesylate [Cogentin] 1 mg PO BID #60 tab 10/17/18 [Rx] Divalproex ER [Depakote ER] 1,000 mg PO HS #60 tab.er.24h 10/17/18 [Rx] Gabapentin [Neurontin] 300 mg PO DAILY #30 cap 10/17/18 [Rx] Gabapentin [Neurontin] 600 mg PO HS #60 cap 10/17/18 [Rx] Nicotine 14Mg/24Hr Patch [Habitrol] 1 patch TRANSDERM DAILY #12 patch 10/17/18 [ Rx] Oxybutynin Xl [Ditropan XL] 5 mg PO HS #30 tab.er.24 10/17/18 [Rx] Pantoprazole [Protonix] 40 mg PO DAILY@0730 #30 tablet. 10/17/18 [Rx] QUEtiapine FUMARATE [SEROquel] 300 mg PO HS #30 tab 10/17/18 [Rx] Ranitidine HCl [Zantac] 150 mg PO BID #60 tablet 10/17/18 [Rx] Follow up Appointment(s)/Referral(s): intake,intake [Other] - 1 Week Cleo Dixon DO [Primary Care Provider] - 1-2 days
== END 2018-10-17 10:40 | DRG 885 ==
LOC: EC 17:03 → 3MHU 22:38
PROVIDERS: ADMIT Psychiatry & Neurology Psychiatry; ATTEND Psychiatry & Neurology Psychiatry
DX: F31.30 Bipolar disorder, current episode depressed, mild or moderate severity, unspecified (principal); F05 Delirium due to known physiological condition; F25.0 Schizoaffective disorder, bipolar type; F60.89 Other specific personality disorders; F41.9 Anxiety disorder, unspecified; F10.10 Alcohol abuse, uncomplicated; F12.20 Cannabis dependence, uncomplicated; F14.10 Cocaine abuse, uncomplicated; J45.909 Unspecified asthma, uncomplicated; K21.9 Gastro-esophageal reflux disease without esophagitis; M54.9 Dorsalgia, unspecified; R42 Dizziness and giddiness; F17.200 Nicotine dependence, unspecified, uncomplicated; Z71.6 Tobacco abuse counseling; Z79.899 Other long term (current) drug therapy; Z86.14 Personal history of Methicillin resistant Staphylococcus aureus infection; Z87.81 Personal history of (healed) traumatic fracture; Z82.49 Family history of ischemic heart disease and other diseases of the circulatory system; Z80.9 Family history of malignant neoplasm, unspecified
CPT/HCPCS: 80053; 80061; 80164; 80306; 82075; 83036; 84443; 84450; 84460; 85025; 94640; 99285

== ENCOUNTER → 2018-12-08 | Outpatient (CLI) | payer MEDICARE, MEDICAID ==
[2018-12-08 13:23] LABS: Basophils # (A) 0.1 k/uL (0-0.2); Basophils % (A) 1 %; Eosinophils # (A) 0.2 k/uL (0-0.7); Eosinophils % (A) 2 %; Lymphocytes # (A) 2.3 k/uL (1.0-4.8); Lymphocytes % (A) 31 %; MCH 30.7 pg (25.0-35.0); MCHC 32.6 g/dL (31.0-37.0); MCV 94.3 fL (80.0-100.0); Mean Platelet Volume 8.2; Monocytes # (A) 0.4 k/uL (0-1.0); Monocytes % (A) 5 %; Neutrophils # (A) 4.4 k/uL (1.3-7.7); Neutrophils % (A) 59 %; Platelet Count 231 k/uL (150-450); RBC 4.24 m/uL (3.80-5.40); RDW 13.8 % (11.5-15.5); WBC 7.4 k/uL (3.8-10.6)
[2018-12-08 19:50] LABS: Albumin 4.3 g/dL (3.80-4.90); Albumin/Globulin Ratio 2.05 (1.60-3.17); Anion Gap 8.8 mmol/L (4.00-12.00); Calcium 9.7 mg/dL (8.7-10.3); Carbon Dioxide 24.2 mmol/L (21.6-31.8); Globulin 2.1 g/dL (1.6-3.3); Potassium 4.5 mmol/L (3.5-5.5); Total Bilirubin 0.8 mg/dL (0.3-1.2); Total Protein 6.4 g/dL (6.2-8.2)
[2018-12-08 19:56] LABS: Valproic Acid (Depakene) 65.4 ug/mL (50.0-100.0)
== END | disposition home or self-care (01) ==
LOC: LABWHC1 12:28
PROVIDERS: ATTEND Physician Assistant
DX: F25.0 Schizoaffective disorder, bipolar type (principal); Z79.899 Other long term (current) drug therapy
CPT/HCPCS: 36415; 80053; 80061; 80164; 80299; 85025

== ENCOUNTER → 2019-03-23 | Outpatient (CLI) | payer MEDICARE, OTHER ==
--- NOTE | 2019-03-27 09:44 | MM ---
Reason for exam: screening (asymptomatic). Last mammogram was performed 13 years and 6 months ago. History: Patient is nulliparous. Physical Findings: A clinical breast exam by your physician is recommended on an annual basis and results should be correlated with mammographic findings. MG Screening Mammo w CAD Bilateral CC and MLO view(s) were taken. Prior study comparison: November 29, 2015, mammogram. April 04, 2012, mammogram. September 24, 2005, workup left diagnostic mammogram. September 09, 2005, bilateral screening mammogram w/CAD. The breast tissue is heterogeneously dense. This may lower the sensitivity of mammography. No suspicious abnormality. No significant changes when compared with prior studies. ASSESSMENT: Negative, BI-RAD 1 RECOMMENDATION: Routine screening mammogram of both breasts in 1 year.
== END | disposition home or self-care (01) ==
LOC: RADMAMWWP 14:31
PROVIDERS: ATTEND Family Medicine
DX: Z12.31 Encounter for screening mammogram for malignant neoplasm of breast (principal)
CPT/HCPCS: 77067

== ENCOUNTER → 2019-04-04 | Outpatient (CLI) | payer MEDICARE, OTHER ==
[2019-04-04 16:45] LABS: Basophils % (A) 1 %; Eosinophils # (A) 0.1 k/uL (0-0.7); Eosinophils % (A) 2 %; HCT 38.6 % (34.0-46.0); HGB 12.7 gm/dL (11.4-16.0); Lymphocytes # (A) 2.3 k/uL (1.0-4.8); Lymphocytes % (A) 41 %; MCH 30.9 pg (25.0-35.0); MCV 93.5 fL (80.0-100.0); Monocytes # (A) 0.3 k/uL (0-1.0); Monocytes % (A) 6 %; Neutrophils # (A) 2.8 k/uL (1.3-7.7); Neutrophils % (A) 49 %; Platelet Count 241 k/uL (150-450); RBC 4.12 m/uL (3.80-5.40); RDW 14.1 % (11.5-15.5); WBC 5.7 k/uL (3.8-10.6)
[2019-04-05 01:05] LABS: Valproic Acid (Depakene) 60.3 ug/mL (50.0-100.0)
[2019-04-05 01:20] LABS: African American GFR (CKD) 92.7 (60.0-200.0); Albumin 4.2 g/dL (3.80-4.90); Albumin/Globulin Ratio 2.1 (1.60-3.17); Anion Gap 8.5 mmol/L (4.00-12.00); BUN/Creat Ratio 18.89 Ratio (12.00-20.00); Calcium 9.4 mg/dL (8.7-10.3); Carbon Dioxide 18.5 mmol/L (21.6-31.8); Chol/HDL Ratio 3.37; LDL Cholesterol,Calculated 104.6 mg/dL (0.0-131.0); Potassium 4.2 mmol/L (3.5-5.5); Total Bilirubin 0.5 mg/dL (0.2-1.2); Total Protein 6.2 g/dL (6.2-8.2); VLDL Calculation 42.4 mg/dL (5.00-40.00)
== END | disposition home or self-care (01) ==
LOC: LABWHC1 16:04
PROVIDERS: ATTEND Family Medicine
DX: Z51.81 Encounter for therapeutic drug level monitoring (principal); Z79.899 Other long term (current) drug therapy
CPT/HCPCS: 36415; 80053; 80061; 80164; 84439; 84443; 85025

== ENCOUNTER 2020-05-06 12:34 | Emergency (ER) | payer MEDICARE, OTHER ==
[2020-05-06 13:00] VITALS: TEMP 98
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
--- NOTE | 2020-05-06 13:28 | XR ---
EXAMINATION TYPE: XR ankle complete RT DATE OF EXAM: 05/06/2020 COMPARISON: NONE HISTORY: Pain FINDINGS: Three views of the ankle demonstrate postsurgical changes. Mild narrowing of the lateral margin of th e ankle mortise appears chronic. Ossified density adjacent to the medial malleolus also appears to be chronic. There is soft tissue edema. Calcaneal spur noted. Corticated density above the dorsal surfa ce of the talus appears chronic. IMPRESSION: 1. No definite acute fracture or dislocation, if symptoms persist follow-up study in 7 to 10 days wou ld be suggested. 2. Postsurgical changes.
[2020-05-06] MEDS ORDERED: ACET/COD 300 MG/30 MG STARTER PACK 6 TAB BTL PO STA (13:36)
[2020-05-06 13:46] VITALS: BP 133/88; PULSE 92; RESP 16
== END 2020-05-06 13:49 | disposition home or self-care (01) ==
LOC: EC 12:34
DX: S93.401A Sprain of unspecified ligament of right ankle, initial encounter (principal); F17.200 Nicotine dependence, unspecified, uncomplicated; V18.4XXA Pedal cycle driver injured in noncollision transport accident in traffic accident, initial encounter; Y93.55 Activity, bike riding
CPT/HCPCS: 99283

== ENCOUNTER 2020-07-20 23:53 | Emergency (ER) | payer MEDICARE, OTHER ==
--- NOTE | 2020-07-20 23:59 | ED ---
Overdose HPI - General Stated Complaint: Overdose Time Seen by Provider: 07/20/20 23:55 Source: RN notes reviewed, old records reviewed Limitations: no limitations - History of Present Illness Initial Comments: 40-year-old female who did present after allegedly heroin overdose. Patient is brought in by PD as well as EMS for evaluation she remains alert awake and responsive here in the ER. Patient denies homicidal or suicidal thoughts MD Complaint: intentional overdose, accidental overdose -: unknown Intent: unwilling to say How Overdose Was Discovered: called 911 Context: Intentional Overdose: relationship problems Context: Accidental Overdose: wanted to get high Associated Symptoms: depression Treatments Prior to Arrival: none - Related Data Home Medications Medication Instructions Recorded Confirmed Ibuprofen [Motrin] 800 mg PO DAILY PRN 02/27/17 10/16/18 Previous Rx's Medication Instructions Recorded Albuterol Sulfate [Proair Hfa] 2 puff INHALATION RT-Q6H PRN #1 10/17/18 hfa.aer.ad Benztropine Mesylate [Cogentin] 1 mg PO BID #60 tab 10/17/18 Divalproex ER [Depakote ER] 1,000 mg PO HS #60 tab.er.24h 10/17/18 Gabapentin [Neurontin] 300 mg PO DAILY #30 cap 10/17/18 Gabapentin [Neurontin] 600 mg PO HS #60 cap 10/17/18 Nicotine 14Mg/24Hr Patch [Habitrol] 1 patch TRANSDERM DAILY #12 patch 10/17/18 Oxybutynin Xl [Ditropan XL] 5 mg PO HS #30 tab.er.24 10/17/18 Pantoprazole [Protonix] 40 mg PO DAILY@0730 #30 tablet.dr 10/17/18 QUEtiapine FUMARATE [SEROquel] 300 mg PO HS #30 tab 10/17/18 Ranitidine HCl [Zantac] 150 mg PO BID #60 tablet 10/17/18 Ibuprofen [Motrin] 600 mg PO Q8HR PRN #20 tab 05/06/20 Allergies Allergy/AdvReac Type Severity Reaction Status Date / Time No Known Allergies Allergy Verified 07/21/20 00:02 Review of Systems ROS Statement: Those systems with pertinent positive or pertinent negative responses have been documented in the HPI. ROS Other: All systems not noted in ROS Statement are negative. Past Medical History Past Medical History: Asthma, GERD/Reflux Additional Past Medical History / Comment(s): Occasional back pain, past tongue laceration. History of Any Multi-Drug Resistant Organisms: MRSA Date of last positivie culture/infection: 2014 MDRO Source:: finger Past Surgical History: Orthopedic Surgery Additional Past Surgical History / Comment(s): R inguinal hernia repair, R shoulder aniya removal per spouse, R ankle fracture Past Anesthesia/Blood Transfusion Reactions: No Reported Reaction Past Psychological History: Anxiety, Bipolar, Depression, Schizoaffective Disorder Smoking Status: Current every day smoker Past Alcohol Use History: Occasional Past Drug Use History: None Reported - Past Family History Mother Family Medical History: Hypertension Father Family Medical History: Cancer Additional Family Medical History / Comment(s): Unknown type of cancer. General Exam General appearance: alert, in no apparent distress Head exam: Present: atraumatic, normocephalic, normal inspection Eye exam: Present: normal appearance, PERRL, EOMI. Absent: scleral icterus, conjunctival injection, periorbital swelling ENT exam: Present: normal exam, mucous membranes moist Neck exam: Present: normal inspection. Absent: tenderness, meningismus, lymphadenopathy Respiratory exam: Present: normal lung sounds bilaterally. Absent: respiratory distress, wheezes, rales, rhonchi, stridor Cardiovascular Exam: Present: regular rate, normal rhythm, normal heart sounds. Absent: systolic murmur, diastolic murmur, rubs, gallop, clicks GI/Abdominal exam: Present: soft, normal bowel sounds. Absent: distended, tenderness, guarding, rebound, rigid Extremities exam: Present: normal inspection, full ROM, normal capillary refill. Absent: tenderness, pedal edema, joint swelling, calf tenderness Back exam: Present: normal inspection Neurological exam: Present: alert, oriented X3, CN II-XII intact Psychiatric exam: Present: normal affect, normal mood Skin exam: Present: warm, dry, intact, normal color. Absent: rash Course Vital Signs 07/20/20 07/21/20 23:55 00:33 Temperature 98.0 F Pulse Rate 85 Respiratory 18 Rate Blood Pressure 138/87 O2 Sat by Pulse 98 Oximetry - Reevaluation(s) Reevaluation #1: 07/21/20 01:11 Medical record is reviewed Reevaluation #2: 07/21/20 01:11 Patient remains awake and alert here in the ER Reevaluation #3: 07/21/20 01:11 Patient still spoken with regarding opiate use. Medical Decision Making - Medical Decision Making 40 female to the ER for evaluation patient Dese for evaluation regards to heroin overdose. Respond Narcan. No complaints throughout ER stay can be discharged Disposition Clinical Impression: Bipolar 1 disorder, depressed, Delirium due to general medical condition Disposition: HOME SELF-CARE Condition: Fair Instructions (If sedation given, give patient instructions): Adult Overdose (ED) Is patient prescribed a controlled substance at d/c from ED?: No Referrals: Cleo Dixon DO [Primary Care Provider] - 1-2 days
[2020-07-21 00:01] VITALS: RESP 18
[2020-07-21 01:18] VITALS: BP 139/89; PULSE 89; TEMP 98.1
== END 2020-07-21 01:18 | disposition home or self-care (01) ==
LOC: EC 23:53
DX: F05 Delirium due to known physiological condition (principal); F31.9 Bipolar disorder, unspecified; T40.1X1A Poisoning by heroin, accidental (unintentional), initial encounter; F17.200 Nicotine dependence, unspecified, uncomplicated; Z86.14 Personal history of Methicillin resistant Staphylococcus aureus infection
CPT/HCPCS: 99284

== ENCOUNTER 2021-02-15 22:59 | Emergency (ER) | payer MEDICARE, OTHER ==
[2021-02-15 23:06] VITALS: TEMP 98
--- NOTE | 2021-02-15 23:15 | ED ---
Overdose HPI - General Chief Complaint: Overdose Stated Complaint: Overdose Time Seen by Provider: 02/15/21 23:05 Source: patient, police, EMS Mode of arrival: EMS Limitations: no limitations - History of Present Illness Initial Comments: Patient is a 40-year-old woman who presents after she states she accidentally overdosed on heroin. The patient's head used it and then was feeling funny so she did self administer Narcan. Patient's denying complaints on arrival. MD Complaint: accidental overdose -: minutes(s) How Overdose Was Discovered: family/friend present at time Context: Accidental Overdose: wanted to get high Treatments Prior to Arrival: narcan - Related Data Home Medications Medication Instructions Recorded Confirmed Ibuprofen [Motrin] 800 mg PO DAILY PRN 02/27/17 10/16/18 Previous Rx's Medication Instructions Recorded Albuterol Sulfate [Proair Hfa] 2 puff INHALATION RT-Q6H PRN #1 10/17/18 hfa.aer.ad Benztropine Mesylate [Cogentin] 1 mg PO BID #60 tab 10/17/18 Divalproex ER [Depakote ER] 1,000 mg PO HS #60 tab.er.24h 10/17/18 Gabapentin [Neurontin] 300 mg PO DAILY #30 cap 10/17/18 Gabapentin [Neurontin] 600 mg PO HS #60 cap 10/17/18 Nicotine 14Mg/24Hr Patch [Habitrol] 1 patch TRANSDERM DAILY #12 patch 10/17/18 Oxybutynin Xl [Ditropan XL] 5 mg PO HS #30 tab.er.24 10/17/18 Pantoprazole [Protonix] 40 mg PO DAILY@0730 #30 tablet.dr 10/17/18 QUEtiapine FUMARATE [SEROquel] 300 mg PO HS #30 tab 10/17/18 Ranitidine HCl [Zantac] 150 mg PO BID #60 tablet 10/17/18 Ibuprofen [Motrin] 600 mg PO Q8HR PRN #20 tab 05/06/20 Allergies Allergy/AdvReac Type Severity Reaction Status Date / Time No Known Allergies Allergy Verified 02/15/21 23:06 Review of Systems ROS Statement: Those systems with pertinent positive or pertinent negative responses have been documented in the HPI. ROS Other: All systems not noted in ROS Statement are negative. Constitutional: Denies: fever, chills Respiratory: Denies: cough, dyspnea Cardiovascular: Denies: chest pain, palpitations, edema Gastrointestinal: Denies: abdominal pain, nausea, vomiting, diarrhea Genitourinary: Denies: dysuria, hematuria Musculoskeletal: Denies: back pain Skin: Denies: rash Neurological: Denies: headache, weakness Psychiatric: Denies: depression, homicidal thoughts, suicidal thoughts Past Medical History Past Medical History: Asthma, GERD/Reflux Additional Past Medical History / Comment(s): Occasional back pain, past tongue laceration. History of Any Multi-Drug Resistant Organisms: MRSA Date of last positivie culture/infection: 2014 MDRO Source:: finger Past Surgical History: Orthopedic Surgery Additional Past Surgical History / Comment(s): R inguinal hernia repair, R shoulder aniya removal per spouse, R ankle fracture Past Anesthesia/Blood Transfusion Reactions: No Reported Reaction Past Psychological History: Anxiety, Bipolar, Depression, Schizoaffective Disorder Smoking Status: Current every day smoker Past Alcohol Use History: Occasional Past Drug Use History: Heroin, IV Drug Use, Marijuana, Prescription Drug Abuse - Past Family History Mother Family Medical History: Hypertension Father Family Medical History: Cancer Additional Family Medical History / Comment(s): Unknown type of cancer. General Exam Limitations: no limitations General appearance: alert, in no apparent distress Head exam: Present: atraumatic, normocephalic Eye exam: Present: normal appearance. Absent: scleral icterus, conjunctival injection Neck exam: Present: normal inspection Respiratory exam: Present: normal lung sounds bilaterally. Absent: respiratory distress, wheezes, rales, rhonchi, stridor Cardiovascular Exam: Present: regular rate, normal rhythm, normal heart sounds. Absent: systolic murmur, diastolic murmur, rubs, gallop GI/Abdominal exam: Present: soft. Absent: distended, tenderness, guarding, rebound, rigid, mass Extremities exam: Present: normal inspection, normal capillary refill. Absent: pedal edema, calf tenderness Back exam: Present: normal inspection. Absent: CVA tenderness (R), CVA tenderness (L) Neurological exam: Present: alert, oriented X3 Psychiatric exam: Present: normal affect, normal mood. Absent: depressed, suicidal ideation Skin exam: Present: warm, dry, intact, normal color. Absent: rash Course Vital Signs 07/03/21 07/04/21 23:01 01:18 Temperature 98.0 F Pulse Rate 86 80 Respiratory 16 18 Rate Blood Pressure 127/92 110/79 O2 Sat by Pulse 98 98 Oximetry Disposition Clinical Impression: Accidental drug overdose Disposition: HOME SELF-CARE Condition: Good Instructions (If sedation given, give patient instructions): Adult Overdose (ED) Is patient prescribed a controlled substance at d/c from ED?: No Referrals: Cleo Dixon DO [Primary Care Provider] - 1-2 days
[2021-02-16 01:18] VITALS: BP 110/79; PULSE 80; RESP 18
== END 2021-02-16 02:30 | disposition home or self-care (01) ==
LOC: EC 22:59
DX: T40.1X1A Poisoning by heroin, accidental (unintentional), initial encounter (principal); F25.9 Schizoaffective disorder, unspecified; F12.90 Cannabis use, unspecified, uncomplicated; J45.909 Unspecified asthma, uncomplicated; K21.9 Gastro-esophageal reflux disease without esophagitis; F17.200 Nicotine dependence, unspecified, uncomplicated
CPT/HCPCS: 99284

== ENCOUNTER → 2021-05-05 | Outpatient (CLI) | payer MEDICARE, OTHER ==
--- NOTE | 2021-05-05 14:56 | MM ---
Reason for exam: clinical finding. Last mammogram was performed 1 year ago. History: Patient is nulliparous. Physical Findings: Nurse did not find any significant physical abnormalities on exam. MG 3D Diag Mammo W/Cad THERESE Bilateral CC and MLO view(s) were taken. LM, CC with magnification, and MLO with magnification view(s) were taken of the right breast. Prior study comparison: May 02, 2020, bilateral MG screening mammo w CAD. March 23, 2019, bilateral MG screening mammo w CAD. The breast tissue is heterogeneously dense. This may lower the sensitivity of mammography. Finding: There are indeterminate grouped/clustered microcalcifications in the upper outer quadrant of the right breast, biopsy recommended. There is no discrete abnormality including area of concern. These results were verbally communicated with the patient and result sheet given to the patient on 05/05/21. ASSESSMENT: Suspicious, BI-RAD 4 RECOMMENDATION: Stereotactic core biopsy of the right breast. Called Dr. Dixon's office with mammographic findings and has scheduled an appointment for the patient for 05/30/21 at 9:[address] Kumar. Biopsy scheduled for 05/23/21 at 8:00. PRELIMINARY REPORT CALLED AND FAXED TO DR. KUMAR ON 05/05/21.
== END | disposition home or self-care (01) ==
LOC: RADMAMWWP 12:01
PROVIDERS: ATTEND Family Medicine
DX: R92.0 Mammographic microcalcification found on diagnostic imaging of breast (principal); R92.2 Inconclusive mammogram
CPT/HCPCS: 77066; G0279; 77062

== ENCOUNTER → 2021-05-23 | Day surgery (SDC) | payer MEDICARE, OTHER ==
[2021-05-23 07:12] VITALS: RESP 16
[2021-05-23 08:52] VITALS: BP 118/77; PULSE 71; TEMP 98
--- NOTE | 2021-05-23 08:58 | P.OP ---
Date of Procedure: 05/23/21 Preoperative Diagnosis: Microcalcifications right breast upper outer quadrant Postoperative Diagnosis: Same Procedure(s) Performed: Stereotactic core biopsy right breast Anesthesia: local Surgeon: Orly Kumar Pathology: other (Breast tissue/microcalcifications of concern noted and specimen) Condition: stable Disposition: same day Indications for Procedure: Microcalcifications of concern right breast upper outer quadrant Operative Findings: Radiographic of specimen reveals microcalcifications of concern Description of Procedure: Yina is a 42-year-old female who was noted to have microcalcifications of concern in the upper outer quadrant of the right breast on a mammogram performed on . A stereotactic core biopsy was recommended. The patient was examined. The right breast was noted to be larger than the left although no palpable lesions of concern were noted in either breast nor in the axillas. Risk and benefits of the procedure were discussed with the patient. Risks include but are not limited to bleeding, infection, reaction to the anesthetic. She understood that if the lesion could not be targeted the procedure will be canceled. If the pathology was felt to be discordant, atypical, or malignant surgery would be needed. Alternatives such as watchful waiting or open biopsy were discussed but not recommended. The patient was taken to the stereotactic core biopsy room. She was positioned prone on the lo-rad table. A systems technologist film was obtained. A lateral to medial approach was utilized. The lesion of concern was identified. The skin was prepped using Betadine. 20 mL of 1% lidocaine were used to anesthetize the area of concern. A 9-gauge vacuum-assisted core rotating biopsy needle was driven to the correct coordinates. A prefire film was taken. This showed the needle to be in the correct location. The needle was fired. The needle was noted to be in the correct location. 12 core specimens were obtained. Radiograph of the specimen revealed microcalcifications of concern had been sampled. A secure aniya Top-Hat clip was placed. This was noted to be in the correct location. The specimen was sent to pathology. The patient will follow-up with Dr. Wood next week. She tolerated the procedure without difficulty.
--- NOTE | 2021-05-27 10:54 | MM ---
Patient Name: Yina Borja Date of : 76 Patient Status: Surgical Day Care Attending Provider: Orly Kumar Date: 05/23/21 08:52 Initialization Date: 05/23/21 08:52 Date of Procedure: 05/23/21 Preoperative Diagnosis: Microcalcifications right breast upper outer quadrant Postoperative Diagnosis: Same Procedure(s) Performed: Stereotactic core biopsy right breast Anesthesia: local Surgeon: Orly Kumar Pathology: other (Breast tissue/microcalcifications of concern noted and specimen) Condition: stable Disposition: same day Indications for Procedure: Microcalcifications of concern right breast upper outer quadrant Operative Findings: Radiographic of specimen reveals microcalcifications of concern Description of Procedure: Yina is a 42-year-old female who was noted to have microcalcifications of concern in the upper outer quadrant of the right breast on a mammogram performed on . A stereotactic core biopsy was recommended. The patient was examined. The right breast was noted to be larger than the left although no palpable lesions of concern were noted in either breast nor in the axillas. Risk and benefits of the procedure were discussed with the patient. Risks include but are not limited to bleeding, infection, reaction to the anesthetic. She understood that if the lesion could not be targeted the procedure will be canceled. If the pathology was felt to be discordant, atypical, or malignant surgery would be needed. Alternatives such as watchful waiting or open biopsy were discussed but not recommended. The patient was taken to the stereotactic core biopsy room. She was positioned prone on the lo-rad table. A clinic nurse film was obtained. A lateral to medial approach was utilized. The lesion of concern was identified. The skin was prepped using Betadine. 20 mL of 1% lidocaine were used to anesthetize the area of concern. A 9-gauge vacuum-assisted core rotating biopsy needle was driven to the correct coordinates. A prefire film was taken. This showed the needle to be in the correct location. The needle was fired. The needle was noted to be in the correct location. 12 core specimens were obtained. Radiograph of the specimen revealed microcalcifications of concern had been sampled. A secure aniya Top-Hat clip was placed. This was noted to be in the correct location. The specimen was sent to pathology. The patient will follow-up with Dr. Wood next week. She tolerated the procedure without difficulty. Pathology Results: Benign RIGHT BREAST, CORE BIOPSY: Fibrocystic change with focal microcalcification, apocrine metaplasia, columnar cell change, focal sclerosing adenosis and focal fibroadenomatoid stromal hyperplasia. Recommendation Follow up mammogram of the right breast in 6 months. RANDA
== END ==
LOC: RADMAMWWP 06:50
PROVIDERS: ATTEND Surgery
DX: N60.11 Diffuse cystic mastopathy of right breast (principal); R92.0 Mammographic microcalcification found on diagnostic imaging of breast; N60.81 Other benign mammary dysplasias of right breast; N62 Hypertrophy of breast; R92.8 Other abnormal and inconclusive findings on diagnostic imaging of breast
CPT/HCPCS: 88305; 19081; A4648; J2001

== ENCOUNTER → 2021-05-23 | Outpatient (CLI) | payer MEDICARE, OTHER ==
[2021-05-23 07:27] VITALS: BP 123/88; PULSE 79; RESP 18; TEMP 98.4
--- NOTE | 2021-05-23 08:09 | P.GSHP ---
History of Present Illness H&P Date: 05/23/21 Chief Complaint: Abnormal right breast mammogram Crystal is a 41 year old female seen by Yasmin Casas about 3 months ago and she recommended a mammogram. The mammogram revealed an area of microcalcification in the right breast in the upper-outer quadrant. The patient does not feel anything of concern in either breast. She is not complaining of any nipple discharge or skin changes. Caffeine: occasional nicotine: 6 cigarettes/day since chocolate: occasional Family History: father: prostate cancer Hormonal History: Menarche: 12 Go BCP; never periods regular, finished several days ago Surgical History: Hernia Ankle Hematoma right shoulder and lower abdomen a birthmark Medical History: none Social History: Nicotine: 6 cigarettes per day since Alcohol: Negative Drugs: Marijuana every other day, every hour - Constitutional Constitutional: Denies chills, Denies fever - EENT Eyes: denies blurred vision, denies pain Ears: bilateral: tinnitus, deny: decreased hearing Ears, nose, mouth and throat: Denies headache, Denies sore throat - Breasts Breasts: bilateral: as per HPI - Cardiovascular Cardiovascular: Denies chest pain, Denies shortness of breath - Respiratory Respiratory: Denies cough, Denies 7 - Gastrointestinal Gastrointestinal: Reports constipation, Denies abdominal pain, Denies diarrhea, Denies nausea, Denies vomiting - Genitourinary (Female) Genitourinary: Denies dysuria, Denies hematuria - Menstruation Menstruation: Reports period normal - Musculoskeletal Musculoskeletal: Denies myalgias - Integumentary Integumentary: Denies pruritus, Denies rash - Neurological Neurological: Denies numbness, Denies weakness - Psychiatric Psychiatric: Reports anxiety, Denies depression - Endocrine Endocrine: Denies fatigue, Denies weight change - Hematologic/Lymphatic Comment: none - Allergic/Immunologic Allergic/Immunologic: Reports as per HPI Past Medical History Past Medical History: Asthma, GERD/Reflux Additional Past Medical History / Comment(s): Occasional back pain, past tongue laceration. History of Any Multi-Drug Resistant Organisms: MRSA Date of last positivie culture/infection: 2014 MDRO Source:: finger Past Surgical History: Orthopedic Surgery Additional Past Surgical History / Comment(s): R inguinal hernia repair, R shoulder aniya removal per spouse, R ankle fracture Past Anesthesia/Blood Transfusion Reactions: No Reported Reaction Past Psychological History: Anxiety, Bipolar, Depression, Schizoaffective Disorder Additional Psychological History / Comment(s): Pt resides with her spouse, Flor. She has hx of previous suicide attempts. Spouse believes this may have been another suicide attempt. Pt goes to [facility]. She and her spouse have marital problems. She quit her job at [employer] 2 months ago. Smoking Status: Current every day smoker Past Alcohol Use History: Occasional Additional Past Alcohol Use History / Comment(s): Spouse states that pt has never had a drinking problem, never drank on a daily basis but if pt decided she was going to get drunk, she really got drunk. Spouse states that pt uses crack cocaine/marijuana and was using alot until recently. She is supposedly quiting drug use but spouse states she took drugs 2 weeks ago. Pt started smoking in 1991 and is a ppd smoker. Past Drug Use History: Heroin, IV Drug Use, Marijuana, Prescription Drug Abuse Additional Drug Use History / Comment(s): Pt. states she abuses crack cocaine and states she takes "a hit" but won't state how often. Pt. denies using drugs "for 4 weeks." - Past Family History Mother Family Medical History: Hypertension Father Family Medical History: Cancer Additional Family Medical History / Comment(s): Unknown type of cancer. Medications and Allergies Home Medications Medication Instructions Recorded Confirmed Type Ibuprofen [Motrin] 800 mg PO DAILY PRN 02/27/17 05/23/21 History Albuterol Sulfate [Proair Hfa] 2 puff INHALATION RT-Q6H PRN #1 10/17/18 05/23/21 Rx hfa.[email or web address].ad Divalproex ER [Depakote ER] 1,000 mg PO HS #60 tab.er.24h 10/17/18 05/23/21 Rx Gabapentin [Neurontin] 300 mg PO DAILY #30 cap 10/17/18 05/23/21 Rx Gabapentin [Neurontin] 600 mg PO HS #60 cap 10/17/18 05/23/21 Rx Nicotine 14Mg/24Hr Patch [Habitrol] 1 patch TRANSDERM DAILY #12 patch 10/17/18 05/23/21 Rx Ibuprofen [Motrin] 600 mg PO Q8HR PRN #20 tab 05/06/20 05/23/21 Rx Allergies Allergy/AdvReac Type Severity Reaction Status Date / Time No Known Allergies Allergy Verified 05/23/21 07:20 Surgical - Exam Vital Signs Temp Pulse Resp BP 98.4 F 79 18 123/88 05/23/21 07:21 05/23/21 07:21 05/23/21 07:21 05/23/21 07:21 BMI 30.6 - General well developed, well nourished, moderate distress - Eyes PERRL - ENT no hearing loss - Neck no masses, trachea midline - Respiratory normal respiratory effort, clear to auscultation - Cardiovascular Rhythm: regular Heart Sounds: normal: S1, S2 - Abdomen Abdomen: soft, non tender, no guarding, no rigid, no rebound - Integumentary normal turgor - Neurologic no disoriented, no combative - Musculoskeletal normal gait - Psychiatric oriented to time, oriented to person, oriented to place, speech is normal, memory intact Breast Exam: BRA: 40C inspection: Right breast larger than left breast, bilateral grade 3 ptosis Palpation: Right breast: Multi-positional exam fibrocystic changes, no dominant masses or nodules of concern Right axilla: No adenopathy of concern Left breast: Multi-positional exam fibrocystic changes no dominant masses or nodules of concern Left axilla: No adenopathy of concern Results Mammogram results microcalcifications of concern right breast upper outer quadrant Assessment and Plan Assessment: Impression: 1. Microcalcifications of concern right breast upper outer quadrant 2. Asymmetry of the breast 3. Fibrocystic breast changes Plan: 1. Stereotactic core biopsy right breast Risks and benefits discussed with the patient. She understands and wishes to proceed. Risks include but are not limited to bleeding, infection, reaction to the anesthetic. If we're unable to target the lesion then open biopsy could be recommended with needle localization. If the results were discordant or atypical/malignant then further surgery would be needed. Alternative such as watchful waiting or open biopsy at this time are discussed but not recommended CC: Yasmin Casas SENIOR ACCOUNT EXECUTIVE
== END ==
LOC: WWCWWP 06:49
PROVIDERS: ATTEND Surgery
DX: N60.11 Diffuse cystic mastopathy of right breast (principal); N60.12 Diffuse cystic mastopathy of left breast; R92.0 Mammographic microcalcification found on diagnostic imaging of breast; N64.89 Other specified disorders of breast; F17.210 Nicotine dependence, cigarettes, uncomplicated; J45.909 Unspecified asthma, uncomplicated; Z79.899 Other long term (current) drug therapy; F41.9 Anxiety disorder, unspecified; F31.9 Bipolar disorder, unspecified; F25.9 Schizoaffective disorder, unspecified

== ENCOUNTER → 2021-05-30 | Outpatient (CLI) | payer MEDICARE, OTHER ==
[2021-05-30 08:36] VITALS: PULSE 93; RESP 12; TEMP 97.9
--- NOTE | 2021-05-30 08:50 | P.PN ---
Subjective Progress Note Date: 05/30/21 Principal diagnosis: Fibrocystic breast changes The patient is a 41-year-old white female who underwent a stereotactic core biopsy of the right breast on . Pathology was benign this is felt to be concordant. She tolerated the procedure without difficulty. Medical examination: Biopsy site clean and dry no evidence of infection Impression: Patient pathology fibrocystic change with focal microcalcification, apocrine metaplasia, columnar cell change, focal sclerosing adenosis and focal fibroadenomatoid stromal hyperplasia Plan: Repeat right breast mammogram in 6 months with physician exam at that time CC: Yasmin Casas Objective - Vital Signs Vital signs: Vital Signs Temp 97.9 F 05/30/21 08:27 Pulse 93 05/30/21 08:27 Resp 12 05/30/21 08:27 BP Pulse Ox 99 05/30/21 08:27 Intake & Output 05/29/21 05/30/21 05/30/21 18:59 06:59 18:59 Weight 90.265 kg
== END ==
LOC: WWCWWP 08:14
PROVIDERS: ATTEND Surgery
DX: N60.11 Diffuse cystic mastopathy of right breast (principal); N60.81 Other benign mammary dysplasias of right breast; N60.21 Fibroadenosis of right breast; D24.1 Benign neoplasm of right breast; N62 Hypertrophy of breast; R92.0 Mammographic microcalcification found on diagnostic imaging of breast; Z98.890 Other specified postprocedural states; F17.200 Nicotine dependence, unspecified, uncomplicated

== ENCOUNTER 2021-08-26 02:06 | Inpatient (IN) | payer MEDICARE, MEDICAID ==
--- NOTE | 2021-08-26 04:18 | ED ---
Psych HPI <Sundeep Burnham - Last Filed: 08/26/21 14:09> - General Source: patient, RN notes reviewed, old records reviewed Mode of arrival: ambulatory - History of Present Illness MD Complaint: feels depressed -: hour(s) Associated Psychiatric Symptoms: depression, racing thoughts, auditory hallucinations, visual hallucinations, delusions Quality: constant Improves With: none Worsens With: none Context: not taking psychiatric medications Associated Symptoms: denies other symptoms Treatments Prior to Arrival: placed on mental health hold <Clifford Chaves - Last Filed: 08/26/21 22:26> - General Chief Complaint: Psychiatric Symptoms Stated Complaint: Mental Health Time Seen by Provider: 08/26/21 03:56 - History of Present Illness Initial Comments: This is a 41 to the ER for evaluation of mental health on illness. Patient has history of psychiatric illness history of polysubstance drug abuse. Patient states she's having voices are telling her to kill herself. Patient denies significant change in medications. No significant recent stressors by hearing voices toward metatarsals patient states she does not want to (Clifford Chaves) - Related Data Home Medications Medication Instructions Recorded Confirmed Atorvastatin [Lipitor] 10 mg PO HS 08/26/21 08/26/21 Celecoxib [CeleBREX] 200 mg PO DAILY 08/26/21 08/26/21 Divalproex ER [Depakote ER] 1,500 mg PO HS 08/26/21 08/26/21 Famotidine [Pepcid] 40 mg PO DAILY 08/26/21 08/26/21 Naproxen 500 mg PO BID 08/26/21 08/26/21 OLANZapine [ZyPREXA] 7.5 mg PO HS 08/26/21 08/26/21 OLANZapine [ZyPREXA] 20 mg PO HS 08/26/21 08/26/21 Omeprazole 20 mg PO BID 08/26/21 08/26/21 Oxybutynin Chloride [Ditropan] 5 mg PO DAILY 08/26/21 08/26/21 Topiramate [Topamax] 100 mg PO BID 08/26/21 08/26/21 diphenhydrAMINE [Benadryl] 25 mg PO HS 08/26/21 08/26/21 hydrOXYzine pamoate [hydrOXYzine 50 mg PO TID 08/26/21 08/26/21 PAMOATE] Allergies Allergy/AdvReac Type Severity Reaction Status Date / Time No Known Allergies Allergy Verified 08/26/21 02:28 Review of Systems ROS Other: All systems not noted in ROS Statement are negative. <Sundeep Burnham Grady - Last Filed: 08/26/21 14:09> ROS Other: All systems not noted in ROS Statement are negative. <Clifford Chaves Zay - Last Filed: 08/26/21 22:26> ROS Statement: Those systems with pertinent positive or pertinent negative responses have been documented in the HPI. Past Medical History Past Medical History: Asthma, GERD/Reflux Additional Past Medical History / Comment(s): Occasional back pain, past tongue laceration. herpes History of Any Multi-Drug Resistant Organisms: MRSA Date of last positivie culture/infection: 2014 MDRO Source:: finger Past Surgical History: Orthopedic Surgery Additional Past Surgical History / Comment(s): R inguinal hernia repair, R shoulder aniya removal per spouse, R ankle fracture Past Anesthesia/Blood Transfusion Reactions: No Reported Reaction Past Psychological History: Anxiety, Bipolar, Depression, Schizoaffective Disorder Smoking Status: Current every day smoker Past Alcohol Use History: Occasional Past Drug Use History: Cocaine, Heroin, IV Drug Use, Marijuana, Prescription Drug Abuse - Past Family History Mother Family Medical History: Hypertension Father Family Medical History: Cancer Additional Family Medical History / Comment(s): Unknown type of cancer. <RedcarolinaClifford Zay - Last Filed: 08/26/21 22:26> General Exam Limitations: no limitations General appearance: alert, in no apparent distress Head exam: Present: atraumatic, normocephalic, normal inspection Eye exam: Present: normal appearance, PERRL, EOMI. Absent: scleral icterus, conjunctival injection, periorbital swelling ENT exam: Present: normal exam, mucous membranes moist Neck exam: Present: normal inspection. Absent: tenderness, meningismus, lymphadenopathy Respiratory exam: Present: normal lung sounds bilaterally. Absent: respiratory distress, wheezes, rales, rhonchi, stridor Cardiovascular Exam: Present: regular rate, normal rhythm, normal heart sounds. Absent: systolic murmur, diastolic murmur, rubs, gallop, clicks GI/Abdominal exam: Present: soft, normal bowel sounds. Absent: distended, tenderness, guarding, rebound, rigid Extremities exam: Present: normal inspection, full ROM, normal capillary refill. Absent: tenderness, pedal edema, joint swelling, calf tenderness Back exam: Present: normal inspection Neurological exam: Present: alert, oriented X3, CN II-XII intact Psychiatric exam: Present: normal affect, normal mood Skin exam: Present: warm, dry, intact, normal color. Absent: rash <Clifford Chaves - Last Filed: 08/26/21 22:26> Course <Clifford Chaves - Last Filed: 08/26/21 22:26> Vital Signs 08/26/21 08/26/21 08/26/21 02:28 04:36 09:21 Temperature 98.6 F 98.8 F 98.3 F Pulse Rate 78 74 100 Respiratory 20 16 16 Rate Blood Pressure 113/66 118/66 129/79 O2 Sat by Pulse 100 100 100 Oximetry 08/26/21 14:34 Temperature 97.9 F Pulse Rate 90 Respiratory 16 Rate Blood Pressure 139/67 O2 Sat by Pulse 99 Oximetry - Reevaluation(s) Reevaluation #1: 08/26/21 Medical record is reviewed Medical clear for psychiatric evaluation (Clifford Chaves) Medical Decision Making <Sundeep Burnham - Last Filed: 08/26/21 14:09> - Medical Decision Making Patient had been evaluated by previous physician, cleared for EPS evaluation. She's been hearing voices, that is been telling her to kill herself. There is no suicide attempt. She had been evaluated by EPS and felt to meet criteria for inpatient evaluation and treatment. She will be admitted to this institution. ( Sundeep Burnham) - Lab Data Lab Results 08/26/21 Range/Units 13:57 Coronavirus (PCR) Not Detected (Not Detectd) Disposition Is patient prescribed a controlled substance at d/c from ED?: No Decision to Admit Reason: Admit from EC Decision Date: 08/26/21 Decision Time: 14:10 <Sundeep Burnham - Last Filed: 08/26/21 14:09> Is patient prescribed a controlled substance at d/c from ED?: No <Clifford Chaves - Last Filed: 08/26/21 22:26> Clinical Impression: Depression, Suicidal ideation, Adjustment reaction of adult life, Bipolar 1 disorder, depressed, Acute psychosis, Delirium due to general medical condition, Cocaine use disorder, Alcohol use disorder, Cannabis use disorder, moderate, dependence, Bipolar 1 disorder, depressed, severe Disposition: ADMITTED IP TO THIS [facility] Condition: Stable
[2021-08-26] MEDS ORDERED: MAGNESIUM HYDROXIDE 2,400 MG/10 ML CUP PO PRN (16:11)
[2021-08-26] MEDS ORDERED: MAG HYDROX/AL HYDROX/SIMETH 30 ML CUP PO PRN (16:11)
[2021-08-26] MEDS ORDERED: OLANZapine 10 MG VIAL IM PRN (16:13)
[2021-08-26] MEDS ORDERED: OLANZapine 7.5 MG TAB PO PRN (16:13)
[2021-08-26] MEDS ORDERED: hydrOXYzine pamoate 25 MG CAP PO PRN (16:13)
[2021-08-26] MEDS: NICOTINE 14MG/24HR PATCH TRANSDERM SCH (16:41)
[2021-08-26] MEDS ORDERED: OLANZapine 10 MG TAB PO SCH (21:00)
[2021-08-26] MEDS: ATORVASTATIN 10 MG TAB PO SCH (22:12)
[2021-08-26] MEDS: TOPIRAMATE 100 MG TAB PO SCH (22:12)
[2021-08-27 07:59] LABS: Basophils % (A) 0 %; Eosinophils # (A) 0.1 k/uL (0-0.7); Eosinophils % (A) 1 %; HCT 42.1 % (34.0-46.0); HGB 13.4 gm/dL (11.4-16.0); Lymphocytes # (A) 3.6 k/uL (1.0-4.8); Lymphocytes % (A) 54 %; MCHC 31.9 g/dL (31.0-37.0); MCV 103.5 fL (80.0-100.0); Macrocytosis Slight; Mean Platelet Volume 9.3; Monocytes # (A) 0.3 k/uL (0-1.0); Monocytes % (A) 5 %; Neutrophils # (A) 2.5 k/uL (1.3-7.7); Neutrophils % (A) 38 %; Platelet Count 227 k/uL (150-450); RBC 4.07 m/uL (3.80-5.40); WBC 6.6 k/uL (3.8-10.6)
[2021-08-27 08:20] LABS: ALT 11 U/L (4-34); AST 25 U/L (14-36); African American GFR (CKD) 77 (>60 ml/min/1.73 sqM); Albumin 3.8 g/dL (3.5-5.0); Alkaline Phosphatase 64 U/L (38-126); Anion Gap 5 mmol/L; Blood Urea Nitrogen 19 mg/dL (7-17); Calcium 9.8 mg/dL (8.4-10.2); Carbon Dioxide 23 mmol/L (22-30); Chloride 112 mmol/L (98-107); Glucose 84 mg/dL (74-99); Non-African American GFR(CKD) 67 (>60 ml/min/1.73 sqM); Potassium 3.7 mmol/L (3.5-5.1); Sodium 140 mmol/L (137-145); Total Bilirubin 1.2 mg/dL (0.2-1.3); Total Protein 6.9 g/dL (6.3-8.2)
[2021-08-27] MEDS: MELOXICAM 7.5 MG TAB PO SCH (08:36)
[2021-08-27] MEDS: NICOTINE 14MG/24HR PATCH TRANSDERM SCH (08:36)
[2021-08-27] MEDS: FAMOTIDINE 20 MG TAB PO SCH (08:37)
[2021-08-27] MEDS: TOPIRAMATE 100 MG TAB PO SCH ×2 (08:37→21:03)
[2021-08-27] MEDS: OXYBUTYNIN CHLORIDE 5 MG TAB PO SCH (08:37)
[2021-08-27] MEDS: PANTOPRAZOLE 40 MG TABLET PO SCH (08:38)
--- NOTE | 2021-08-27 11:45 | P.HP ---
Psychiatric H&P - . H&P Date: 08/27/21 History & Physical: Allergies Allergy/AdvReac Type Severity Reaction Status Date / Time No Known Allergies Allergy Verified 08/26/21 02:28 Vital Signs Temp 97.8 F 08/27/21 08:34 Pulse 126 H 08/27/21 08:34 Resp 22 08/27/21 08:34 BP 119/74 08/27/21 08:34 Pulse Ox 97 08/26/21 16:27 Intake & Output 08/26/21 08/27/21 08/27/21 18:59 06:59 18:59 Weight 76.204 kg Laboratory Last Values WBC 6.6 k/uL (3.8-10.6) 08/27/21 07:01 RBC 4.07 m/uL (3.80-5.40) 08/27/21 07:01 Hgb 13.4 gm/dL (11.4-16.0) 08/27/21 07:01 Hct 42.1 % (34.0-46.0) 08/27/21 07:01 MCV 103.5 fL (80.0-100.0) H 08/27/21 07:01 MCH 33.0 pg (25.0-35.0) 08/27/21 07:01 MCHC 31.9 g/dL (31.0-37.0) 08/27/21 07:01 RDW 15.0 % (11.5-15.5) 08/27/21 07:01 Plt Count 227 k/uL (150-450) 08/27/21 07:01 MPV 9.3 08/27/21 07:01 Neutrophils % 38 % 08/27/21 07:01 Lymphocytes % 54 % 08/27/21 07:01 Monocytes % 5 % 08/27/21 07:01 Eosinophils % 1 % 08/27/21 07:01 Basophils % 0 % 08/27/21 07:01 Neutrophils # 2.5 k/uL (1.3-7.7) 08/27/21 07:01 Lymphocytes # 3.6 k/uL (1.0-4.8) 08/27/21 07:01 Monocytes # 0.3 k/uL (0-1.0) 08/27/21 07:01 Eosinophils # 0.1 k/uL (0-0.7) 08/27/21 07:01 Basophils # 0.0 k/uL (0-0.2) 08/27/21 07:01 Macrocytosis Slight 08/27/21 07:01 Sodium 140 mmol/L (137-145) 08/27/21 07:01 Potassium 3.7 mmol/L (3.5-5.1) 08/27/21 07:01 Chloride 112 mmol/L (98-107) H 08/27/21 07:01 Carbon Dioxide 23 mmol/L (22-30) 08/27/21 07:01 Anion Gap 5 mmol/L 08/27/21 07:01 BUN 19 mg/dL (7-17) H 08/27/21 07:01 Creatinine 1.03 mg/dL (0.52-1.04) 08/27/21 07:01 Est GFR (CKD-EPI)AfAm 77 (>60 ml/min/1.73 sqM) 08/27/21 07:01 Est GFR (CKD-EPI)NonAf 67 (>60 ml/min/1.73 sqM) 08/27/21 07:01 Glucose 84 mg/dL (74-99) 08/27/21 07:01 Calcium 9.8 mg/dL (8.4-10.2) 08/27/21 07:01 Total Bilirubin 1.2 mg/dL (0.2-1.3) 08/27/21 07:01 AST 25 U/L (14-36) 08/27/21 07:01 ALT 11 U/L (4-34) 08/27/21 07:01 Alkaline Phosphatase 64 U/L (38-126) 08/27/21 07:01 Total Protein 6.9 g/dL (6.3-8.2) 08/27/21 07:01 Albumin 3.8 g/dL (3.5-5.0) 08/27/21 07:01 TSH 1.070 mIU/L (0.465-4.680) 08/27/21 07:01 Coronavirus (PCR) Not Detected (Not Detectd) 08/26/21 13:57 08/27/21 10:37 IDENTIFYING DATA: Patient is a 41-year-old -[place] female, who currently is lives with her in a house, she has no kids of her own. She collects SSI. HPI: Patient presented to the hospital yesterday complaining of depression and auditory and visual hallucinations and also was endorsing delusions according to ER report. Patient apparently reported that she is not taking her psychiatric medications. Patient's home medications include Zyprexa Depakote Vistaril and Benadryl. Patient's last admission to the mental health unit was in 2018. Patient has a history of bipolar disorder type I and also polysubstance abuse. Patient signed voluntary and agreeable to treatment. She was seen today and evaluated by typewriter ribbon winder in the office. She was fairly cooperative during the interview. She spoke about hearing voices for the past 4 days. She correlates it with "smoking crack" around that time which may have triggered it. She states that last night she did not hear any voices and believes that they are very minimal today. She states that usually the voices are command in nature and telling her to hurt herself or speaking negatively about herself. She states that her sleep has been very poor lately and that she needed a "good night's sleep". She states that she's been hearing the voices for about 8 years now. She claims that she has a history of schizoaffective disorder. She states that her mood is "fine now". She also claims that she sm okes marijuana approximately 1 g every other day. She denies any alcohol use. She states that she smokes cigarettes. She has not given a urine drug screen or urine analysis. She claims that she does have visual hallucinations at times and "sees people in the kitchen for a split second". She claims that her appetite has been fair and that she has been taking her medications. She is denying any paranoia today. Patient denies any suicidal or homicidal ideations intent or plan. Patient denies any flight of ideas racing thoughts and increased in goal directed behavior. Patient admits to using PAST PSYCHIATRIC HISTORY: Patient states that she has a history of schizoaffective disorder and polysubstance abuse. Patient was previously on Zyprexa Depakote and Vistaril. Patient's last psychiatric hospitalization was on the mental health unit in September 2018. Patient currently follows up at [facility] with her nurse practitioner and transplant case manager. She states that she had 1 suicide attempt several years ago however was vague about what happened. Past Medical History: Asthma, GERD/Reflux Additional Past Medical History / Comment(s): Occasional back pain, past tongue laceration. herpes ALLERGIES: as per EMR CHEMICAL DEPENDENCY HISTORY: as per HPI FAMILY PSYCHIATRIC/SUBSTANCE USE HISTORY: denies SOCIAL HISTORY: Patient was born and raised in [place] and states that she then moved to [place]. She claims that she completed high school and did not attend college. She claims that she did go to detention once in [place] and once in [place] and they were drug-related charges. She states that she currently lives in a house with her has 4 kids living in the house however they are not hers. She claims that she collects SSI. MENTAL STATUS EXAM: General Appearance: Patient appears to be tall, stated age is alert, directable, and attempts to cooperate. Disheveled appearance. Patient appears to have poor hygiene and grooming. Behavior: Patient is seated without any agitated behavior. Speech: Patient's speech is fluent and nonpressured. Mood/Affect: Patient reports their mood is "okay now"., affect is congruent and constricted. Suicidality/Homicidality: Patient denies having any homicidal ideation intent or plan. Denies any suicidal ideations intent or plan Perceptions: Patient claims that she hears voices and visual hallucinations. Though content/process: There is no evidence of any delusional thought content and thought process is linear and goal-directed. Focused on her symptoms. Memory and concentration: AOX3, grossly intact for the purposes of this session. Can spell "WORLD" backwards Judgment and insight: poor STRENGTHS/WEAKNESSES: strength is that patient is resilient. Weakness is that patient has poor judgment and polysubstance use INTELLECT: average IMPRESSIONS: Schizoaffective disorder bipolar type Cocaine abuse Cannabis use disorder Nicotine dependence PLAN: -Patient is admitted under voluntary status to MHU for stabilization of psychiatric symptoms and safety. Patient has signed adult voluntary form and medication consent and is placed in patient's chart. -Medications : Will start patient on her home dose of Zyprexa however will increase to 25 mg daily at bedtime for mood stabilization/psychosis. Resume Depakote ER 1000 mg daily at bedtime for mood stabilization. Vistaril 50 mg 3 times a day when necessary for anxiety. -Zyprexa by mouth and IM PRN for agitation/aggression -Patient was counselled on substance abuse and desired to cut back on use. -Patient was informed of the risks, benefits and side effects of the medication and patient verbally consented to taking the medications. Patient signed med consent form and was placed in chart. -Internal Medicine consult to perform medical evaluation and physical. -NRT - nicotine patch -SW on board for discharge planning. Encourage patient to participate in groups to work on coping skills. Patient was offered rehab however refused at this time.
[2021-08-27 14:20] LABS: Appearance,Urine Clear (Clear); Bilirubin,Urine Negative (Negative); Blood,Urine Negative (Negative); Color,Urine Yellow; Glucose,Urine (UA) Negative (Negative); Ketones,Urine Trace (Negative); Leukocyte Esterase,Urine Negative (Negative); Nitrite,Urine Negative (Negative); PH, Urine 6.5 (5.0-8.0); Protein,Urine Negative (Negative); Specific Gravity,Urine 1.011 (1.001-1.035); Urobilinogen,Urine <2.0 mg/dL (<2.0)
[2021-08-27 15:25] LABS: Chol/HDL Ratio 3.11 Ratio; LDL Cholesterol,Calculated 111.4 mg/dL (0.0-131.0)
[2021-08-27] MEDS: ACETAMINOPHEN TAB 325 MG TAB PO PRN (18:16)
[2021-08-27] MEDS ORDERED: OLANZapine 10 MG TAB PO SCH (21:00)
[2021-08-27] MEDS: ATORVASTATIN 10 MG TAB PO SCH (21:02)
[2021-08-27] MEDS: DIVALPROEX ER 500 MG TAB.ER.24H PO SCH (21:02)
[2021-08-28] MEDS ORDERED: ALBUTEROL INHALER 60 PUFF/8 GM INHALER (MHU) INHALATION PRN (00:35)
[2021-08-28 00:42] VITALS: RESP 14
[2021-08-28] MEDS: NICOTINE 14MG/24HR PATCH TRANSDERM SCH (09:09)
[2021-08-28] MEDS: TOPIRAMATE 100 MG TAB PO SCH ×2 (09:09→21:04)
[2021-08-28] MEDS: PANTOPRAZOLE 40 MG TABLET PO SCH (09:09)
[2021-08-28] MEDS: OXYBUTYNIN CHLORIDE 5 MG TAB PO SCH (09:09)
[2021-08-28] MEDS: FAMOTIDINE 20 MG TAB PO SCH (09:09)
[2021-08-28] MEDS: MELOXICAM 7.5 MG TAB PO SCH (09:09)
--- NOTE | 2021-08-28 10:32 | P.PN ---
Progress Note - Text Progress Note Date: 08/28/21 Interval History: Patient was seen taking part in group today and was directable and agreeable to speak with caption writer in the office. She claims that she does feel little bit anxious during the day and asks about possibly being started on Neurontin. Patient was informed of the risks of abuse and how that is a controlled medication and suggested Vistaril instead which patient agreed to try today. She claims that overall her mood has been improving. She claims that she feels more optimistic about her future. She does agree that the drug use contributed to her increase in voices. She states that the voices have improved significantly since being in the hospital however still hears "whispers at times". She claims that she had a difficult time sleeping last night and requested additional Zyprexa. She states that she slept about 3-4 hours. She has a fair appetite. At this time patient denies any suicidal or homical ideations, intent or plan. Patient denies any visual hallucinations and denies any paranoia or delusions. Patient denies any side effects from the medications and has been compliant with meds. Mental Status Exam: General Appearance: Patient appears to be tall, stated age is alert, directable, and attempts to cooperate. Patient appears to have improving hygiene and grooming. Behavior: Patient is seated without any agitated behavior. More cooperative today Speech: Patient's speech is fluent and nonpressured. Mood/Affect: Patient reports their mood is "better but anxious"., affect is congruent Suicidality/Homicidality: Patient denies having any homicidal ideation intent or plan. Denies any suicidal ideations intent or plan Perceptions: Patient claims that she hears voices and visual hallucinations. Though content/process: There is no evidence of any delusional thought content and thought process is linear and goal-directed. Focused on her symptoms. More future oriented. Memory and concentration: AOX3, grossly intact for the purposes of this session. Judgment and insight: Improving mildly Assessment Schizoaffective disorder bipolar type Cocaine abuse Cannabis use disorder Nicotine dependence Plan: -Patient continues to meet criteria for inpatient psychiatric admission for symptom stabilization and safety. Patient has signed adult voluntary form and medication consent and was placed in patient's chart. -Medications: Increase Zyprexa to 30 mg daily at bedtime for psychosis/mood stabilization/insomnia. Increase Depakote ER to 1000 mg daily at bedtime +500 mg daily for mood stabilization. Continue Vistaril 50 mg 3 times a day when necessary for anxiety. Melatonin 6 mg daily at bedtime for sleep. -When necessary Zyprexa for agitation/aggression. -NRT - nicotine patch -SW on board for discharge planning. Encouraged the patient to participate in milieu. Patient is refusing to go to rehab. The patient continues to improve psychiatrically likely discharge tomorrow back home. \\
[2021-08-28] MEDS: DIVALPROEX ER 500 MG TAB.ER.24H PO SCH ×2 (11:04→21:04)
[2021-08-28 19:30] LABS: Urine Alcohol Negative (Negative); Urine Barbiturate Negative (Negative); Urine Cocaine Positive (Negative); Urine Methadone Negative (Negative); Urine Opiates Negative (Negative); Urine Phencyclidine Negative (Negative)
[2021-08-28] MEDS ORDERED: OLANZapine 10 MG TAB PO SCH (21:00)
[2021-08-28] MEDS ORDERED: MELATONIN 3 MG TABLET PO SCH (21:00)
[2021-08-28] MEDS: ATORVASTATIN 10 MG TAB PO SCH (21:04)
[2021-08-28] MEDS: ACETAMINOPHEN TAB 325 MG TAB PO PRN (21:04)
--- NOTE | 2021-08-28 23:12 | P.CONS ---
History of Present Illness - Reason for Consult Consult date: 08/27/21 medical eval - Chief Complaint Suicidal - History of Present Illness Yina Borja is a 41 yo F with PMH significant for schizophrenia who presented to the ED complaining of worsening hallucination and feeling suicidal. She complains that she has been experiencing worsening auditory hallucinations that put her down and tell her to harm herself. She states she has been occasionally using cocaine which makes this worse and has not been taking her medications lately. She denies chest pain, shortness of breath, headache, vision change. On presentation vitals and labs are reviewed and stable. Review of Systems All systems: negative Constitutional: Denies chills, Denies fever Eyes: denies blurred vision, denies pain Ears, nose, mouth and throat: Denies headache, Denies sore throat Cardiovascular: Denies chest pain, Denies shortness of breath Respiratory: Denies cough Gastrointestinal: Denies abdominal pain, Denies diarrhea, Denies nausea, Denies vomiting Genitourinary: Denies dysuria, Denies hematuria Musculoskeletal: Denies myalgias Integumentary: Denies pruritus, Denies rash Neurological: Denies numbness, Denies weakness Psychiatric: Reports anxiety, Reports hallucinations, Reports suicidal ideation, Denies depression Endocrine: Denies fatigue, Denies weight change Past Medical History Past Medical History: Asthma, GERD/Reflux Additional Past Medical History / Comment(s): Occasional back pain, past tongue laceration. herpes History of Any Multi-Drug Resistant Organisms: MRSA Year Discovered:: 2014 MDRO Source:: finger Past Surgical History: Orthopedic Surgery Additional Past Surgical History / Comment(s): R inguinal hernia repair, R shoulder aniya removal per spouse, R ankle fracture Past Anesthesia/Blood Transfusion Reactions: No Reported Reaction Past Psychological History: Anxiety, Bipolar, Depression, Schizoaffective Disorder Smoking Status: Current every day smoker Past Alcohol Use History: Occasional Past Drug Use History: Cocaine, Heroin, IV Drug Use, Marijuana, Prescription Drug Abuse - Past Family History Mother Family Medical History: Hypertension Father Family Medical History: Cancer Additional Family Medical History / Comment(s): Unknown type of cancer. Medications and Allergies Home Medications Medication Instructions Recorded Confirmed Type Atorvastatin [Lipitor] 10 mg PO HS 08/26/21 08/26/21 History Celecoxib [CeleBREX] 200 mg PO DAILY 08/26/21 08/26/21 History Divalproex ER [Depakote ER] 1,500 mg PO HS 08/26/21 08/26/21 History Famotidine [Pepcid] 40 mg PO DAILY 08/26/21 08/26/21 History Naproxen 500 mg PO BID 08/26/21 08/26/21 History OLANZapine [ZyPREXA] 7.5 mg PO HS 08/26/21 08/26/21 History OLANZapine [ZyPREXA] 20 mg PO HS 08/26/21 08/26/21 History Omeprazole 20 mg PO BID 08/26/21 08/26/21 History Oxybutynin Chloride [Ditropan] 5 mg PO DAILY 08/26/21 08/26/21 History Topiramate [Topamax] 100 mg PO BID 08/26/21 08/26/21 History diphenhydrAMINE [Benadryl] 25 mg PO HS 08/26/21 08/26/21 History hydrOXYzine pamoate [hydrOXYzine 50 mg PO TID 08/26/21 08/26/21 History PAMOATE] Allergies Allergy/AdvReac Type Severity Reaction Status Date / Time No Known Allergies Allergy Verified 08/26/21 02:28 Physical Exam Vitals: Vital Signs Temp Pulse Resp BP 08/28/21 00:41 97.4 F L 109 H 14 113/69 Results CBC & Chem 7: 08/27/21 07:01 08/27/21 07:01 Labs: Abnormal Lab Results - Last 24 Hours (Table) 08/27/21 Range/Units 12:40 Urine Cocaine Screen Positive A (Negative) U Cannabinoids Screen Positive A (Negative) Assessment and Plan Plan: 1. Schizophrenia. Suicidal ideation. Management per psychiatry 2. GERD. Continue protonix 3. OA. Continue mobic 4. OAB. continue oxybutinin
[2021-08-29 06:02] VITALS: BP 95/58; PULSE 72; TEMP 98.4
[2021-08-29] MEDS: NICOTINE 14MG/24HR PATCH TRANSDERM SCH (08:18)
[2021-08-29] MEDS: TOPIRAMATE 100 MG TAB PO SCH (08:19)
[2021-08-29] MEDS: PANTOPRAZOLE 40 MG TABLET PO SCH (08:19)
[2021-08-29] MEDS: DIVALPROEX ER 500 MG TAB.ER.24H PO SCH (08:19)
[2021-08-29] MEDS: MELOXICAM 7.5 MG TAB PO SCH (08:19)
[2021-08-29] MEDS: FAMOTIDINE 20 MG TAB PO SCH (08:20)
[2021-08-29] MEDS: OXYBUTYNIN CHLORIDE 5 MG TAB PO SCH (08:21)
[2021-08-29] MEDS: ACETAMINOPHEN TAB 325 MG TAB PO PRN (09:41)
--- NOTE | 2021-08-29 10:22 | P.DS ---
Providers Date of admission: 08/26/21 15:21 Expected date of discharge: 08/29/21 Attending physician: Paco Noe MD Consults: 08/26/21 16:11 Consult Physician Routine Consulting Provider: Liban Rawls Consult Reason/Comments: H&P and medical Do you want consulting provider notified?: Already Contacted Primary care physician: Liban Rawls MD - Discharge Diagnosis(es) (1) Schizoaffective disorder, bipolar type Current Visit: Yes Status: Acute Priority: High (2) Cannabis use disorder, mild, abuse Current Visit: Yes Status: Acute Priority: Medium (3) Nicotine dependence Current Visit: Yes Status: Acute Priority: Low Hospital Course: Admission HPI: Admission note was completed by creative services writer "Patient is a 41-year-old - [place] female, who currently is lives with her in a house, she has no kids of her own. She collects SSI. Patient presented to the hospital yesterday complaining of depression and auditory and visual hallucinations and also was endorsing delusions according to ER report. Patient apparently reported that she is not taking her psychiatric medications. Patient's home medications include Zyprexa Depakote Vistaril and Benadryl. Patient's last admission to the mental health unit was in 2018. Patient has a history of bipolar disorder type I and also polysubstance abuse. Patient signed voluntary and agreeable to treatment. She was seen today and evaluated by creative services writer in the office. She was fairly cooperative during the interview. She spoke about hearing voices for the past 4 days. She correlates it with "smoking crack" around that time which may have triggered it. She states that last night she did not hear any voices and believes that they are very minimal today. She states that usually the voices are command in nature and telling her to hurt herself or speaking negatively about herself. She states that her sleep has been very poor lately and that she needed a "good night's sleep". She states that she's been hearing the voices for about 8 years now. She claims that she has a history of schizoaffective disorder. She states that her mood is "fine now". She also claims that she smokes marijuana approximately 1 g every other day. She denies any alcohol use. She states that she smokes cigarettes. She has not given a urine drug screen or urine analysis. She claims that she does have visual hallucinations at times and "sees people in the kitchen for a split second". She claims that her appetite has been fair and that she has been taking her medications. She is denying any paranoia today. Patient denies any suicidal or homicidal ideations intent or plan. Patient denies any flight of ideas racing thoughts and increased in goal directed behavior. Patient admits to using marijuana daily and cigarettes." Hospital course: Upon admission to the unit patient was directable and agreeable to commence treatment and signed adult voluntary form. Patient got along well with other patients on the unit and followed unit protocol. Patient was compliant with the medications and denied any side effects throughout hospital course. Patient was started on Zyprexa and titrated up to dose of 30 mg daily at bedtime for psychosis/mood stabilization/insomnia. Patient was restarted back on Depakote ER to 1500 milligrams daily at bedtime for mood stabilization. Vistaril when necessary for anxiety. Melatonin increased to a dose of 10 mg daily at bedtime for sleep.. Patient spoke of her stressors and engaged in therapy both group and individual. Patient was also seen by medical team for history and physical exam. Throughout the course of the hospitalization patient gradually improved with regards to mood, anxiety, sleep and returned back to their baseline level of functioning. On the day of discharge patient denied any suicidal or homicidal ideations intent or plan denied any auditory or visual hallucinations. Patient endorsed wanting to live for her health and her future. The patient denied any access to guns or weapons. Patient denied any paranoia and did not endorse any delusions. Patient does have a significant history of substance abuse and was counseled on abstaining from all substances including alcohol and marijuana. Patient was offered however declined inpatient substance-abuse rehab. Patient was also counseled on the medications and need for regular compliance and was encouraged to follow-up with their outpatient appointment for mental health and also for primary care. Prior to discharge a family meeting will be arranged by social human services assistants to answer any questions and ensure safety upon discharge. Mental status exam: General Appearance: Patient appears to be tall, stated age is alert, pleasant, and cooperative. Patient is in no acute distress and has improved hygiene and grooming Behavior: Patient is calmly seated without any agitated behavior. Speech: Patient's speech is fluent and nonpressured. Mood/Affect: Patient reports their mood is "better", affect is congruent and euthymic. Suicidality/Homicidality: Patient denies having any suicidal or homicidal ideation intent or plan. Perceptions: Patient denies any auditory or visual hallucinations. Though content/process: There is no evidence of any delusional thought content and thought process is linear and goal-directed. more future oriented Memory and concentration: AOX3, grossly intact for the purposes of this session. Can spell "WORLD" backwards correctly. Judgment and insight: improved with guarded prognosis Impression: Schizoaffective disorder, bipolar type Cannabis use disorder mild Nicotine dependence Plan: -Continue with discharge today as patient has improved and stabilized psychiatrically and is not currently an imminent threat to herself and/or others. -Continue medications: Zyprexa 30 mg daily at bedtime for psychosis/mood stabilization/insomnia. Depakote ER 1500 mg daily at bedtime for mood stabilization, Vistaril 50 mg twice a day when necessary for anxiety, melatonin 10 mg daily at bedtime for sleep. -Patient was counseled on the need for medication compliance and appropriate follow-up at mental health and also primary care for medical issues. Patient verbalized understanding and agreed. -Social work to arrange for and conduct family meeting to ensure safety upon discharge and answer any questions/concerns. Social work also to arrange for patients follow up appointments with [facility] for psychiatric care along with follow up with primary care provider. -Patient counseled on abstaining from recreational drugs and marijuana and alcohol. Was informed/educated on the adverse effects on their physical and mental health. Patient verbally agreed and understood. Patient was offered substance abuse treatment however declined at this time. -Patient was instructed to return to the hospital or seek immediate medical care if their psychiatric or medical symptoms do worsen or reoccur. Allergies Allergy/AdvReac Type Severity Reaction Status Date / Time No Known Allergies Allergy Verified 08/26/21 02:28 Laboratory Results WBC 6.6 k/uL (3.8-10.6) 08/27/21 07:01 RBC 4.07 m/uL (3.80-5.40) 08/27/21 07:01 Hgb 13.4 gm/dL (11.4-16.0) 08/27/21 07:01 Hct 42.1 % (34.0-46.0) 08/27/21 07:01 MCV 103.5 fL (80.0-100.0) H 08/27/21 07:01 MCH 33.0 pg (25.0-35.0) 08/27/21 07:01 MCHC 31.9 g/dL (31.0-37.0) 08/27/21 07:01 RDW 15.0 % (11.5-15.5) 08/27/21 07:01 Plt Count 227 k/uL (150-450) 08/27/21 07:01 MPV 9.3 08/27/21 07:01 Neutrophils % 38 % 08/27/21 07:01 Lymphocytes % 54 % 08/27/21 07:01 Monocytes % 5 % 08/27/21 07:01 Eosinophils % 1 % 08/27/21 07:01 Basophils % 0 % 08/27/21 07:01 Neutrophils # 2.5 k/uL (1.3-7.7) 08/27/21 07:01 Lymphocytes # 3.6 k/uL (1.0-4.8) 08/27/21 07:01 Monocytes # 0.3 k/uL (0-1.0) 08/27/21 07:01 Eosinophils # 0.1 k/uL (0-0.7) 08/27/21 07:01 Basophils # 0.0 k/uL (0-0.2) 08/27/21 07:01 Macrocytosis Slight 08/27/21 07:01 Sodium 140 mmol/L (137-145) 08/27/21 07:01 Potassium 3.7 mmol/L (3.5-5.1) 08/27/21 07:01 Chloride 112 mmol/L (98-107) H 08/27/21 07:01 Carbon Dioxide 23 mmol/L (22-30) 08/27/21 07:01 Anion Gap 5 mmol/L 08/27/21 07:01 BUN 19 mg/dL (7-17) H 08/27/21 07:01 Creatinine 1.03 mg/dL (0.52-1.04) 08/27/21 07:01 Est GFR (CKD-EPI)AfAm 77 (>60 ml/min/1.73 sqM) 08/27/21 07:01 Est GFR (CKD-EPI)NonAf 67 (>60 ml/min/1.73 sqM) 08/27/21 07:01 Glucose 84 mg/dL (74-99) 08/27/21 07:[address] Glu mg/dL 104 08/27/21 07:01 Hemoglobin A1c 5.3 % (0.0-6.0) 08/27/21 07:01 Calcium 9.8 mg/dL (8.4-10.2) 08/27/21 07:01 Total Bilirubin 1.2 mg/dL (0.2-1.3) 08/27/21 07:01 AST 25 U/L (14-36) 08/27/21 07:01 ALT 11 U/L (4-34) 08/27/21 07:01 Alkaline Phosphatase 64 U/L (38-126) 08/27/21 07:01 Total Protein 6.9 g/dL (6.3-8.2) 08/27/21 07:01 Albumin 3.8 g/dL (3.5-5.0) 08/27/21 07:01 Triglycerides 121.00 mg/dL (0.00-149.00) 08/27/21 07:01 Cholesterol 200.00 mg/dL (0.00-200.00) 08/27/21 07:01 LDL Cholesterol, Calc 111.4 mg/dL (0.0-131.0) 08/27/21 07:01 VLDL Cholesterol, Calc 24.20 mg/dL (5.00-40.00) 08/27/21 07:01 HDL Cholesterol 64.40 mg/dL (40.00-60.00) H 08/27/21 07:01 Cholesterol/HDL Ratio 3.11 Ratio 08/27/21 07:01 TSH 1.070 mIU/L (0.465-4.680) 08/27/21 07:01 Urine Color Yellow 08/27/21 12:40 Urine Appearance Clear (Clear) 08/27/21 12:40 Urine pH 6.5 (5.0-8.0) 08/27/21 12:40 Ur Specific [place] 1.011 (1.001-1.035) 08/27/21 12:40 Urine Protein Negative (Negative) 08/27/21 12:40 Urine Glucose (UA) Negative (Negative) 01/12/22 12:40 Urine Ketones Trace (Negative) H 08/27/21 12:40 Urine Blood Negative (Negative) 08/27/21 12:40 Urine Nitrite Negative (Negative) 08/27/21 12:40 Urine Bilirubin Negative (Negative) 08/27/21 12:40 Urine Urobilinogen <2.0 mg/dL (<2.0) 08/27/21 12:40 Ur Leukocyte Esterase Negative (Negative) 08/27/21 12:40 Urine HCG, Qual Not Detected (Not Detectd) 08/27/21 12:40 Urine Opiates Screen Negative (Negative) 08/27/21 12:40 Urine Methadone Screen Negative (Negative) 08/27/21 12:40 Ur Propoxyphene Screen Negative (Negative) 08/27/21 12:40 Urine Barbiturates Negative (Negative) 08/27/21 12:40 Ur Phencyclidine Scrn Negative (Negative) 08/27/21 12:40 Ur Amphetamine Screen Negative (Negative) 08/27/21 12:40 U Benzodiazepines Scrn Negative (Negative) 08/27/21 12:40 Urine Cocaine Screen Positive (Negative) A 08/27/21 12:40 U Cannabinoids Screen Positive (Negative) A 08/27/21 12:40 Urine Alcohol Negative (Negative) 08/27/21 12:40 Coronavirus (PCR) Not Detected (Not Detectd) 08/26/21 13:57 Vital Signs Temp 98.4 F 08/29/21 06:01 Pulse 72 08/29/21 06:01 Resp 14 08/28/21 00:41 BP 95/58 08/29/21 06:01 Pulse Ox 97 08/26/21 16:27 Patient Condition at Discharge: Stable Plan - Discharge Summary New Discharge Prescriptions: New Divalproex ER [Depakote ER] 1,500 mg PO HS 30 Days tab Melatonin 10 mg PO HS 30 Days tablet Acetaminophen Tab [Tylenol] 650 mg PO Q4HR PRN tab PRN Reason: Pain/Discomfort hydrOXYzine pamoate [Vistaril] 50 mg PO BID PRN 30 Days cap PRN Reason: Anxiety OLANZapine [ZyPREXA] 30 mg PO HS 30 Days tab Nicotine 14Mg/24Hr Patch [Habitrol] 1 patch TRANSDERM DAILY 14 Days patch Topiramate [Topamax] 100 mg PO BID 30 Days tab Continue Topiramate [Topamax] 100 mg PO BID Famotidine [Pepcid] 40 mg PO DAILY Omeprazole 20 mg PO BID Celecoxib [CeleBREX] 200 mg PO DAILY 30 Days cap Oxybutynin Chloride [Ditropan] 5 mg PO DAILY 30 Days tab Atorvastatin [Lipitor] 10 mg PO HS 30 Days tab Discontinued diphenhydrAMINE [Benadryl] 25 mg PO HS OLANZapine [ZyPREXA] 7.5 mg PO HS hydrOXYzine pamoate [hydrOXYzine PAMOATE] 50 mg PO TID Divalproex ER [Depakote ER] 1,500 mg PO HS Naproxen 500 mg PO BID OLANZapine [ZyPREXA] 20 mg PO HS Discharge Medication List Famotidine [Pepcid] 40 mg PO DAILY 08/26/21 [History] Omeprazole 20 mg PO BID 08/26/21 [History] Topiramate [Topamax] 100 mg PO BID 08/26/21 [History] Acetaminophen Tab [Tylenol] 650 mg PO Q4HR PRN tab 08/29/21 [Rx] Atorvastatin [Lipitor] 10 mg PO HS 30 Days tab 08/29/21 [Rx] Celecoxib [CeleBREX] 200 mg PO DAILY 30 Days cap 08/29/21 [Rx] Divalproex ER [Depakote ER] 1,500 mg PO HS 30 Days tab 08/29/21 [Rx] Melatonin 10 mg PO HS 30 Days tablet 08/29/21 [Rx] Nicotine 14Mg/24Hr Patch [Habitrol] 1 patch TRANSDERM DAILY 14 Days patch 08/29/21 [Rx] OLANZapine [ZyPREXA] 30 mg PO HS 30 Days tab 08/29/21 [Rx] Oxybutynin Chloride [Ditropan] 5 mg PO DAILY 30 Days tab 08/29/21 [Rx] Topiramate [Topamax] 100 mg PO BID 30 Days tab 08/29/21 [Rx] hydrOXYzine pamoate [Vistaril] 50 mg PO BID PRN 30 Days cap 08/29/21 [Rx] Follow up Appointment(s)/Referral(s): Liban Rawls MD [Primary Care Provider] - 1-2 days Activity/Diet/Wound Care/Special Instructions: Activity and diet as tolerated. Avoid the use of street drugs and alcohol. Take all medications as prescribed. When you are in need of refills on your medications please contact your medical provider and/or outpatient psychiatrist to have this done. Please go to scheduled outpatient appointment for aftercare treatment. If symptoms return or become worse, call the crisis line at and/or go to the nearest emergency room for evaluation Discharge Disposition: HOME SELF-CARE
[2021-08-29] MEDS ORDERED: DIVALPROEX ER 500 MG TAB.ER.24H PO SCH (21:00)
[2021-08-29] MEDS ORDERED: MELATONIN 5 MG TABLET PO SCH (21:00)
== END 2021-08-29 12:30 | disposition home or self-care (01) | DRG 885 ==
LOC: EC 02:06 → 3MHU 15:21
PROVIDERS: ADMIT Psychiatry & Neurology Psychiatry; ATTEND Psychiatry & Neurology Psychiatry
DX: F25.0 Schizoaffective disorder, bipolar type (principal); F05 Delirium due to known physiological condition; R45.851 Suicidal ideations; F12.20 Cannabis dependence, uncomplicated; F14.10 Cocaine abuse, uncomplicated; Z20.822 Contact with and (suspected) exposure to COVID-19; Z91.128 Patient's intentional underdosing of medication regimen for other reason; F43.22 Adjustment disorder with anxiety; F10.10 Alcohol abuse, uncomplicated; J45.909 Unspecified asthma, uncomplicated; K21.9 Gastro-esophageal reflux disease without esophagitis; M54.9 Dorsalgia, unspecified; G47.00 Insomnia, unspecified; N32.81 Overactive bladder; T50.906A Underdosing of unspecified drugs, medicaments and biological substances, initial encounter; M19.90 Unspecified osteoarthritis, unspecified site; F17.210 Nicotine dependence, cigarettes, uncomplicated; Z71.6 Tobacco abuse counseling; Z79.1 Long term (current) use of non-steroidal anti-inflammatories (NSAID); Z79.899 Other long term (current) drug therapy; Z86.19 Personal history of other infectious and parasitic diseases; Z91.51 Personal history of suicidal behavior; Z86.14 Personal history of Methicillin resistant Staphylococcus aureus infection; Z87.19 Personal history of other diseases of the digestive system; Z87.2 Personal history of diseases of the skin and subcutaneous tissue; Z87.81 Personal history of (healed) traumatic fracture; Z98.890 Other specified postprocedural states; Z71.41 Alcohol abuse counseling and surveillance of alcoholic; Z71.51 Drug abuse counseling and surveillance of drug abuser; Z80.9 Family history of malignant neoplasm, unspecified; Z82.49 Family history of ischemic heart disease and other diseases of the circulatory system
CPT/HCPCS: 80053; 80061; 80306; 81003; 81025; 82075; 83036; 84443; 85025; 87635; 99285

== ENCOUNTER 2022-02-06 22:33 | Emergency (ER) | payer MEDICARE, OTHER ==
[2022-02-07 00:21] VITALS: BP 121/87; PULSE 63; RESP 18; TEMP 98.1
--- NOTE | 2022-02-07 00:21 | ED ---
Fever HPI - General Stated Complaint: Headache,Fever Time Seen by Provider: 02/07/22 00:14 Source: RN notes reviewed - History of Present Illness Initial Comments: 41-year-old female who has history of asthma, patient also is a smoker. Patient presents to the emergency room today complaining of body pain, subjective fever, cough. Patient was exposed to somebody COVID-19 is concerned about this. No headache, no fever or chills, no changes in vision or hearing, no sore throat or difficulty with speech, no neck pain, no chest pain or shortness of breath, no abdominal pain, no nausea or vomiting, no changes in urination or bowel movements, no numbness or tingling, no extremity pain, no skin rashes or lesions. MD Complaint: fever - Related Data Home Medications Medication Instructions Recorded Confirmed Famotidine [Pepcid] 40 mg PO DAILY 08/26/21 08/26/21 Omeprazole 20 mg PO BID 08/26/21 08/26/21 Topiramate [Topamax] 100 mg PO BID 08/26/21 08/26/21 Previous Rx's Medication Instructions Recorded Acetaminophen Tab [Tylenol] 650 mg PO Q4HR PRN tab 08/29/21 Atorvastatin [Lipitor] 10 mg PO HS 30 Days tab 08/29/21 Celecoxib [CeleBREX] 200 mg PO DAILY 30 Days cap 08/29/21 Divalproex ER [Depakote ER] 1,500 mg PO HS 30 Days tab 08/29/21 Melatonin 10 mg PO HS 30 Days tablet 08/29/21 Nicotine 14Mg/24Hr Patch [Habitrol] 1 patch TRANSDERM DAILY 14 Days 08/29/21 patch OLANZapine [ZyPREXA] 30 mg PO HS 30 Days tab 08/29/21 Oxybutynin Chloride [Ditropan] 5 mg PO DAILY 30 Days tab 08/29/21 Topiramate [Topamax] 100 mg PO BID 30 Days tab 08/29/21 hydrOXYzine pamoate [Vistaril] 50 mg PO BID PRN 30 Days cap 08/29/21 Albuterol Inhaler [Ventolin Hfa 2 puff INHALATION Q4HR PRN #1 each 02/07/22 Inhaler] Azithromycin [Zithromax Tri-Dmitry (3 500 mg PO DAILY 3 Days #3 tab 02/07/22 tabs)] predniSONE 50 mg PO DAILY #4 tab 02/07/22 Allergies Allergy/AdvReac Type Severity Reaction Status Date / Time No Known Allergies Allergy Verified 02/07/22 00:15 Review of Systems ROS Statement: Those systems with pertinent positive or pertinent negative responses have been documented in the HPI. ROS Other: All systems not noted in ROS Statement are negative. Past Medical History Past Medical History: Asthma, GERD/Reflux Additional Past Medical History / Comment(s): Occasional back pain, past tongue laceration. herpes History of Any Multi-Drug Resistant Organisms: MRSA Date of last positivie culture/infection: 2014 MDRO Source:: finger Past Surgical History: Orthopedic Surgery Additional Past Surgical History / Comment(s): R inguinal hernia repair, R shoulder aniya removal per spouse, R ankle fracture Past Anesthesia/Blood Transfusion Reactions: No Reported Reaction Past Psychological History: Anxiety, Bipolar, Depression, Schizoaffective Disorder Smoking Status: Current every day smoker Past Alcohol Use History: Occasional Past Drug Use History: Cocaine, Heroin, IV Drug Use, Marijuana, Prescription Drug Abuse - Past Family History Mother Family Medical History: Hypertension Father Family Medical History: Cancer Additional Family Medical History / Comment(s): Unknown type of cancer. General Exam - General Exam Comments Initial Comments: Nontoxic-appearing 40-year-old female in no acute distress. Vital signs stable. Appears to be adequately hydrated. No increased work of breathing. General appearance: alert, in no apparent distress Head exam: Present: atraumatic, normocephalic, normal inspection Eye exam: Present: normal appearance, PERRL, EOMI. Absent: scleral icterus, conjunctival injection, periorbital swelling ENT exam: Present: normal exam, mucous membranes moist. Absent: mucous membranes dry Neck exam: Present: normal inspection, full ROM. Absent: tenderness, meningismus, lymphadenopathy Respiratory exam: Present: normal lung sounds bilaterally, wheezes (Occasional scattered expiratory wheeze. Otherwise good air entry. No other adventitious lung sounds). Absent: respiratory distress, rales, rhonchi, stridor Cardiovascular Exam: Present: regular rate, normal rhythm, normal heart sounds. Absent: systolic murmur, diastolic murmur, rubs, gallop, clicks GI/Abdominal exam: Present: soft, normal bowel sounds. Absent: distended, tenderness, guarding, rebound, rigid Extremities exam: Present: normal inspection, full ROM, normal capillary refill. Absent: tenderness, pedal edema, joint swelling, calf tenderness Back exam: Present: normal inspection Neurological exam: Present: alert, oriented X3, CN II-XII intact Psychiatric exam: Present: normal affect, normal mood Skin exam: Present: warm, dry, intact, normal color. Absent: rash Course Vital Signs 02/07/22 00:15 Temperature 98.1 F Pulse Rate 63 Respiratory 18 Rate Blood Pressure 121/87 O2 Sat by Pulse 100 Oximetry - Reevaluation(s) Reevaluation #1: 02/07/22 02:01 Medical record is reviewed Symptoms essentially the same. Patient in no distress. Patient is informed of results and questions answered Patient in no distress Procedures - Smoking Cessation Time Spent Discussing Smoking Cessation w/Patient (Minutes): 3 Patient Acknowledges Need for Cessation: Yes Medical Decision Making - Medical Decision Making Patient presents with symptomology consistent with viral upper respiratory infection/viral bronchitis. We'll order influenza and COVID-19 testing. Chest x-ray ordered.Medical record is reviewed plan for reevaluation - Lab Data Lab Results 02/07/22 02/07/22 Range/Units 00:22 00:22 Coronavirus (PCR) Not Detected (Not Detectd) Influenza Type A RNA Not Detected (Not Detectd) Influenza Type B (PCR) Not Detected (Not Detectd) - Radiology Data Radiology results: report reviewed, image reviewed Possible lung nodule, otherwise no acute changes Disposition Clinical Impression: Asthma with COPD with exacerbation, Cigarette smoker Disposition: HOME SELF-CARE Condition: Good Instructions (If sedation given, give patient instructions): COPD (Chronic Obstructive Pulmonary Disease) (ED), How to Stop Smoking (ED) Additional Instructions: Possible lung nodule, he'll need to follow-up with your regular physician to have repeat imaging. Call Wednesday morning to schedule follow-up appointment. Take antibiotics as directed. Use your home inhaler, 2 puffs every 4 hours as needed for wheezing. Work on smoking cessation. Follow-up with your regular physician as directed. Return to the ER immediately if any symptoms worsen, new symptoms arise, or any other problems develop. Prescriptions: predniSONE 50 mg PO DAILY #4 tab Albuterol Inhaler [Ventolin Hfa Inhaler] 2 puff INHALATION Q4HR PRN #1 each PRN Reason: Wheezing Is patient prescribed a controlled substance at d/c from ED?: No Referrals: Cleo Dixon DO [Primary Care Provider] - 1-2 days
--- NOTE | 2022-02-07 01:13 | XR ---
EXAM: XR Chest, 2 Views CLINICAL HISTORY: Cough. TECHNIQUE: Frontal and lateral views of the chest. COMPARISON: 10/03/2018. FINDINGS: Lungs: A 1.3 cm nodule projects at the right midlung. A 1.4 cm nodule projects at the left midlung. No consolidative changes. Pleural space: Unremarkable. No pneumothorax. Heart: Unremarkable. No cardiomegaly. Mediastinum: Cardiomediastinal silhouette unremarkable. Bones/joints: Gentle dextro scoliosis of the thoracic spine. Mild to moderate degenerative disc disease of the thoracic spine. Soft tissues: Soft tissues are unremarkable. IMPRESSION: 1. Bilateral pulmonary nodules are noted on the AP projection which presumably represent nipple shadows. 2. Repeat AP view of the chest with nipple markers is advised.
[2022-02-07] MEDS ORDERED: predniSONE 50 MG TAB PO STA (01:55)
== END 2022-02-07 02:24 | disposition home or self-care (01) ==
LOC: EC 22:33
DX: J44.1 Chronic obstructive pulmonary disease with (acute) exacerbation (principal); F17.210 Nicotine dependence, cigarettes, uncomplicated; R51.9 Headache, unspecified; K21.9 Gastro-esophageal reflux disease without esophagitis; Z79.899 Other long term (current) drug therapy; Z20.822 Contact with and (suspected) exposure to COVID-19
CPT/HCPCS: 87502; 87635; 71046; 99284; J7512

== ENCOUNTER → 2022-02-13 | Outpatient (CLI) | payer MEDICARE, OTHER | END | disposition home or self-care (01) | LOC: LABWHC1 14:55 | PROVIDERS: ATTEND Physician Assistant | DX: Z20.822 Contact with and (suspected) exposure to COVID-19 (principal) | CPT/HCPCS: 36415; 86769 ==

== ENCOUNTER → 2022-02-13 | Outpatient (CLI) | payer MEDICARE, OTHER ==
--- NOTE | 2022-02-13 16:15 | XR ---
EXAMINATION TYPE: XR chest 1V DATE OF EXAM: 02/13/2022 COMPARISON: 02/07/2022 HISTORY: Abnormal x-ray TECHNIQUE: Single frontal view of the chest is obtained. FINDINGS: There is no focal air space opacity, pleural effusion, or pneumothorax seen. The cardiac silhouette size is within normal limits. The osseous structures are intact. Hypertrophic changes of the vertebral column. IMPRESSION: No acute process. No sizable pulmonary nodule.
== END | disposition home or self-care (01) ==
LOC: RADXRMAIN 15:15
PROVIDERS: ATTEND Physician Assistant
DX: R91.8 Other nonspecific abnormal finding of lung field (principal)
CPT/HCPCS: 71045

== ENCOUNTER 2022-08-04 10:44 | Emergency (ER) | payer MEDICARE, OTHER ==
[2022-08-04 10:57] VITALS: BP 130/77; PULSE 78; RESP 18; TEMP 97.5
--- NOTE | 2022-08-04 12:21 | XR ---
EXAMINATION TYPE: XR KUB DATE OF EXAM: 08/04/2022 COMPARISON: NONE HISTORY: Constipation TECHNIQUE: One view abdominal series FINDINGS: The osseous structures are intact. The bowel gas pattern is nonspecific. Lung bases are clear. Nodu le right lung base likely related to nipple shadow. Hypertrophic and degenerative changes lower lumba r spine. IMPRESSION: 1. Nonspecific abdomen. No diagnostic evidence of obstruction. Retained fecal debris along the left colon. 2. Nodule overlying the right lower lobe most likely related to nipple shadow and could be followed w ith frontal view chest x-ray with nipple markers as clinically warranted.
--- NOTE | 2022-08-04 12:50 | ED ---
Abdominal Pain HPI - General Chief Complaint: Abdominal Pain Stated Complaint: constipation Time Seen by Provider: 08/04/22 11:10 Source: patient, RN notes reviewed Mode of arrival: ambulatory Limitations: no limitations - History of Present Illness Initial Comments: 42-year-old female presents emergency Department chief complaint of constipation. Patient states she's been taking laxatives, softeners with no real relief. Patient states she is constipated feels like she has to go. No prior abdominal surgeries. Denies any fevers or chills. She states she is passing gas denies any vomiting, does admit to slight nausea without fevers chills chest pain shortness of breath. - Related Data Home Medications Medication Instructions Recorded Confirmed Famotidine [Pepcid] 40 mg PO DAILY 08/26/21 08/26/21 Omeprazole 20 mg PO BID 08/26/21 08/26/21 Topiramate [Topamax] 100 mg PO BID 08/26/21 08/26/21 Previous Rx's Medication Instructions Recorded Acetaminophen Tab [Tylenol] 650 mg PO Q4HR PRN tab 08/29/21 Atorvastatin [Lipitor] 10 mg PO HS 30 Days tab 08/29/21 Celecoxib [CeleBREX] 200 mg PO DAILY 30 Days cap 08/29/21 Divalproex ER [Depakote ER] 1,500 mg PO HS 30 Days tab 08/29/21 Melatonin 10 mg PO HS 30 Days tablet 08/29/21 Nicotine 14Mg/24Hr Patch [Habitrol] 1 patch TRANSDERM DAILY 14 Days 08/29/21 patch OLANZapine [ZyPREXA] 30 mg PO HS 30 Days tab 08/29/21 Oxybutynin Chloride [Ditropan] 5 mg PO DAILY 30 Days tab 08/29/21 Topiramate [Topamax] 100 mg PO BID 30 Days tab 08/29/21 hydrOXYzine pamoate [Vistaril] 50 mg PO BID PRN 30 Days cap 08/29/21 Albuterol Inhaler [Ventolin Hfa 2 puff INHALATION Q4HR PRN #1 each 02/07/22 Inhaler] Azithromycin [Zithromax Tri-Dmitry (3 500 mg PO DAILY 3 Days #3 tab 02/07/22 tabs)] predniSONE 50 mg PO DAILY #4 tab 02/07/22 Allergies Allergy/AdvReac Type Severity Reaction Status Date / Time No Known Allergies Allergy Verified 08/04/22 10:57 Review of Systems ROS Statement: Those systems with pertinent positive or pertinent negative responses have been documented in the HPI. ROS Other: All systems not noted in ROS Statement are negative. Past Medical History Past Medical History: Asthma, GERD/Reflux Additional Past Medical History / Comment(s): Occasional back pain, past tongue laceration. herpes History of Any Multi-Drug Resistant Organisms: MRSA Date of last positivie culture/infection: 2014 MDRO Source:: finger Past Surgical History: Orthopedic Surgery Additional Past Surgical History / Comment(s): R inguinal hernia repair, R shoulder aniya removal per spouse, R ankle fracture Past Anesthesia/Blood Transfusion Reactions: No Reported Reaction Past Psychological History: Anxiety, Bipolar, Depression, Schizoaffective Diso rder Smoking Status: Current every day smoker Past Alcohol Use History: Occasional Past Drug Use History: Cocaine, Heroin, IV Drug Use, Marijuana, Prescription Drug Abuse - Past Family History Mother Family Medical History: Hypertension Father Family Medical History: Cancer Additional Family Medical History / Comment(s): Unknown type of cancer. General Exam Limitations: no limitations General appearance: alert, in no apparent distress Head exam: Present: atraumatic, normocephalic, normal inspection Eye exam: Present: normal appearance, PERRL, EOMI. Absent: scleral icterus, conjunctival injection, periorbital swelling Neck exam: Present: normal inspection. Absent: tenderness, meningismus, lymphadenopathy Respiratory exam: Present: normal lung sounds bilaterally. Absent: respiratory distress, wheezes, rales, rhonchi, stridor Cardiovascular Exam: Present: regular rate, normal rhythm, normal heart sounds. Absent: systolic murmur, diastolic murmur, rubs, gallop, clicks GI/Abdominal exam: Present: soft, normal bowel sounds. Absent: distended, tenderness, guarding, rebound, rigid Back exam: Absent: CVA tenderness (R), CVA tenderness (L) Course Vital Signs 08/04/22 10:55 Temperature 97.5 F L Pulse Rate 78 Respiratory 18 Rate Blood Pressure 130/77 O2 Sat by Pulse 100 Oximetry Medical Decision Making - Medical Decision Making 42-year-old female presented for constipation x-ray does show mild stool in left side. Patient was given enema will be discharged in stable condition return parameters were discussed. Disposition Clinical Impression: Constipation Disposition: HOME SELF-CARE Condition: Stable Instructions (If sedation given, give patient instructions): Constipation (ED), High Fiber Diet (ED) Additional Instructions: Please return to the Emergency Department if symptoms worsen or any other concerns. Is patient prescribed a controlled substance at d/c from ED?: No Referrals: Cleo Dixon DO [Primary Care Provider] - 1-2 days Time of Disposition: 12:50
== END 2022-08-04 14:03 | disposition home or self-care (01) ==
LOC: EC 10:44
DX: K59.00 Constipation, unspecified (principal); J45.909 Unspecified asthma, uncomplicated; K21.9 Gastro-esophageal reflux disease without esophagitis; F41.9 Anxiety disorder, unspecified; F31.9 Bipolar disorder, unspecified; F17.200 Nicotine dependence, unspecified, uncomplicated; Z79.899 Other long term (current) drug therapy
CPT/HCPCS: 74018; 99283; 99284

== ENCOUNTER → 2022-09-02 | Outpatient (CLI) | payer MEDICARE, OTHER ==
[2022-09-02 22:52] LABS: INR 0.99 (0.90-1.11); Prothrombin Time 11.2 sec (9.9-11.9)
[2022-09-02 23:33] LABS: HCT 40.3 % (37.2-46.3); HGB 12.9 g/dL (12.0-15.0); MCH 31.7 pg (27.0-32.0); Mean Platelet Volume 11.8 fL (9.5-12.2); NRBC Per 100 WBC 0 /100 WBCS (0.0-0.0); Platelet Count 240 X 10*3/uL (140-440); RBC 4.07 X 10*6/uL (4.10-5.20); WBC 8.49 X 10*3/uL (4.50-10.00)
[2022-09-03 12:37] LABS: ALT 10 U/L (8-44); AST 18 U/L (13-35); African American GFR (CKD) 103.9 (60.0-200.0); Albumin 4.4 g/dL (3.8-4.9); Albumin/Globulin Ratio 1.69 (1.60-3.17); Alkaline Phosphatase 78 U/L (41-126); BUN/Creat Ratio 20.25 Ratio (12.00-20.00); Blood Urea Nitrogen 16.2 mg/dL (9.0-27.0); Carbon Dioxide 22.8 mmol/L (20.0-27.5); Chloride 106 mmol/L (96-109); Globulin 2.6 g/dL (1.6-3.3); Glucose 59 mg/dL (70-110); LDL Cholesterol,Calculated 82.7 mg/dL (0.0-131.0); Non-African American GFR(CKD) 89.7 (60.0-200.0); Sodium 138 mmol/L (135-145)
== END | disposition home or self-care (01) ==
LOC: LABWHC1 14:36
PROVIDERS: ATTEND Physician Assistant
DX: Z01.812 Encounter for preprocedural laboratory examination (principal); S42.002K Fracture of unspecified part of left clavicle, subsequent encounter for fracture with nonunion; E78.5 Hyperlipidemia, unspecified; R73.03 Prediabetes
CPT/HCPCS: 36415; 80053; 80061; 83036; 84443; 85027; 85610; 86850; 86900; 86901

== ENCOUNTER → 2022-09-02 | Outpatient (CLI) | payer MEDICARE, OTHER ==
--- NOTE | 2022-09-03 21:53 | CT ---
EXAMINATION TYPE: CT shoulder LT wo con DATE OF EXAM: 09/02/2022 COMPARISON: None HISTORY: 42-year-old female R42.002K, left shoulder pain, recently injured left clavicle. Presurgical evaluation. TECHNIQUE: Contiguous axial scanning of the left shoulder without IV contrast. Coronal and sagittal r econstructions performed. Reconstructions generated on a dedicated independent workstation. CT DLP: 228.6 mGycm Automated exposure control for dose reduction was used. FINDINGS: There appears to be a subacute to chronic fracture deformity at the distal third clavicular shaft. Th ere is 1 cm of inferior displacement. The distal fracture fragment appears to remain in place due to the presence of intact coracoclavicular ligaments. There appears to be some attempted periosteal and endosteal bony bridging but fracture margin appears largely sclerotic raising concern for delayed union. Correlate as to time from injury. There is [id number] degenerative change of the AC joint. No effusion within the subacromial/subdeltoid bursa. Overall preserved bulk of the rotator cuff. No a trophy of the rotator cuff musculature. The glenohumeral joint appears intact. No significant joint effusion. Visualized left hemithorax appears clear. IMPRESSION: 1. SUBACUTE TO CHRONIC FRACTURE DEFORMITY OF THE DISTAL THIRD LEFT CLAVICULAR SHAFT. THERE IS 1 CM OF INFERIOR DISPLACEMENT. THE DISTAL FRACTURE FRAGMENT REMAINS IN PLACE DUE TO THE PRESENCE OF INTACT C ORACOCLAVICULAR LIGAMENTS. 2. SOME ATTEMPTED PERIOSTEAL AND ENDOSTEAL BONE FORMATION IS NOTED BUT MUCH OF THE FRACTURE MARGIN IS SCLEROTIC RAISING CONCERN FOR DELAYED UNION. CORRELATE TO TIME SINCE INJURY. 3. [id number] AC JOINT OA.
== END | disposition home or self-care (01) ==
LOC: RADCTMAIN 15:26
PROVIDERS: ATTEND Orthopaedic Surgery
DX: Z01.818 Encounter for other preprocedural examination (principal); S42.022K Displaced fracture of shaft of left clavicle, subsequent encounter for fracture with nonunion; M19.012 Primary osteoarthritis, left shoulder

== ENCOUNTER → 2023-03-02 | Outpatient (CLI) | payer MEDICARE, OTHER ==
--- NOTE | 2023-03-03 19:04 | MM ---
Reason for Exam: Screening (asymptomatic). Last mammogram was performed 1 year(s) and 10 month(s) ago. Patient History: Menarche at age 13. Patient has no children. Premenopausal. 05/23/2021, Benign Core Biopsy on the right side. Risk Values: Luisa 5 year model risk: 0.7%. NCI Lifetime model risk: 7.3%. Prior Study Comparison: 11/29/2015 Screening Mammogram, Unknown. 03/23/2019 Bilateral Screening Mammogram, [facility]. 05/02/2020 Bilateral Screening Mammogram, [facility]. 05/05/2021 Bilateral Diagnostic Mammogram, [facility]. Tissue Density: The breast tissue is heterogeneously dense. This may lower the sensitivity of mammography. Findings: Analyzed By CAD. Subareolar density right MLO view is becoming more pronounced from prior exam. Possible underlying nodularity lower inner quadrant periareolar region. Unable to exclude some underlying architectural distortion superiorly on the MLO view. Microclip lateral right breast from prior biopsy. There is an increasing microcalcifications at approximately 9 to 10:00 position inferior to the microclip that have a similar morphology to the biopsied calcifications. Further evaluation is recommended. Overall Assessment: Incomplete: need additional imaging evaluation, BI-RAD 0 Management: Special View Mammogram of the right breast. Diagnostic Breast Ultrasound of the right breast. 1. Additional views to include spot 3-D cc (medial density) spot 3-D MLO (both superior and inferior density) and 3-D lateral views. 2. Also, mag CC and mag ML views of the 9 - 10:00 microcalcifications. 3. Whole right breast ultrasound. [facility] will attempt to contact patient to return for supplemental views and ultrasound if indicated. Electronically signed and approved by: Christopher Murillo M.D. Radiologist
== END | disposition home or self-care (01) ==
LOC: RADMAMWWP 13:14
PROVIDERS: ATTEND Family Medicine
DX: Z12.31 Encounter for screening mammogram for malignant neoplasm of breast (principal)
CPT/HCPCS: 77063; 77067

== ENCOUNTER → 2023-03-11 | Outpatient (CLI) | payer MEDICARE, OTHER ==
--- NOTE | 2023-03-11 13:28 | MM ---
Reason for Exam: Additional evaluation requested from abnormal screening. Last screening mammogram was performed less than 1 month ago. Patient History: Menarche at age 13. Patient has no children. Premenopausal. 05/23/2021, Benign Core Biopsy on the right side. Risk Values: Luisa 5 year model risk: 0.7%. NCI Lifetime model risk: 7.3%. Tissue Density: Right: The breast tissue is heterogeneously dense. This may lower the sensitivity of mammography. Findings: Analyzed By CAD. Microclip along the lateral aspect of the right breast from prior biopsy for calcifications. Grouped heterogeneous calcifications anterior right breast. Tissue sampling recommended. 1 cm nodularity 4:00 anterior right breast incompletely disperses. Further ultrasound evaluation recommended. Overall Assessment: Incomplete: need additional imaging evaluation, BI-RAD 0 Management: Diagnostic Breast Ultrasound of the right breast. Electronically signed and approved by: Christopher Murillo M.D. Radiologist
--- NOTE | 2023-03-11 14:16 | USB ---
Reason for Exam: Additional evaluation requested from abnormal screening. Patient History: Menarche at age 13. Patient has no children. Premenopausal. 05/23/2021, Benign Core Biopsy on the right side. Risk Values: Luisa 5 year model risk: 0.7%. NCI Lifetime model risk: 7.3%. Technique: Method: Whole Breast Handheld. Prior Study Comparison: 05/02/2020 Bilateral Screening Mammogram, [facility]. 05/05/2021 Bilateral Diagnostic Mammogram, [facility]. 03/02/2023 Bilateral MG 3D screening mammo w/cad, [facility]. Findings: The whole breast of the right breast, the axilla of the right breast and the retroareolar of the right breast were scanned. A complete US of all four quadrants of the breast, axilla, and retro-areolar region were reviewed. No solid or cystic masses are identified. Benign duct ectasia is noted. No abnormal intraluminal filling defects. No axillary lymphadenopathy. Overall Assessment: Suspicious, BI-RAD 4 Management: Stereotactic Core Biopsy of the right breast. For the anterior microcalcifications. Results were given to the patient verbally at the time of exam. Electronically signed and approved by: Christopher Murillo M.D. Radiologist
== END | disposition home or self-care (01) ==
LOC: RADMAMWWP 12:48
PROVIDERS: ATTEND Family Medicine
DX: R92.8 Other abnormal and inconclusive findings on diagnostic imaging of breast (principal)
CPT/HCPCS: 77061; 77065

== ENCOUNTER → 2023-04-01 | Day surgery (SDC) | payer MEDICARE, OTHER ==
[2023-04-01 07:47] VITALS: RESP 16
[2023-04-01 09:35] VITALS: BP 106/60; PULSE 59; TEMP 98.1
--- NOTE | 2023-04-07 09:59 | MM ---
Risk Values: Luisa 5 year model risk: 0.7%. NCI Lifetime model risk: 7.3%. Staff Notes: securemark is anterior and inferior on lateral. Prior Study Comparison: 05/05/2021 Bilateral Diagnostic Mammogram, [facility]. 03/02/2023 Bilateral MG 3D screening mammo w/cad, [facility]. 03/11/2023 Right MG 3D work up w/cad RT, [facility]. Pathology Description: Marker Left Behind. Specimen Radiograph. Calcium Found: Yes Cores: 5 Skin Nicks: 1 Gauge: 9 Pathology Description: Marker Left Behind. Specimen Radiograph. Calcium Found: Yes Approach: Lateral to Medial Needle Type: Eviva Cores: 2 Skin Nicks: 1 Gauge: 9 The procedure of stereotactic guided core biopsy was explained to the patient. Benefits, alternatives, and risks were discussed. An informed consent was then obtained. The shortness pathway for biopsy was chosen. Shortness pathway was lateral approach. I performed the localization, then surgeon performed the remainder of the procedure. A vacuum assisted biopsy gun was used to obtain multiple core samples. A second site more posterior site was targeted and multiple core samples were also obtained. The patient tolerated the procedure well without any immediate complication. The patient was kept in the radiology department for short stay after the procedure and then discharged home in stable condition. Targeted calcifications are identified in specimen mammogram. Post biopsy mammogram shows the clip to appear in satisfactory position relative to the targeted area of concern on the preprocedure images. Impression: SUCCESSFUL, UNCOMPLICATED STEREOTACTIC GUIDED CORE BIOPSY OF AREA OF CONCERN IN THE right BREAST. Pathology Results: Result: Benign, Fibrocystic change. A. RIGHT BREAST, SITE A, STEREOTACTIC NEEDLE CORE BIOPSY: Fibrocystic changes including sclerosing adenosis, cysts and apocrine metaplasia with calcifications. B. RIGHT BREAST, SITE B, STEREOTACTIC NEEDLE CORE BIOPSY: Fibrocystic changes including secretory metaplasia, apocrine metaplasia and cysts with calcifications. Overall Assessment: Benign Management: Diagnostic Mammogram of the right breast in 6 months. Electronically signed and approved by: Sundeep Cruz DO
== END ==
LOC: RADMAMWWP 07:23
PROVIDERS: ATTEND Family Medicine
DX: N60.21 Fibroadenosis of right breast (principal); N60.81 Other benign mammary dysplasias of right breast
CPT/HCPCS: 88305; 19081; 19082; A4648; J2001

== ENCOUNTER → 2023-10-11 | Outpatient (CLI) | payer MEDICARE, OTHER ==
--- NOTE | 2023-10-11 10:50 | MM ---
Reason for Exam: Additional evaluation requested from abnormal screening. Last screening mammogram was performed 7 month(s) ago. Patient History: Menarche at age 13. Patient has no children. Premenopausal. 04/01/2023, MG stereo VAD BX addl RT on the Right side. 04/01/2023, Benign MG stereo VAD BX RT on the right side. 05/23/2021, Benign Core Biopsy on the right side. Last menstrual period: 10/07/2023 Risk Values: Luisa 5 year model risk: 0.9%. NCI Lifetime model risk: 7.8%. Prior Study Comparison: 11/29/2015 Screening Mammogram, Unknown. 03/23/2019 Bilateral Screening Mammogram, [facility]. 05/02/2020 Bilateral Screening Mammogram, [facility]. 05/05/2021 Bilateral Diagnostic Mammogram, [facility]. 03/02/2023 Bilateral MG 3D screening mammo w/cad, [facility]. 03/11/2023 Right MG 3D work up w/cad RT, [facility]. Tissue Density: Right: The breast tissue is heterogeneously dense. This may lower the sensitivity of mammography. Findings: Analyzed By CAD. The pattern appears stable. There is a focal asymmetry within the inner left breast present previously appears stable. Scattered benign-appearing calcifications are present. Multiple prior core markers are present. Overall Assessment: Benign, BI-RAD 2 Management: Screening Mammogram of both breasts in 5 months. A negative mammogram report should not preclude additional follow up of suspicious palpable abnormalities. Patient should continue monthly self breast exam. A clinical breast exam by your physician is recommended on an annual basis and results should be correlated with mammographic findings. Electronically signed and approved by: Paco Carter D.O. Radiologis
== END | disposition home or self-care (01) ==
LOC: RADMAMWWP 10:08
PROVIDERS: ATTEND Family Medicine
DX: R92.331 Mammographic heterogeneous density, right breast (principal); N63.10 Unspecified lump in the right breast, unspecified quadrant; N63.20 Unspecified lump in the left breast, unspecified quadrant; R92.1 Mammographic calcification found on diagnostic imaging of breast
CPT/HCPCS: 77061; 77065

== ENCOUNTER → 2023-12-06 | Day surgery (SDC) | payer MEDICARE, OTHER ==
[~2023-12-06] MED LIST: LACTATED RINGERS 1,000 ML IV SCH; LIDOCAINE 1% (10MG/ML) FOR IV START INTRADERMA PRN; PROPOFOL 10 MG/ML 20 ML VIAL IV ONE
[2023-12-06] MEDS: LACTATED RINGERS 1,000 ML IV ONE (12:34)
[2023-12-06 12:54] VITALS: TEMP 97.6
--- NOTE | 2023-12-06 13:24 | P.GSHP ---
History of Present Illness H&P Date: 12/06/23 Chief Complaint: screening colonoscopy this is a 43-year-old female who presents today for screening colonoscopy. Patient denies any significant GI complaints. Past Medical History Past Medical History: Asthma, GERD/Reflux Additional Past Medical History / Comment(s): Routine colonoscopy. Occasional back pain, past tongue laceration History of Any Multi-Drug Resistant Organisms: MRSA Date of last positivie culture/infection: 2014 MDRO Source:: finger Past Surgical History: Hernia Repair, Orthopedic Surgery Additional Past Surgical History / Comment(s): R inguinal hernia repair, R shoulder aniya removal per spouse, R ankle fracture . repair of broken clavicle Past Anesthesia/Blood Transfusion Reactions: No Reported Reaction Smoking Status: Current every day smoker - Past Family History Mother Family Medical History: Hypertension Father Family Medical History: Cancer Additional Family Medical History / Comment(s): Prostate cancer Medications and Allergies Home Medications Medication Instructions Recorded Confirmed Type Omeprazole 20 mg PO QAM 08/26/21 12/06/23 History Atorvastatin [Lipitor] 10 mg PO HS 30 Days tab 08/29/21 12/06/23 Rx Melatonin 10 mg PO HS 30 Days tablet 08/29/21 12/06/23 Rx Albuterol Inhaler [Ventolin Hfa 2 puff INHALATION Q4HR PRN #1 each 02/07/22 12/06/23 Rx Inhaler] Divalproex [Depakote] 500 mg PO HS 03/12/23 12/06/23 History Benztropine Mesylate 1 mg PO BID 12/03/23 12/06/23 History Celecoxib [CeleBREX] 200 mg PO QAM 12/03/23 12/06/23 History Topiramate [Topamax] 50 mg PO HS 12/03/23 12/06/23 History fluPHENAZine decanoate [Prolixin 50 mg IM FR 12/03/23 12/06/23 History Decanoate] oxyBUTYnin chloride [Ditropan] 5 mg PO QAM 12/03/23 12/06/23 History Allergies Allergy/AdvReac Type Severity Reaction Status Date / Time cat dander Allergy Itching Verified 12/06/23 12:15 mold Allergy Itching Verified 12/06/23 12:15 pollen extracts Allergy Itching Verified 12/06/23 12:15 Surgical - Exam Vital Signs Temp Pulse Resp BP Pulse Ox 97.6 F 90 14 114/70 99 12/06/23 12:17 12/06/23 12:17 12/06/23 12:17 12/06/23 12:17 12/06/23 12:17 - General well developed, well nourished, no distress - Eyes PERRL - ENT normal pinna, normal nares - Neck no masses - Respiratory normal expansion - Cardiovascular Rhythm: regular - Abdomen Abdomen: soft, non tender Assessment and Plan Assessment: we'll perform screening colonoscopy
--- NOTE | 2023-12-06 13:27 | P.OP ---
Date of Procedure: 12/06/23 Preoperative Diagnosis: screening colonoscopy Postoperative Diagnosis: mild diverticulosis Procedure(s) Performed: colonoscopy Anesthesia: MAC Surgeon: Zac Harris Pathology: none sent Condition: stable Disposition: PACU Description of Procedure: patient's placed on the endoscopy table in the lateral position. She received IV sedation. Digital rectal exam was performed. This revealed no abnormalities. The flexible colonoscope was then placed patient anus and passed throughout the entire colon. The ileocecal valve was visualized. The cecum, ascending and transverse colon appeared normal. The descending and sigmoid colon had mild diverticulosis. Scope was then brought back the rectum appeared normal. Scope withdrawn for patient.
[2023-12-06 14:26] VITALS: BP 117/74; PULSE 78; RESP 18
== END ==
LOC: ORWHC2ENDO 10:54
PROVIDERS: ATTEND Surgery
DX: Z12.11 Encounter for screening for malignant neoplasm of colon (principal); K57.30 Diverticulosis of large intestine without perforation or abscess without bleeding; J45.909 Unspecified asthma, uncomplicated; K21.9 Gastro-esophageal reflux disease without esophagitis; F31.9 Bipolar disorder, unspecified; F20.9 Schizophrenia, unspecified; F17.200 Nicotine dependence, unspecified, uncomplicated; Z86.14 Personal history of Methicillin resistant Staphylococcus aureus infection; Z98.890 Other specified postprocedural states; Z91.018 Allergy to other foods; Z91.048 Other nonmedicinal substance allergy status; Z88.8 Allergy status to other drugs, medicaments and biological substances; Z79.899 Other long term (current) drug therapy
CPT/HCPCS: 81025

== ENCOUNTER → 2024-03-13 | Outpatient (CLI) | payer MEDICARE, OTHER ==
--- NOTE | 2024-03-14 08:35 | MM ---
Reason for Exam: Screening (asymptomatic). Last screening mammogram was performed 12 month(s) ago. Patient History: Menarche at age 13. Patient has no children. Premenopausal. 04/01/2023, MG stereo VAD BX addl RT on the Right side. 04/01/2023, Benign MG stereo VAD BX RT on the right side. 05/23/2021, Benign Core Biopsy on the right side. Last menstrual period: 02/19/2024 Risk Values: Luisa 5 year model risk: 0.9%. NCI Lifetime model risk: 7.8%. Prior Study Comparison: 03/02/2023 Bilateral MG 3D screening mammo w/cad, [facility]. 03/11/2023 Right MG 3D work up w/cad RT, [facility]. 10/11/2023 Right MG 3D diag mammo w/cad RT, [facility]. Tissue Density: The breasts are heterogeneously dense, which may obscure small masses. Findings: Analyzed By CAD. There is no suspicious group of microcalcifications or new suspicious mass in either breast. Overall Assessment: Benign, BI-RAD 2 Management: Screening Mammogram of both breasts in 1 year. . Patient should continue monthly self-breast exams. A clinical breast exam by your physician is recommended on an annual basis. This exam should not preclude additional follow-up of suspicious palpable abnormalities. Note on Luisa scores and lifetime risk: 1. A Luisa score greater than 3% is considered moderate risk. If this is the case, consider specialist referral to assess eligibility for a risk reducing agent. 2. If overall lifetime risk for the development of breast cancer is 20% or higher, the patient may qualify for future screening with alternating mammogram and breast MRI. Electronically signed and approved by: Chapo Reddy M.D. Radiologis
== END | disposition home or self-care (01) ==
LOC: RADMAMWWP 07:55
PROVIDERS: ATTEND Family Medicine
DX: Z12.31 Encounter for screening mammogram for malignant neoplasm of breast (principal); R92.333 Mammographic heterogeneous density, bilateral breasts
CPT/HCPCS: 77063; 77067

== ENCOUNTER → 2024-05-15 | Outpatient (CLI) | payer MEDICARE, OTHER ==
--- NOTE | 2024-05-15 13:23 | XR ---
EXAMINATION TYPE: XR shoulder limited RT DATE OF EXAM: 05/15/2024 1:16 PM CLINICAL INDICATION: Female, 44 years old with history of S49.91XA R shoulder injury; [facility] COMPARISON: None TECHNIQUE: XR shoulder limited RT; examined in AP, internally rotated and scapular Y projections. FINDINGS: No evidence of acute osseous pathology, joint dislocation, or soft tissue swelling. The remaining po rtions of the visualized chest are unremarkable. Mild degeneration changes of the acromion and dista l clavicle. IMPRESSION: 1. No acute osseous pathology. 2. Mild shoulder osteoarthrosis. [facility], , 05/15/2024 1:21 PM
== END | disposition home or self-care (01) ==
LOC: RADXRMAIN 12:58
PROVIDERS: ATTEND Family Medicine
DX: S49.91XA Unspecified injury of right shoulder and upper arm, initial encounter

== ENCOUNTER → 2025-03-07 | Outpatient (CLI) | payer MEDICARE, OTHER ==
--- NOTE | 2025-03-07 17:50 | MR ---
INDICATION: Patient age:Female; 44 years old; Reason for study: M51.379 INTVRT DISC DEGEN M25.552 PAIN IN LEFT HIP; [facility]. COMPARISONS: No priors. TECHNIQUE: Multi planar, multi sequence imaging was performed utilizing: T1-weighted, T2-weighted, a nd turbo inversion recovery imaging of the lumbar spine. The patient was not given contrast. FINDINGS: The lumbar vertebral bodies do have preserved heights and alignment. Multilevel disc kim ccation is present of the lower lumbar spine. Prominent disc height loss at L4-L5 and L5-S1. Prominen t type II Modic changes involving the endplates around the L4-L5 and L5-S1 disc. Anterior osteophytos is at these levels. The conus medullaris and the distal spinal cord do appear unremarkable with regar ds to their signal intensity and morphology. Couple of small sacral Tarlov cysts. L1-L2: No significant disc pathology is identified. The spinal canal and neural foramen are patent. L2-L3: No significant disc pathology is identified. The spinal canal and neural foramen are patent. L3-L4: Diffuse disc bulge with mild effacement of the anterior thecal sac. Bilateral facet arthropath y with prominent ligamentum flavum buckling. Results in moderate spinal canal stenosis. Mild bilatera l neural foraminal stenosis. L4-L5: Diffuse disc bulge with mild effacement of the anterior thecal sac. Bilateral facet arthropath y with prominent ligamentum flavum buckling. Results in mild spinal canal stenosis. Mild bilateral ne ural foraminal stenosis. L5-S1: Diffuse disc bulge. No significant spinal canal stenosis. Bilateral facet arthropathy. No sign ificant neural foraminal stenosis. Other significant findings: None. IMPRESSION: Multilevel disc degeneration with associated osteoarthritic changes of the lower lumbar spine as desc ribed above. No disc herniation. Most pronounced at L3-L4 with moderate spinal canal stenosis. [facility], , 03/07/2025 5:47 PM
== END | disposition home or self-care (01) ==
LOC: RADMRIMAIN 16:18
PROVIDERS: ATTEND Family Medicine
DX: M48.061 Spinal stenosis, lumbar region without neurogenic claudication (principal); M51.379 Other intervertebral disc degeneration, lumbosacral region without mention of lumbar back pain or lower extremity pain; M47.816 Spondylosis without myelopathy or radiculopathy, lumbar region
CPT/HCPCS: 72148